=== PATIENT | female | born 1940 | race Caucasian/White ===

== ENCOUNTER 2018-07-25 19:54 | Observation (INO) ==
[2018-07-25 20:35] LABS: Hematocrit 35.3 % (37.0-47.0); Hemoglobin 10.5 gm/dL (12.5-16.0); Mean Cell Volume 95.4 fl (78-100); Mean Corpuscular Hemoglobin 28.4 pg (27-31); Mean Corpuscular Hgb Conc 29.7 g/dl (32-36); Neutrophil # 6.3 K/mm3 (1.3-6.0); Platelet Count 254 K/mm3 (150-450); Red Cell Distribution Width 13.2 % (11.5-14.0); White Blood Count 9.8 K/mm3 (4.0-10.5)
--- NOTE | 2018-07-25 20:52 | ERNOTE ---
Integumentary HPI - Narrative Date of Service: 07/25/18 - General Presenting Symptoms: other - cellulitis Time Seen by Provider: 07/25/18 20:08 Source: patient, EMS notes reviewed Exam Limitations: no limitations - Immun/Allergies/Home Medications Immunizations: IMMUNIZATION HX Immunizations Up to Date Yes Allergies/Adverse Reactions: Allergies Allergy/AdvReac Type Severity Reaction Status Date / Time cephalexin Allergy Severe RASH Verified 07/23/18 18:26 albuterol Allergy Verified 07/23/18 18:26 cefdinir Allergy Verified 07/23/18 18:26 Sulfa (Sulfonamide Allergy Verified 07/23/18 18:26 Antibiotics) Home Medications: HOME MEDICATIONS acetaminophen 325 mg tablet 650 mg PO Q4H PRN tab 03/05/18 [Last Taken Unknown] ascorbic acid (vitamin C) 500 mg tablet 500 mg PO DAILY 03/05/18 [Last Taken 05/10/18] aspirin 81 mg tablet,delayed release 81 mg PO DAILY 03/05/18 [Last Taken 05/10/18] bisacodyl 10 mg rectal suppository 10 mg [place] DAILY PRN 03/05/18 [Last Taken Unknown] calcium carbonate 200 mg calcium (500 mg) chewable tablet 200 mg PO QID PRN tab 03/05/18 [Last Taken Unknown] cholecalciferol (vitamin D3) 2,000 unit tablet 4,000 unit PO DAILY 03/05/18 [Last Taken 05/10/18] cyanocobalamin (vit B-12) 500 mcg tablet 500 mcg PO DAILY 03/05/18 [Last Taken 05/10/18] fluticasone 220 mcg/actuation HFA aerosol inhaler 2 puff IH BID 30 Days #12 g 03/05/18 [Last Taken 05/10/18] furosemide 40 mg tablet 40 mg PO DAILY 28 Days #28 tab 03/05/18 [Last Taken 05/10/18] gabapentin 300 mg capsule 300 mg PO TID 28 Days #84 cap 03/05/18 [Last Taken 05/10/18] magnesium hydroxide 400 mg/5 mL oral suspension 30 ml PO DAILY PRN ml 03/05/18 [Last Taken Unknown] metoprolol tartrate 25 mg tablet 25 mg PO BID 28 Days #56 tab 03/05/18 [Last Taken 05/10/18] omeprazole 40 mg capsule,delayed release 40 mg PO DAILY 28 Days #28 cap 03/05/18 [Last Taken 05/10/18] polysaccharide iron complex 150 mg iron capsule 150 mg PO DAILY cap 03/05/18 [Last Taken Unknown] psyllium oral powder 2 tsp PO DAILY PRN 03/05/18 [Last Taken Unknown] tolterodine 1 mg tablet 1 mg PO BID 14 Days #28 tab 03/05/18 [Last Taken Unknown] tramadol 50 mg tablet 50 mg PO Q6H PRN 4 Days #16 tab 03/05/18 [Last Taken Unknown] Levalbuterol Tartrate [Levalbuterol Tartrate Hfa] 2 puff INHALATION Q4H PRN 05/10/18 [Last Taken Unknown] Loratadine 10 mg PO DAILY 05/10/18 [Last Taken 05/10/18] Menthol/Zinc Oxide [Calmoseptine Ointment] 1 appl TOPICAL BID PRN 05/10/18 [Last Taken Unknown] Mometasone Furoate [Elocon] 1 appl TOPICAL BID 05/10/18 [Last Taken Unknown] Mupirocin [Bactroban] 1 appl TOPICAL BID 05/10/18 [Last Taken Unknown] diphenhydramine-zinc acetate 1 %-0.1 % topical cream 1 applic TP Q12H 05/27/18 [Last Taken Unknown] nystatin 100,000 unit/gram topical powder 1 applic TP BID PRN 05/27/18 [Last Taken Unknown] pramoxine 1 %-zinc oxide 12.5 % topical ointment 1 applic TP BID PRN g 05/27/18 [Last Taken Unknown] triamcinolone acetonide 0.1 % topical cream 1 applic TP BID PRN 05/27/18 [Last Taken Unknown] amitriptyline 10 mg tablet 10 mg PO HS #13 tab 06/25/18 [Last Taken Unknown] guaifenesin 100 mg/5 mL oral liquid 200 mg PO Q4H PRN 06/25/18 [Last Taken Unknown] oxycodone-acetaminophen 2.5 mg-325 mg tablet 1 tab PO HS #30 tab 07/15/18 [Last Taken Unknown] - History of Present Illness Narrative: patient presents to ed with c/o cellulitis, was seen on thursday, started on keflx, cellulitis has worsened in lower extremities Location: Reports: lower extremity Quality: Reports: painful, burning Severity: moderate Modifying Factors - (Improves): Reports: nothing Modifying Factors - (Worsens): Reports: nothing Associated Symptoms: Reports: blisters, rash Prior Treatment: Reports: recently seen, treated by physician Review of Systems - Review of Systems Constitutional: Present: See HPI, fatigue, malaise EYE: Present: no symptoms reported ENT: Present: no symptoms reported Respiratory: Present: no symptoms reported Cardiology: Present: no symptoms reported Gastrointestinal/Abdominal: Present: no symptoms reported Genitourinary: Present: no symptoms reported Musculoskeletal: Present: no symptoms reported Skin: Present: See HPI, other - worsening celulitis of lower extremities Neurological: Present: See HPI Endocrine: Present: See HPI Hematologic/Lymphatic: Present: See HPI Psych: Present: See HPI All Other Systems: All systems neg except as marked Medical History (Last Reviewed 07/25/18 @ 20:07 by Kami Alonso RN) Bilateral bunions Bilateral lower extremity edema COPD (chronic obstructive pulmonary disease) Chronic respiratory failure, unspecified whether with hypoxia or hypercapnia Dependence on supplemental oxygen Essential (primary) hypertension Flat feet, bilateral Gastro-esophageal reflux disease without esophagitis Hx of breast lump Hx of hysterectomy Hypothyroidism, unspecified Iron deficiency anemia, unspecified Major depressive disorder with single episode Morbid (severe) obesity due to excess calories Morbid (severe) obesity with alveolar hypoventilation Muscle weakness (generalized) Onychomycosis Other abnormalities of gait and mobility Other forms of dyspnea Other sleep apnea Pain in unspecified knee Peripheral vascular disease, unspecified Polyp of colon Toe pain, bilateral Unspecified cataract Vitamin B12 deficiency anemia due to intrinsic factor deficiency Vitamin D deficiency, unspecified Surgical History: Surgical History (Last Reviewed 07/25/18 @ 20:07 by Kami Alonso RN) Hx laparoscopic cholecystectomy Hx of breast lump removal Hx of hernia repair Hx of total knee replacement Family History: Family History (Last Reviewed 07/25/18 @ 20:07 by Kami Alonso RN) Other No pertinent family history Social History: Preferred Language Austrian Do you have any pentecostal or No cultural preference? Smoking Status Never smoker (Last Updated 07/09/18 @ 16:21 by Ayla Cifuentes DPM) No Social History Section defined Physical Exam - Physical Exam General Appearance: Present: alert, anxious Head Exam: Present: normal inspection, no evidence of injury Eye Exam: Normal inspection: bilateral, PERRL: bilateral, EOMI: bilateral Ears, Nose, Throat: Present: normal ENT inspection, normal pharynx Neck: Present: normal inspection, nontender Respiratory: Present: no respiratory distress, normal breath sounds, no accessory muscle use, chest nontender, lungs clear Cardiovascular/Chest: Present: regular rate, rhythm, no murmur, normal peripheral pulses Gastrointestinal/Abdominal: Present: normal bowel sounds, nontender, nond istended, soft, no organomegaly Back Exam: Present: normal inspection, normal range of motion, no CVA tenderness, no vertebral tenderness Extremity Exam: Present: normal except - - erythema and pain to lower extremities, blisters present Neurological Exam: Present: alert, oriented, normal mood/affect, no motor/sensory deficits Skin Exam: Present: normal color, warm/dry, other - cellulitis noted above Lymphatic Exam: Present: no adenopathy Progress - Date and Time Seen: Date and Time: 07/25/18 21:[address] pereyra accepted to observation forfailed outpatient treatment of cellulitis - Results and Orders Patient's Lab Results:: I have reviewed the patient's lab results. - Vital Signs Patient's Vital Signs:: I have reviewed the patient's vital signs. Vital Signs: Vital Signs 07/25/18 20:00 Temperature 37.5 C Pulse Rate 90 Respiratory Rate 15 Blood Pressure 140/64 O2 Sat by Pulse Oximetry 99 - Progress/Reassessment Chief Complaint: Cellulitis Progress:: Unchanged - Transfer of Care Expected Disposition: Admit Plan - Plan Plan: to admit to observation Departure Clinical Impression: Cellulitis - Departure Disposition: Still a patient Condition: Stable
[2018-07-25 20:58] LABS: Albumin * 2.9 gm/dl (3.4-5.0); Anion Gap 8.7 mmol/L (6.8-13.8); BUN/Creatinine Ratio 17.6 (9.0-21.6); Bilirubin, Total 0.5 mg/dL (0.0-1.1); Ca. Corrected For Albumin 9.9 mg/dL (8.4-10.2); Calcium * 9.3 mg/dL (7.9-10.9); Potassium 3.7 mmol/L (3.4-4.6); Total Protein 6.7 gm/dL (6.2-8.2)
[2018-07-25 21:15] LABS: Urine Bilirubin Negative (NEGATIVE); Urine Blood Negative /ul (NEGATIVE); Urine Ketone Negative (NEGATIVE); Urine Nitrite Negative (NEGATIVE); Urine Protein Negative (NEGATIVE); Urine Specific Gravity <=1.005 SP.GR. (1.005-1.010); Urine Urobilinogen Normal (NORMAL)
[2018-07-25 21:21] LABS: CRP 23.7 mg/dL (0.0-0.9)
[2018-07-25] MEDS ORDERED: MORPHINE SULFATE 4 MG/ML SYRG IV ONE (21:25)
[2018-07-25 21:30] LABS: Urine Appearance Clear (CLEAR); Urine Bacteria TRACE; Urine Color Yellow; Urine RBC None Seen /hpf (0-5); Urine WBC None Seen /hpf (0-5)
[2018-07-25] MEDS ORDERED: CLINDAMYCIN PHOSPHATE 600 MG in DEXTROSE 5 % IN WATER 100 ML IV ONE ×2 (21:39)
[2018-07-25] MEDS: CLINDAMYCIN PHOSPHATE 600 MG in DEXTROSE 5 % IN WATER 100 ML IV SCH ×2 (23:49)
[2018-07-26] MEDS: CLINDAMYCIN PHOSPHATE 600 MG in DEXTROSE 5 % IN WATER 100 ML IV SCH ×2 (05:20)
[2018-07-26] MEDS ORDERED: LEVALBUTEROL HCL 1.25 MG/3 ML AMPUL IH PRN (08:39)
[2018-07-26] MEDS ORDERED: BISACODYL 10 MG SUPP.RECT RC PRN (08:39)
[2018-07-26] MEDS ORDERED: ACETAMINOPHEN 325 MG TABLET PO PRN (08:39)
--- NOTE | 2018-07-26 08:46 | HP ---
Chief Complaint - Chief Complaint Date of Service: 07/26/18 Time of Service: 08:35 Chief Complaint: cellulitis History of Present Illness: Patient seen and examined, but is uncooperative during history and physical, stating she is in a bad mood today. She is a resident of the [facility], and was treated for cellulitis with keflex. She presented to the ED when it wasn't improving. She expressed concern that her swelling will never resolve, and she will have to keep her feet up for the rest of her life, and she doesn't feel like she can do that. She is worried about having a crack in her right knee after her fall 2 days prior. Medical History (Last Reviewed 07/25/18 @ 23:31 by Shirley Singh RN) Bilateral bunions Bilateral lower extremity edema COPD (chronic obstructive pulmonary disease) Chronic respiratory failure, unspecified whether with hypoxia or hypercapnia Dependence on supplemental oxygen Essential (primary) hypertension Flat feet, bilateral Gastro-esophageal reflux disease without esophagitis Hx of breast lump Hx of hysterectomy Hypothyroidism, unspecified Iron deficiency anemia, unspecified Major depressive disorder with single episode Morbid (severe) obesity due to excess calories Morbid (severe) obesity with alveolar hypoventilation Muscle weakness (generalized) Onychomycosis Other abnormalities of gait and mobility Other forms of dyspnea Other sleep apnea Pain in unspecified knee Peripheral vascular disease, unspecified Polyp of colon Toe pain, bilateral Unspecified cataract Vitamin B12 deficiency anemia due to intrinsic factor deficiency Vitamin D deficiency, unspecified Surgical History: Surgical History (Last Reviewed 07/25/18 @ 23:31 by Shirley Singh RN) Hx laparoscopic cholecystectomy Hx of breast lump removal Hx of hernia repair Hx of total knee replacement Family History: Family History (Last Reviewed 07/25/18 @ 23:31 by Shirley Singh RN) Other No pertinent family history Social History: Patient Lives/Resources [employer] Utilized Occupation Dietary Preferred Language Estonian Do you have any yazidism or No cultural preference? Smoking Status Former smoker Have you smoked in the past 12 No months Do you dip or chew tobacco No (Last Updated 07/09/18 @ 16:21 by Ayla Cifuentes DPM) No Social History Section defined Review Of Systems (GEN) - Review of Systems Musculoskeletal: Present: Joint Pain - right knee Additional Comments: Patient declined answering ROS questions Immunizations: IMMUNIZATION HX Immunizations Up to Date Yes Allergies/Adverse Reactions: Allergies Allergy/AdvReac Type Severity Reaction Status Date / Time cephalexin Allergy Severe RASH Verified 07/23/18 18:26 albuterol Allergy Verified 07/23/18 18:26 cefdinir Allergy Verified 07/23/18 18:26 Sulfa (Sulfonamide Allergy Verified 07/23/18 18:26 Antibiotics) Home Medications: HOME MEDICATIONS acetaminophen 325 mg tablet 650 mg PO Q4H PRN tab 03/05/18 [Last Taken Unknown] ascorbic acid (vitamin C) 500 mg tablet 500 mg PO DAILY 03/05/18 [Last Taken 05/10/18] aspirin 81 mg tablet,delayed release 81 mg PO DAILY 03/05/18 [Last Taken 05/10/18] bisacodyl 10 mg rectal suppository 10 mg [place] DAILY PRN 03/05/18 [Last Taken Unknown] calcium carbonate 200 mg calcium (500 mg) chewable tablet 200 mg PO QID PRN tab 03/05/18 [Last Taken Unknown] cholecalciferol (vitamin D3) 2,000 unit tablet 4,000 unit PO DAILY 03/05/18 [Last Taken 05/10/18] cyanocobalamin (vit B-12) 500 mcg tablet 500 mcg PO DAILY 03/05/18 [Last Taken 05/10/18] fluticasone 220 mcg/actuation HFA aerosol inhaler 2 puff IH BID 30 Days #12 g 03/05/18 [Last Taken 05/10/18] furosemide 40 mg tablet 40 mg PO DAILY 28 Days #28 tab 03/05/18 [Last Taken 05/10/18] gabapentin 300 mg capsule 300 mg PO TID 28 Days #84 cap 03/05/18 [Last Taken 05/10/18] magnesium hydroxide 400 mg/5 mL oral suspension 30 ml PO DAILY PRN ml 03/05/18 [Last Taken Unknown] metoprolol tartrate 25 mg tablet 25 mg PO BID 28 Days #56 tab 03/05/18 [Last Taken 05/10/18] omeprazole 40 mg capsule,delayed release 40 mg PO DAILY 28 Days #28 cap 03/05/18 [Last Taken 05/10/18] polysaccharide iron complex 150 mg iron capsule 150 mg PO DAILY cap 03/05/18 [Last Taken Unknown] psyllium oral powder 2 tsp PO DAILY PRN 03/05/18 [Last Taken Unknown] tolterodine 1 mg tablet 1 mg PO BID 14 Days #28 tab 03/05/18 [Last Taken Unknow n] tramadol 50 mg tablet 50 mg PO Q6H PRN 4 Days #16 tab 03/05/18 [Last Taken Unknown] Levalbuterol Tartrate [Levalbuterol Tartrate Hfa] 2 puff INHALATION Q4H PRN 05/10/18 [Last Taken Unknown] Loratadine 10 mg PO DAILY 05/10/18 [Last Taken 05/10/18] Menthol/Zinc Oxide [Calmoseptine Ointment] 1 appl TOPICAL BID PRN 05/10/18 [Last Taken Unknown] Mometasone Furoate [Elocon] 1 appl TOPICAL BID 05/10/18 [Last Taken Unknown] Mupirocin [Bactroban] 1 appl TOPICAL BID 05/10/18 [Last Taken Unknown] nystatin 100,000 unit/gram topical powder 1 applic TP BID PRN 05/27/18 [Last Taken Unknown] triamcinolone acetonide 0.1 % topical cream 1 applic TP BID PRN 05/27/18 [Last Taken Unknown] amitriptyline 10 mg tablet 10 mg PO HS #13 tab 06/25/18 [Last Taken Unknown] oxycodone-acetaminophen 2.5 mg-325 mg tablet 1 tab PO HS #30 tab 07/15/18 [Last Taken Unknown] Calcium Carbonate [Tums] 500 mg PO QID PRN 07/26/18 [Last Taken Unknown] Clindamycin HCl [Cleocin HCl] 300 mg PO Q8H 07/26/18 [Last Taken Unknown] Diphenhydramine HCl [Benadryl Itch Stopping] 1 appl TOPICAL PRN PRN 07/26/18 [Last Taken Unknown] Phenylephrine/Shk Lv/Mo/Pet,Wh [Hemorrhoidal Ointment] 1 appl RC BID PRN 07/26/18 [Last Taken Unknown] Exam - Exam Vital Signs: Vital Signs - Last Taken Temp 36.6 C 07/26/18 06:00 Pulse 85 07/26/18 06:00 Resp 18 07/26/18 06:00 BP 130/65 07/26/18 06:00 Pulse Ox 93 07/26/18 06:00 Comprehensive Narrative: 07/26/18 11:30 Patient declined full physical exam, stating "Can't you see I'm eating?" Constitutional: Present: Alert, Morbidly obese Respiratory: Present: no respiratory distress Skin Exam: Present: other - erythema of bilateral anterior lower legs with chronic venous stasis changes Eye contact: Present: uncooperative Diagnostic Studies: Abnormal Lab Results 07/25/18 07/25/18 Range/Units 20:13 20:15 RBC 3.70 L (4.2-5.4) M/mm3 Hgb 10.5 L (12.5-16.0) gm/dL Hct 35.3 L (37.0-47.0) % MCHC 29.7 L (32-36) g/dl Immature Gran % (Auto) 0.50 H (0.001-0.429) % Immature Gran # (Auto) 0.05 H (0.000-0.0310) K/mm3 Lymphocytes % 19.3 L (20-51) % Monocytes % 14.0 H (0.0-9) % Neutrophils # 6.3 H (1.3-6.0) K/mm3 Monocytes # 1.4 H (0.0-1.0) k/mm3 Chloride 95 L (97-106) mmol/L Carbon Dioxide 37.0 H (24-32.6) mmol/L ALT 13 L (19-67) U/L C-Reactive Prot, Quant 23.7 H (0.0-0.9) mg/dL Albumin 2.9 L (3.4-5.0) gm/dl Microbiology 07/25/18 21:00 Urine Culture - Preliminary Urine,Catheterized No Growth Laboratory Results WBC 9.8 K/mm3 (4.0-10.5) D 07/25/18 20:13 RBC 3.70 M/mm3 (4.2-5.4) L 07/25/18 20:13 Hgb 10.5 gm/dL (12.5-16.0) L 07/25/18 20:13 Hct 35.3 % (37.0-47.0) L 07/25/18 20:13 MCV 95.4 fl (78-100) 07/25/18 20:13 MCH 28.4 pg (27-31) 07/25/18 20:13 MCHC 29.7 g/dl (32-36) L 07/25/18 20:13 RDW 13.2 % (11.5-14.0) 07/25/18 20:13 Plt Count 254 K/mm3 (150-450) 07/25/18 20:13 MPV 10.0 fl (8-12.5) 07/25/18 20:13 Immature Gran % (Auto) 0.50 % (0.001-0.429) H 07/25/18 20:13 Immature Gran # (Auto) 0.05 K/mm3 (0.000-0.0310) H 07/25/18 20:13 Neutrophils % 64.0 % (42-75.0) 07/25/18 20:13 Lymphocytes % 19.3 % (20-51) L 07/25/18 20:13 Monocytes % 14.0 % (0.0-9) H 07/25/18 20:13 Eosinophils % 1.9 % (0.0-3.0) 07/25/18 20:13 Basophils % 0.3 % (0.0-1.0) 07/25/18 20:13 Nucleated RBC % 0.0 k/mm3 (0-1) 07/25/18 20:13 Neutrophils # 6.3 K/mm3 (1.3-6.0) H 07/25/18 20:13 Lymphocytes # 1.90 k/mm3 (1.5-3.5) 07/25/18 20:13 Monocytes # 1.4 k/mm3 (0.0-1.0) H 07/25/18 20:13 Eosinophils # 0.2 k/mm3 (0.0-0.7) 07/25/18 20:13 Absolute Basophils 0.0 k/mm3 (0.0-0.1) 07/25/18 20:13 Sodium 137 mmol/L (132-142) 07/25/18 20:15 Plasma Sodium 137 mmol/L (130-142) 07/25/18 20:15 Potassium 3.7 mmol/L (3.4-4.6) 07/25/18 20:15 Chloride 95 mmol/L (97-106) L 07/25/18 20:15 Carbon Dioxide 37.0 mmol/L (24-32.6) H 07/25/18 20:15 Anion Gap 8.7 mmol/L (6.8-13.8) 07/25/18 20:15 BUN 12 mg/dL (3-23) 07/25/18 20:15 Creatinine 0.68 mg/dL (0.4-1.4) 07/25/18 20:15 Est GFR (Non-Af Amer) 89 mL/min (60-130) 07/25/18 20:15 BUN/Creatinine Ratio 17.6 (9.0-21.6) 07/25/18 20:15 Random Glucose 107 mg/dL (70-110) 07/25/18 20:15 Lactic Acid, Venous 0.6 mmol/L (0.4-2.0) 07/25/18 20:15 Calcium 9.3 mg/dL (7.9-10.9) 07/25/18 20:15 Calcium Adj for Albumin 9.9 mg/dL (8.4-10.2) 07/25/18 20:15 Total Bilirubin 0.5 mg/dL (0.0-1.1) 07/25/18 20:15 AST 15 U/L (0-48) 07/25/18 20:15 ALT 13 U/L (19-67) L 07/25/18 20:15 Alkaline Phosphatase 79 U/L (50-170) 07/25/18 20:15 C-Reactive Prot, Quant 23.7 mg/dL (0.0-0.9) H 07/25/18 20:15 Total Protein 6.7 gm/dL (6.2-8.2) 07/25/18 20:15 Albumin 2.9 gm/dl (3.4-5.0) L 07/25/18 20:15 Procalcitonin 0.10 ng/mL (0.05-0.50) 07/25/18 20:15 Urine Color Yellow 07/25/18 20:52 Urine Appearance Clear (CLEAR) 07/25/18 20:52 Urine pH 6.0 pH (5.0-7.0) 07/25/18 20:52 Ur Specific [place] <=1.005 SP.GR. (1.005-1.010) 07/25/18 20:52 Urine Protein Negative mg/dL (NEGATIVE) 07/25/18 20:52 Urine Glucose (UA) Negative mg/dL (NEGATIVE) 07/25/18 20:52 Urine Ketones Negative mg/dL (NEGATIVE) 07/25/18 20:52 Urine Blood Negative /ul (NEGATIVE) 07/25/18 20:52 Urine Nitrate Negative (NEGATIVE) 07/25/18 20:52 Urine Bilirubin Negative mg/dl (NEGATIVE) 07/25/18 20:52 Urine Urobilinogen Normal EU/dl (NORMAL) 07/25/18 20:52 Ur Leukocyte Esterase Negative /ul (NEGATIVE) 07/25/18 20:52 Urine RBC None seen /hpf (0-5) 07/25/18 20:52 Urine WBC None seen /hpf (0-5) 07/25/18 20:52 Ur Epithelial Cells 0-5 /hpf (0-5) 07/25/18 20:52 Urine Bacteria Trace (NONE) 07/25/18 20:52 Urine Culture Comments No culture indicated 07/25/18 20:52 Assessment/Plan - Assessment/Plan (1) Cellulitis Assessment: Ddx includes cellulitis, acute edema. Will treat for cellulitis with doxycycline, as she failed to improve with clindamycin and is allergic to sulfa and keflex. Will treat her swelling with 40 mg IV lasix bid, as decreasing her edema will greatly help healing. She is not febrile, and WBC not elevated. Of note, it was reported that her previous antibiotic was keflex, but it was actually clindamycin, so she was actually continued on the same medication she was previously prescribed. Antibiotic choice changed this morning. If she improved, possible DC back to the [facility] tomorrow. Problem: Acute Qualifiers: (2) Right knee pain Assessment: She was ambulating with a walker, but fell over the weekend, and is now transferred via a [facility]. Xrays obtained, which showed no fracture, but tricompartmental arthritis. It will be difficult to resolve her knee pain with her degree of obesity. PT eval pending. Continue home tramadol and oxycodone-acetaminophen. Problem: Acute (3) Venous stasis dermatitis of both lower extremities Assessment: Contributing to her presentation. Problem: Chronic (4) COPD (chronic obstructive pulmonary disease) Problem: Chronic Qualifiers: COPD type: unspecified COPD Qualified Code(s): J44.9 - Chronic obstructive pulmonary disease, unspecified (5) Dependence on continuous supplemental oxygen Problem: Chronic (6) Peripheral vascular disease Problem: Chronic (7) Hypertension Assessment: Currently well controlled. Problem: Chronic Qualifiers: Hypertension type: essential hypertension Qualified Code(s): I10 - Essential (primary) hypertension (8) Morbid obesity with BMI of 50.0-59.9, adult Problem: Chronic
[2018-07-26] MEDS ORDERED: FUROSEMIDE 10 MG/ML VIAL IV SCH ×2 (09:00→15:00)
[2018-07-26] MEDS: DOXYCYCLINE HYCLATE 100 MG TABLET PO SCH ×2 (09:44→20:38)
[2018-07-26] MEDS: TOLTERODINE TARTRATE 2 MG CAPSULE PO SCH (09:44)
[2018-07-26] MEDS: METOPROLOL TARTRATE 25 MG TABLET PO SCH ×2 (09:44→17:30)
[2018-07-26] MEDS: PANTOPRAZOLE SODIUM 40 MG TABLET.EC PO SCH (09:45)
[2018-07-26] MEDS: GABAPENTIN 300 MG CAPSULE PO SCH ×3 (09:45→17:30)
[2018-07-26] MEDS: traMADol HCL 50 MG TABLET PO PRN (10:03)
[2018-07-26] MEDS: FUROSEMIDE 10 MG/ML VIAL IV SCH (16:02)
[2018-07-26] MEDS ORDERED: oxyCODONE HCL/ACETAMINOPHEN 1 TAB TABLET PO SCH (21:00)
[2018-07-26] MEDS ORDERED: AMITRIPTYLINE HCL 10 MG TABLET PO SCH (21:00)
[2018-07-27] MEDS: FUROSEMIDE 10 MG/ML VIAL IV SCH (07:10)
[2018-07-27] MEDS: traMADol HCL 50 MG TABLET PO PRN (07:21)
[2018-07-27] MEDS ORDERED: IBUPROFEN 600 MG TABLET PO PRN (10:31)
[2018-07-27] MEDS: DOXYCYCLINE HYCLATE 100 MG TABLET PO SCH (10:34)
[2018-07-27] MEDS: TOLTERODINE TARTRATE 2 MG CAPSULE PO SCH (10:34)
[2018-07-27] MEDS: PANTOPRAZOLE SODIUM 40 MG TABLET.EC PO SCH (10:34)
[2018-07-27] MEDS: GABAPENTIN 300 MG CAPSULE PO SCH (10:34)
[2018-07-27] MEDS: METOPROLOL TARTRATE 25 MG TABLET PO SCH (10:35)
--- NOTE | 2018-07-27 11:22 | DS ---
(1) Venous stasis dermatitis of both lower extremities Problem: Acute Description of Stay: Sandra is a 78 yo female admitted for presumed failed outpatient treatment of cellulitis. On exam erythema and significant lower extremity edema was bilateral. This was more consistent with venous stasis dermatitis. She was treated with IV lasix. I do not feel she needs antibiotics and just needs to work on decreasing lower extremity edema. She will be discharged back to [facility] and will take lasix twice a day for a week then return to once daily. She does not need additional antibiotics. Procedures Performed: none Results and Findings: Pending Mircobiology Results 07/25/18 21:15 Blood Blood Culture - Preliminary NO GROWTH 24 HOURS 07/25/18 20:15 Blood Blood Culture - Preliminary NO GROWTH 24 HOURS Lab Pending Results 07/25/18 20:13: WBC 9.8 D, RBC 3.70 L, Hgb 10.5 L, Hct 35.3 L, MCV 95.4, MCH 28.4, MCHC 29.7 L, RDW 13.2, Plt Count 254, MPV 10.0, Immature Gran % (Auto) 0.50 H, Immature Gran # (Auto) 0.05 H, Neutrophils % 64.0, Lymphocytes % 19.3 L, Monocytes % 14.0 H, Eosinophils % 1.9, Basophils % 0.3, Nucleated RBC % 0.0, N eutrophils # 6.3 H, Lymphocytes # 1.90, Monocytes # 1.4 H, Eosinophils # 0.2, Absolute Basophils 0.0 07/25/18 20:15: Sodium 137, Plasma Sodium 137, Potassium 3.7, Chloride 95 L, Carbon Dioxide 37.0 H, Anion Gap 8.7, BUN 12, Creatinine 0.68, Est GFR (Non-Af Amer) 89, BUN/Creatinine Ratio 17.6, Random Glucose 107, Calcium 9.3, Calcium Adj for Albumin 9.9, Total Bilirubin 0.5, AST 15, ALT 13 L, Alkaline Phosphatase 79, C-Reactive Prot, Quant 23.7 H, Total Protein 6.7, Albumin 2.9 L 07/25/18 20:15: Lactic Acid, Venous 0.6 07/25/18 20:15: Procalcitonin 0.10 07/25/18 20:52: Urine Color Yellow, Urine Appearance Clear, Urine pH 6.0, Ur Specific [place] <=1.005, Urine Protein Negative, Urine Glucose (UA) Negative, Urine Ketones Negative, Urine Blood Negative, Urine Nitrate Negative, Urine Bilirubin Negative, Urine Urobilinogen Normal, Ur Leukocyte Esterase Negative, Urine RBC None seen, Urine WBC None seen, Ur Epithelial Cells 0-5, Urine Bacteria Trace, Urine Culture Comments No culture indicated Discharge Location: [facility] Disposition: Intermediate Care Facility ICF Condition: Stable Level of Care: ICF Discharge Activity: Activity as tolerated Discharge Diet: Low salt Referrals: Heather Martinez ARNP [[facility]] - Problem Oriented Discharge Instructions to Patient/Family: Venous Stasis or Chronic Venous Insufficiency Complete Home Medications List: Complete Home Medication List: acetaminophen 325 mg tablet 650 mg PO Q4H PRN tab 03/05/18 ascorbic acid (vitamin C) 500 mg tablet 500 mg PO DAILY 03/05/18 aspirin 81 mg tablet,delayed release 81 mg PO DAILY 03/05/18 bisacodyl 10 mg rectal suppository 10 mg [place] DAILY PRN 03/05/18 calcium carbonate 200 mg calcium (500 mg) chewable tablet 200 mg PO QID PRN tab 03/05/18 cholecalciferol (vitamin D3) 2,000 unit tablet 4,000 unit PO DAILY 03/05/18 cyanocobalamin (vit B-12) 500 mcg tablet 500 mcg PO DAILY 03/05/18 fluticasone 220 mcg/actuation HFA aerosol inhaler 2 puff IH BID 30 Days #12 g 03/05/18 furosemide 40 mg tablet 40 mg PO DAILY 28 Days #28 tab 03/05/18 gabapentin 300 mg capsule 300 mg PO TID 28 Days #84 cap 03/05/18 magnesium hydroxide 400 mg/5 mL oral suspension 30 ml PO DAILY PRN ml 03/05/18 metoprolol tartrate 25 mg tablet 25 mg PO BID 28 Days #56 tab 03/05/18 omeprazole 40 mg capsule,delayed release 40 mg PO DAILY 28 Days #28 cap 03/05/18 polysaccharide iron complex 150 mg iron capsule 150 mg PO DAILY cap 03/05/18 psyllium oral powder 2 tsp PO DAILY PRN 03/05/18 tolterodine 1 mg tablet 1 mg PO BID 14 Days #28 tab 03/05/18 tramadol 50 mg tablet 50 mg PO Q6H PRN 4 Days #16 tab 03/05/18 Levalbuterol Tartrate [Levalbuterol Tartrate Hfa] 2 puff INHALATION Q4H PRN 05/10/18 Loratadine 10 mg PO DAILY 05/10/18 Menthol/Zinc Oxide [Calmoseptine Ointment] 1 appl TOPICAL BID PRN 05/10/18 Mometasone Furoate [Elocon] 1 appl TOPICAL BID 05/10/18 Mupirocin [Bactroban] 1 appl TOPICAL BID 05/10/18 nystatin 100,000 unit/gram topical powder 1 applic TP BID PRN 05/27/18 triamcinolone acetonide 0.1 % topical cream 1 applic TP BID PRN 05/27/18 amitriptyline 10 mg tablet 10 mg PO HS #13 tab 06/25/18 oxycodone-acetaminophen 2.5 mg-325 mg tablet 1 tab PO HS #30 tab 07/15/18 Calcium Carbonate [Tums] 500 mg PO QID PRN 07/26/18 Clindamycin HCl [Cleocin HCl] 300 mg PO Q8H 07/26/18 Diphenhydramine HCl [Benadryl Itch Stopping] 1 appl TOPICAL PRN PRN 07/26/18 Phenylephrine/Shk Lv/Mo/Pet,Wh [Hemorrhoidal Ointment] 1 appl RC BID PRN 07/26/18
[2018-07-27 12:22] VITALS: BP 147/80
== END 2018-07-27 12:50 ==
LOC: ER 19:54 → MS 19:54
PROVIDERS: ADMIT Family Medicine; ATTEND Family Medicine
DX: I10 Essential (primary) hypertension; M25.569 Pain in unspecified knee; E66.01 Morbid (severe) obesity due to excess calories; L03.90 Cellulitis, unspecified; I87.8 Other specified disorders of veins; J44.9 Chronic obstructive pulmonary disease, unspecified
CPT/HCPCS: 36415; 73562; 80053; 81001; 83605; 84145; 85025; 86140; 87040; 87081; 87086; 94640; 94660; 94664; 96365; 96375; 99285; G0378

== ENCOUNTER 2018-09-11 22:01 | Inpatient (IN) ==
[2018-09-11 22:22] LABS: Hematocrit 37.9 % (37.0-47.0); Hemoglobin 11.4 gm/dL (12.5-16.0); Mean Cell Volume 94.3 fl (78-100); Mean Corpuscular Hemoglobin 28.4 pg (27-31); Mean Corpuscular Hgb Conc 30.1 g/dl (32-36); Mean Platelet Volume 9.6 fl (8-12.5); Platelet Count 253 K/mm3 (150-450); Red Blood Count 4.02 M/mm3 (4.2-5.4); Red Cell Distribution Width 13.1 % (11.5-14.0); White Blood Count 13.6 K/mm3 (4.0-10.5)
[2018-09-11 22:25] LABS: Total Cells Counted 100
[2018-09-11] MEDS ORDERED: PIPERACILLIN SODIUM/TAZOBACTAM 3.375 GM in DEXTROSE 5 % IN WATER 100 ML IV ONE ×2 (22:25)
[2018-09-11] MEDS ORDERED: LEVOFLOXACIN 500 MG TABLET PO ONE (22:25)
[2018-09-11] MEDS ORDERED: ALBUTEROL SULFATE/IPRATROPIUM 3 ML NEBU IH SCH (22:30)
--- NOTE | 2018-09-11 22:31 | ERNOTE ---
Date of Service: 09/11/18 Time Seen by Provider: 09/11/18 22:21 Stated Complaint: pneumonia Presenting Symptoms:: cough, fever Source: patient, family Immunizations: IMMUNIZATION HX Immunizations Up to Date Yes Allergies/Adverse Reactions: Allergies cephalexin Allergy (Severe, Verified 09/11/18 22:16) RASH albuterol Allergy (Verified 09/11/18 22:16) cefdinir Allergy (Verified 09/11/18 22:16) Sulfa (Sulfonamide Antibiotics) Allergy (Verified 09/11/18 22:16) Home Medications: HOME MEDICATIONS acetaminophen 325 mg tablet 650 mg PO Q4H PRN tab 03/05/18 [Last Taken Unknown] ascorbic acid (vitamin C) 500 mg tablet 500 mg PO DAILY 03/05/18 [Last Taken 05/10/18] aspirin 81 mg tablet,delayed release 81 mg PO DAILY 03/05/18 [Last Taken 05/10/18] bisacodyl 10 mg rectal suppository 10 mg [place] DAILY PRN 03/05/18 [Last Taken Unknown] calcium carbonate 200 mg calcium (500 mg) chewable tablet 200 mg PO QID PRN tab 03/05/18 [Last Taken Unknown] cholecalciferol (vitamin D3) 2,000 unit tablet 4,000 unit PO DAILY 03/05/18 [Last Taken 05/10/18] cyanocobalamin (vit B-12) 500 mcg tablet 500 mcg PO DAILY 03/05/18 [Last Taken 05/10/18] fluticasone 220 mcg/actuation HFA aerosol inhaler 2 puff IH BID 30 Days #12 g 03/05/18 [Last Taken 05/10/18] gabapentin 300 mg capsule 300 mg PO TID 28 Days #84 cap 03/05/18 [Last Taken 0 05/10/18] magnesium hydroxide 400 mg/5 mL oral suspension 30 ml PO DAILY PRN ml 03/05/18 [Last Taken Unknown] metoprolol tartrate 25 mg tablet 25 mg PO BID 28 Days #56 tab 03/05/18 [Last Taken 05/10/18] omeprazole 40 mg capsule,delayed release 40 mg PO DAILY 28 Days #28 cap 03/05/18 [Last Taken 05/10/18] polysaccharide iron complex 150 mg iron capsule 150 mg PO DAILY cap 03/05/18 [Last Taken Unknown] psyllium oral powder 2 tsp PO DAILY PRN 03/05/18 [Last Taken Unknown] tolterodine 1 mg tablet 1 mg PO BID 14 Days #28 tab 03/05/18 [Last Taken Unknown] tramadol 50 mg tablet 50 mg PO Q6H PRN 4 Days #16 tab 03/05/18 [Last Taken Unknown] Levalbuterol Tartrate [Levalbuterol Tartrate Hfa] 2 puff INHALATION Q4H PRN 05/10/18 [Last Taken Unknown] Loratadine 10 mg PO DAILY 05/10/18 [Last Taken 05/10/18] nystatin 100,000 unit/gram topical powder 1 applic TP BID PRN 05/27/18 [Last Taken Unknown] amitriptyline 10 mg tablet 10 mg PO HS #13 tab 06/25/18 [Last Taken Unknown] Diphenhydramine HCl [Benadryl Itch Stopping] 1 appl TOPICAL PRN PRN 07/26/18 [Last Taken Unknown] Phenylephrine/Shk Lv/Mo/Pet,Wh [Hemorrhoidal Ointment] 1 appl RC BID PRN 07/26/18 [Last Taken Unknown] Furosemide [Lasix] 40 mg PO DAILY 28 Days #28 tab 07/27/18 [Last Taken Unknown] fluticasone 50 mcg/actuation nasal spray,suspension 2 spray NATE DAILY #15.8 g 07/30/18 [Last Taken Unknown] escitalopram 5 mg tablet 5 mg PO DAILY #30 tab 08/12/18 [Last Taken Unknown] tramadol 50 mg tablet 50 mg PO DAILY #30 tab 09/06/18 [Last Taken Unknown] dextromethorphan-guaifenesin 5 mg-100 mg/5 mL oral liquid 10 ml PO Q8H PRN #180 ml 09/09/18 [Last Taken Unknown] oxyCODONE HCL/ACETAMINOPHEN [Percocet 2.5-325 mg Tablet] 1 tab PO HS 09/11/18 [Last Taken Unknown] - History of Present Ilness Narrative: This is a 78-year-old female with a history of CHF and recent pneumonia who was diagnosed with pneumonia after having some coughing and shortness of breath a few weeks ago. She was on antibiotics and seemed to do a bit better. After the course of antibiotics the repeat x-ray showed continuation of the infiltrates however the decision was made to not give further antibiotics. Since then the patient has had increasing shortness of breath and increasing oxygen requirements. She is usually on no oxygen supplementation but she is now requiring 3 L/min nasal cannula to keep her saturation of 95%. The patient is coughing up a green thick mucus. She has had a fever intermittently. Should be noted that the patient really is unable to answer most questions however family member accompanying the patient is able to give answers. The patient says she has been complaining of a little bit of chest pain, primarily when she coughs. No abdominal pain, nausea, vomiting, diarrhea, urinary symptoms. No other complaints Review of Systems - Review of Systems Constitutional: Present: See HPI, recent illness, fever, malaise EYE: Present: no symptoms reported ENT: Present: no symptoms reported Respiratory: Present: See HPI, shortness of breath, cough, wheezing Cardiology: Present: chest pain Gastrointestinal/Abdominal: Present: no symptoms reported Genitourinary: Present: no symptoms reported Musculoskeletal: Present: no symptoms reported Skin: Present: no symptoms reported, other - Patient does have a rash to her le gs but she says she is not worried about it because she always has this due to her heart failure Neurological: Present: no symptoms reported Endocrine: Present: no symptoms reported Hematologic/Lymphatic: Present: no symptoms reported Psych: Present: no symptoms reported All Other Systems: All systems neg except as marked Medical History (Updated 07/27/18 @ 11:24 by Gasper Bledsoe DO) Bilateral bunions Bilateral lower extremity edema COPD (chronic obstructive pulmonary disease) Chronic respiratory failure, unspecified whether with hypoxia or hypercapnia Dependence on supplemental oxygen Essential (primary) hypertension Flat feet, bilateral Gastro-esophageal reflux disease without esophagitis Hx of breast lump Hx of hysterectomy Hypothyroidism, unspecified Iron deficiency anemia, unspecified Major depressive disorder with single episode Morbid (severe) obesity due to excess calories Morbid (severe) obesity with alveolar hypoventilation Muscle weakness (generalized) Onychomycosis Other abnormalities of gait and mobility Other forms of dyspnea Other sleep apnea Pain in unspecified knee Peripheral vascular disease, unspecified Polyp of colon Toe pain, bilateral Unspecified cataract Vitamin B12 deficiency anemia due to intrinsic factor deficiency Vitamin D deficiency, unspecified Surgical History: Surgical History (Updated 07/27/18 @ 11:24 by Gasper Bledsoe DO) Hx laparoscopic cholecystectomy Hx of breast lump removal Hx of hernia repair Hx of total knee replacement Family History: Family History (Updated 07/23/18 @ 18:27 by Kami Alonso RN) Other No pertinent family history Social History: Preferred Language Albanian Smoking Status Former smoker Alcohol Use none Drug Use none (Last Updated 07/09/18 @ 16:21 by Ayla Cifuentes DPM) No Social History Section defined Physical Exam - Physical Exam General Appearance: Present: wd/wn, alert, no apparent distress Head Exam: Present: normal inspection, no evidence of injury Eye Exam: Normal inspection: bilateral, PERRL: bilateral, EOMI: bilateral Ears, Nose, Throat: Present: normal ENT inspection, normal pharynx, other - Membranes are moist Neck: Present: normal inspection, nontender, other - Significant redundant skin folds and fat in the neck. Trachea in the midline. No significant adenopathy Respiratory: Present: no respiratory distress, other - Patient has diffuse wheezes throughout. Primarily end expiratory. Reasonable air entry. Cardiovascular/Chest: Present: regular rate, rhythm, no murmur Gastrointestinal/Abdominal: Present: normal bowel sounds, nontender, soft, other - Obese soft Back Exam: Present: no vertebral tenderness Extremity Exam: Present: other - Patient has 3+ edema to bilateral legs to the knees. Chronic stasis changes with tiny vesicles on the shins anteriorly bilaterally. Patient and family member say this are completely normal for the patient and that she looks no different than she does usually for the last year Neurological Exam: Present: alert, oriented, normal mood/affect, no motor/sensory deficits, other - Patient has some trouble with recent memory. Seems to have a little bit of trouble focusing on questions being asked. Does know where she is and who is with her Skin Exam: Present: other - Erythema to the lower shins bilaterally from the venous stasis changes. Patient says these are normal Lymphatic Exam: Present: no adenopathy Progress - Results and Orders Patient's Lab Results:: I have reviewed the patient's lab results. - Vital Signs Patient's Vital Signs:: I have reviewed the patient's vital signs. Vital Signs: Vital Signs 09/11/18 22:02 Temperature 37.1 C Pulse Rate 82 Respiratory Rate 16 Blood Pressure 148/71 O2 Sat by Pulse Oximetry 95 - EKG EKG #1 EKG read: Interp. by me EKG Comments: Sinus rhythm first-degree AV block NJ interval is 231. Normal axis. No other abnormalities of the intervals. No ST elevation. T waves are inverted in lead III which is a normal variant. Inverted in V1 which is a normal variant. No other abnormalities - X-Ray X-Ray #1 X-Ray: chest Interpretation: Interp. by me X-ray Comments: Chest x-ray shows persistence of right lower lung/lobe consolidation. There may be a small left lingular infiltrate. Previously noted cardiomegaly seems to be a bit better. No vascular congestion - Progress/Reassessment Chief Complaint: Cough Progress:: Unchanged Plan - Plan Plan: 78-year-old female from a alf with fever, white count, coughing up green sputum. No fever here. Does not meet criteria for sepsis. Started on Levaquin and Zosyn. Has been having increased oxygen requirements but doing fine here. Did have some wheezing so received a breathing treatment. I have spoken to the hospital doctor application security consultant and will admit the patient overnight. Suspect this will need to be several days so will make patient a full admission. Diagnosis is pneumonia with hypoxia Departure Clinical Impression: Pneumonia - Departure Disposition: Still a patient Condition: Fair
[2018-09-11 22:36] LABS: Eosinophil 2 % (0-3); Lymphocyte 14 % (20-51); Monocyte 16 % (0-9); Neutrophil 68 % (42-75); Neutrophil # 9.2 K/mm3 (1.3-6.0); Platelet Estimate Normal (NORMAL)
[2018-09-11 22:37] LABS: Hypochromia 1+
[2018-09-11 22:47] LABS: ALT 20 U/L (19-67); AST 17 U/L (0-48); Albumin * 3.2 gm/dl (3.4-5.0); Alkaline Phosphatase * 93 U/L (50-170); BNP * 290 pg/mL (5-550); BUN/Creatinine Ratio 16.4 (9.0-21.6); Bilirubin, Total 0.8 mg/dL (0.0-1.1); Blood Urea Nitrogen 11 mg/dL (3-23); Ca. Corrected For Albumin 10.6 mg/dL (8.4-10.2); Calcium * 10.3 mg/dL (7.9-10.9); Carbon Dioxide 36.4 mmol/L (24-32.6); Chloride 93 mmol/L (97-106); Glucose * 114 mg/dL (70-110); Potassium 4.4 mmol/L (3.4-4.6); Sodium 134 mmol/L (132-142); Troponin I Less than 0.017 ng/mL (0.00-0.10)
[2018-09-11 23:26] LABS: Urine Bilirubin Negative (NEGATIVE); Urine Blood 25 /ul (NEGATIVE); Urine Ketone Negative (NEGATIVE); Urine Nitrite Negative (NEGATIVE); Urine Protein Negative (NEGATIVE); Urine Specific Gravity 1.025 SP.GR. (1.005-1.010); Urine Urobilinogen Normal (NORMAL)
[2018-09-11 23:33] LABS: Urine Appearance Slightly Cloudy (CLEAR); Urine Bacteria None Seen; Urine Color Yellow; Urine RBC None Seen /hpf (0-5)
[2018-09-12] MEDS ORDERED: ALBUTEROL SULFATE/IPRATROPIUM 3 ML NEBU IH SCH (01:00)
[2018-09-12] MEDS: ACETAMINOPHEN 325 MG TABLET PO PRN ×3 (02:15→18:59)
[2018-09-12] MEDS: ONDANSETRON HCL/PF 2 MG/ML VIAL IV PRN ×2 (02:17→08:44)
--- NOTE | 2018-09-12 13:12 | HP ---
Chief Complaint - Chief Complaint Date of Service: 09/12/18 Time of Service: 10:12 Chief Complaint: Cough, does not feel well History of Present Illness: 78-year-old female with history of lung disease, on chronic O2 therapy brought into the ER for productive cough and fevers. Per ER physician this is been ongoing for a couple of days, patient was given Zosyn and Levaquin and placed under observation on the floor. When patient was visited, patient is confused and unable to answer questions, continually stating I do not know to every question asked. All she is continues to say is I do not feel well. I do not know what her baseline mentation is. All her vital signs have been stable and she is afebrile (temp of 38.6 on admission). Normally she requires 2 L of oxygen to maintain sats, since she has been sick she has been required 3 L. She uses CPAP machine for sleep apnea at night. Medical History (Updated 09/12/18 @ 13:12 by Alex Paniagua DO) Bilateral bunions Bilateral lower extremity edema COPD (chronic obstructive pulmonary disease) Chronic respiratory failure, unspecified whether with hypoxia or hypercapnia Dependence on supplemental oxygen Essential (primary) hypertension Flat feet, bilateral Gastro-esophageal reflux disease without esophagitis Hx of breast lump Hx of hysterectomy Hypothyroidism, unspecified Iron deficiency anemia, unspecified Major depressive disorder with single episode Morbid (severe) obesity due to excess calories Morbid (severe) obesity with alveolar hypoventilation Muscle weakness (generalized) Onychomycosis Other abnormalities of gait and mobility Other forms of dyspnea Other sleep apnea Pain in unspecified knee Peripheral vascular disease, unspecified Polyp of colon Toe pain, bilateral Unspecified cataract Vitamin B12 deficiency anemia due to intrinsic factor deficiency Vitamin D deficiency, unspecified Surgical History: Surgical History (Updated 07/27/18 @ 11:24 by Gasper Bledsoe DO) Hx laparoscopic cholecystectomy Hx of breast lump removal Hx of hernia repair Hx of total knee replacement Family History: Family History (Updated 07/23/18 @ 18:27 by Kami Alonso RN) Other No pertinent family history Social History: Patient Lives/Resources [facility] Utilized Occupation retired Preferred Language Ukrainian Do you have any amish or No cultural preference? Smoking Status Former smoker Have you smoked in the past 12 No months Alcohol Use none Drug Use none (Last Updated 07/09/18 @ 16:21 by Ayla Cifuentes DPM) No Social History Section defined Review Of Systems (GEN) - Review of Systems Generalized/Overall Review: Present: No Symptoms Reported - Patient refusing to answer, states I do not know to every question Immunizations: IMMUNIZATION HX Immunizations Up to Date Yes Allergies/Adverse Reactions: Allergies Allergy/AdvReac Type Severity Reaction Status Date / Time cephalexin Allergy Severe RASH Verified 09/12/18 01:20 albuterol Allergy Verified 09/12/18 01:20 cefdinir Allergy Verified 09/12/18 01:20 Sulfa (Sulfonamide Allergy Verified 09/12/18 01:20 Antibiotics) Home Medications: HOME MEDICATIONS acetaminophen 325 mg tablet 650 mg PO Q4H PRN tab 03/05/18 [Last Taken 09/03/18] ascorbic acid (vitamin C) 500 mg tablet 500 mg PO DAILY 03/05/18 [Last Taken 09/11/18] aspirin 81 mg tablet,delayed release 81 mg PO DAILY 03/05/18 [Last Taken 09/11/18] bisacodyl 10 mg rectal suppository 10 mg AR DAILY PRN 03/05/18 [Last Taken Unknown] calcium carbonate 200 mg calcium (500 mg) chewable tablet 500 mg PO QID PRN tab 03/05/18 [Last Taken Unknown] cholecalciferol (vitamin D3) 2,000 unit tablet 4,000 unit PO DAILY 03/05/18 [Last Taken 09/11/18] cyanocobalamin (vit B-12) 500 mcg tablet 500 mcg PO DAILY 03/05/18 [Last Taken 09/11/18] fluticasone 220 mcg/actuation HFA aerosol inhaler 2 puff IH BID 30 Days #12 g 03/05/18 [Last Taken 09/11/18] gabapentin 300 mg capsule 300 mg PO TID 28 Days #84 cap 03/05/18 [Last Taken 09/11/18] magnesium hydroxide 400 mg/5 mL oral suspension 30 ml PO DAILY PRN ml 03/05/18 [Last Taken 09/11/18] metoprolol tartrate 25 mg tablet 25 mg PO BID 28 Days #56 tab 03/05/18 [Last Taken 09/11/18] omeprazole 40 mg capsule,delayed release 40 mg PO DAILY 28 Days #28 cap 03/05/18 [Last Taken 09/11/18] psyllium oral powder 2 tsp PO DAILY PRN 03/05/18 [Last Taken Unknown] tolterodine 1 mg tablet 1 mg PO BID 14 Days #28 tab 03/05/18 [Last Taken 09/11/18] tramadol 50 mg tablet 50 mg PO Q6H PRN 4 Days #16 tab 03/05/18 [Last Taken 09/11/18] Loratadine 10 mg PO DAILY 05/10/18 [Last Taken 09/11/18] amitriptyline 10 mg tablet 10 mg PO HS #13 tab 06/25/18 [Last Taken 09/10/18] Furosemide [Lasix] 40 mg PO DAILY 28 Days #28 tab 07/27/18 [Last Taken 09/11/18] fluticasone 50 mcg/actuation nasal spray,suspension 2 spray NATE DAILY #15.8 g 07/30/18 [Last Taken 09/10/18] escitalopram 5 mg tablet 5 mg PO DAILY #30 tab 08/12/18 [Last Taken 09/11/18] tramadol 50 mg tablet 50 mg PO DAILY #30 tab 09/06/18 [Last Taken 09/11/18] dextromethorphan-guaifenesin 5 mg-100 mg/5 mL oral liquid 10 ml PO Q8H PRN #180 ml 09/09/18 [Last Taken 09/11/18] oxyCODONE HCL/ACETAMINOPHEN [Percocet 2.5-325 mg Tablet] 1 tab PO HS PRN 09/11/18 [Last Taken 09/10/18] Iron Aspgly,Ps/C/Succinic Acid [Ferrex 150 Plus Capsule] 1 ea PO DAILY 09/12/18 [Last Taken 09/11/18] Levalbuterol Tartrate [Xopenex Hfa] 90 mcg INHALATION Q4H PRN 09/12/18 [Last Taken Unknown] Exam - Exam Vital Signs: Vital Signs - Last Taken Temp 36.8 C 09/12/18 12:51 Pulse 82 09/12/18 12:51 Resp 18 09/12/18 12:51 BP 141/71 09/12/18 12:51 Pulse Ox 95 09/12/18 12:51 Constitutional: Present: Alert, Oriented x3, Elderly, Morbidly obese ENT Exam: Present: hearing grossly normal. Absent: nasal drainage Eye Exam: bilateral eye: normal inspection Neck: Present: non-tender, supple. Absent: lymphadenopathy (R), lymphadenopathy (L) Respiratory: Present: crackles - Right middle and lower lobe. Absent: stridor, wheezing Cardiovascular/Chest: Present: normal peripheral pulses, regular rate, rhythm Abdomen: Present: Normal bowel sounds, soft, nontender Skin Exam: Present: warm/dry, other - Venous stasis changes bilateral lower extremities midshin Appearance: Present: disheveled, impaired insight Eye contact: Present: good eye contact, refused to answer - Again unsure of baseline mentation Thoughts: Present: no apparent hallucination, normal mood /affect Diagnostic Studies: Abnormal Lab Results 09/11/18 09/11/18 09/11/18 Range/Units 22:17 22:20 23:21 WBC 13.6 H (4.0-10.5) K/mm3 RBC 4.02 L (4.2-5.4) M/mm3 Hgb 11.4 L (12.5-16.0) gm/dL MCHC 30.1 L (32-36) g/dl Lymphocytes % (Manual) 14 L (20-51) % Monocytes % (Manual) 16 H (0-9) % Neutrophils # (Manual) 9.2 H (1.3-6.0) K/mm3 Monocytes # (Manual) 2.2 H (0.0-1.0) k/mm3 Chloride 93 L (97-106) mmol/L Carbon Dioxide 36.4 H (24-32.6) mmol/L Random Glucose 114 H (70-110) mg/dL Calcium Adj for Albumin 10.6 H (8.4-10.2) mg/dL Albumin 3.2 L (3.4-5.0) gm/dl Urine Blood 25 H (NEGATIVE) /ul Urine WBC 5-10 H (0-5) /hpf Microbiology 09/11/18 23:22 Sputum Culture - Preliminary Sputum Laboratory Results WBC 13.6 K/mm3 (4.0-10.5) H 09/11/18 22:17 RBC 4.02 M/mm3 (4.2-5.4) L 09/11/18 22:17 Hgb 11.4 gm/dL (12.5-16.0) L 09/11/18 22:17 Hct 37.9 % (37.0-47.0) 09/11/18 22:17 MCV 94.3 fl (78-100) 09/11/18 22:17 MCH 28.4 pg (27-31) 09/11/18 22:17 MCHC 30.1 g/dl (32-36) L 09/11/18 22:17 RDW 13.1 % (11.5-14.0) 09/11/18 22:17 Plt Count 253 K/mm3 (150-450) 09/11/18 22:17 MPV 9.6 fl (8-12.5) 09/11/18 22:17 68 % (42-75) 09/11/18 22:17 14 % (20-51) L 09/11/18 22:17 16 % (0-9) H 09/11/18 22:17 2 % (0-3) 09/11/18 22:17 9.2 K/mm3 (1.3-6.0) H 09/11/18 22:17 1.9 k/mm3 (1.5-3.5) 09/11/18 22:17 2.2 k/mm3 (0.0-1.0) H 09/11/18 22:17 0.3 k/mm3 (0.0-0.7) 09/11/18 22:17 Normal (NORMAL) 09/11/18 22:17 1+ 09/11/18 22:17 1+ 09/11/18 22:17 Sodium 134 mmol/L (132-142) 09/11/18 22:20 134 mmol/L (130-142) 09/11/18 22:20 Potassium 4.4 mmol/L (3.4-4.6) 09/11/18 22:20 Chloride 93 mmol/L (97-106) L 09/11/18 22:20 Carbon Dioxide 36.4 mmol/L (24-32.6) H 09/11/18 22:20 9.0 mmol/L (6.8-13.8) 09/11/18 22:20 BUN 11 mg/dL (3-23) D 09/11/18 22:20 0.67 mg/dL (0.4-1.4) 09/11/18 22:20 Est GFR (Non-Af Amer) 91 mL/min (60-130) 05/25/19 22:20 16.4 (9.0-21.6) 09/11/18 22:20 114 mg/dL (70-110) H 09/11/18 22:20 0.4 mmol/L (0.4-2.0) 09/11/18 22:40 Calcium 10.3 mg/dL (7.9-10.9) 09/11/18 22:20 Calcium Adj for Albumin 10.6 mg/dL (8.4-10.2) H 09/11/18 22:20 0.8 mg/dL (0.0-1.1) 09/11/18 22:20 AST 17 U/L (0-48) 09/11/18 22:20 ALT 20 U/L (19-67) 09/11/18 22:20 93 U/L (50-170) 09/11/18 22:20 Less than 0.017 ng/mL (0.00-0.10) 09/11/18 22:20 B-Natriuretic Peptide 290 pg/mL (5-550) 09/11/18 22:20 7.0 gm/dL (6.2-8.2) 09/11/18 22:20 3.2 gm/dl (3.4-5.0) L 09/11/18 22:20 Yellow 09/11/18 23:21 Slightly cloudy (CLEAR) 09/11/18 23:21 6.0 pH (5.0-7.0) 09/11/18 23:21 Ur Specific [place] 1.025 SP.GR. (1.005-1.010) 09/11/18 23:21 Negative mg/dL (NEGATIVE) 09/11/18 23:21 Negative mg/dL (NEGATIVE) 09/11/18 23:21 Negative mg/dL (NEGATIVE) 09/11/18 23:21 25 /ul (NEGATIVE) H 09/11/18 23:21 Negative (NEGATIVE) 09/11/18 23:21 Negative mg/dl (NEGATIVE) 09/11/18 23:21 Normal EU/dl (NORMAL) 09/11/18 23:21 Ur Leukocyte Esterase Negative /ul (NEGATIVE) 09/11/18 23:21 None seen /hpf (0-5) 09/11/18 23:21 5-10 /hpf (0-5) H 09/11/18 23:21 Ur Epithelial Cells Trace /hpf (0-5) 09/11/18 23:21 None seen (NONE) 09/11/18 23:21 Culture to follow 09/11/18 23:21 Influenza Type A Ag Negative (NEGATIVE) 09/11/18 22:45 Influenza Type B Ag Negative (NEGATIVE) 09/11/18 22:45 Assessment/Plan - Narrative Narrative: Patient currently not in any distress. Her vital signs are stable. Maintaining good saturation on 3 L. Patient started on Levaquin in the ER, will continue. We will stop the Zosyn. Will order PT and OT as she needs to be evaluated for mobility/weakness. We will have nurse notify me if family shows so I can discuss her current medical condition as well as her chronic medical conditions. We will restart her home medications. SCDs to be used while in bed. Will start patient on a consistent carb diet as that is what she was placed on by the ER though I do not see any diabetic medications in her chart. Unsure as to why she is on Percocet and tramadol, hold these medications as they may be affecting her mentation. We will again discuss them with her and family when they are available. Tylenol as needed for aches and pains. Nurses will call with any questions or concerns. - Assessment/Plan (1) Right knee pain Problem: Acute (2) COPD (chronic obstructive pulmonary disease) Problem: Chronic Qualifiers: COPD type: unspecified COPD Qualified Code(s): J44.9 - Chronic obstructive pulmonary disease, unspecified (3) Dependence on continuous supplemental oxygen Problem: Chronic (4) Morbid obesity with BMI of 50.0-59.9, adult Problem: Chronic (5) Venous stasis dermatitis of both lower extremities Problem: Chronic (6) Hypertension Problem: Chronic Qualifiers: Hypertension type: essential hypertension Qualified Code(s): I10 - Essential (primary) hypertension (7) Pneumonia Problem: Acute Qualifiers:
[2018-09-12] MEDS ORDERED: ACETAMINOPHEN 325 MG TABLET PO PRN (14:19)
[2018-09-12] MEDS ORDERED: LEVALBUTEROL HCL 0.63 MG/3 ML AMPUL IH PRN (15:00)
[2018-09-12] MEDS: IBUPROFEN 600 MG TABLET PO PRN ×2 (15:28→23:34)
[2018-09-12] MEDS: GABAPENTIN 300 MG CAPSULE PO SCH (16:55)
[2018-09-12] MEDS: BUDESONIDE 0.5 MG/2 ML VIAL.NEB IH SCH (18:13)
[2018-09-12] MEDS: METOPROLOL TARTRATE 25 MG TABLET PO SCH (21:35)
[2018-09-12] MEDS: AMITRIPTYLINE HCL 10 MG TABLET PO SCH (21:35)
[2018-09-12] MEDS: LEVOFLOXACIN IN DEXTROSE 5 % 500 MG/100 ML BAG IV SCH (22:17)
[2018-09-13] MEDS: ACETAMINOPHEN 325 MG TABLET PO PRN ×4 (02:48→20:44)
[2018-09-13] MEDS: IBUPROFEN 600 MG TABLET PO PRN ×2 (08:23→17:38)
[2018-09-13] MEDS: TOLTERODINE TARTRATE 2 MG CAPSULE PO SCH (08:24)
[2018-09-13] MEDS: LORATADINE 10 MG TABLET PO SCH (08:24)
[2018-09-13] MEDS: PANTOPRAZOLE SODIUM 40 MG TABLET.EC PO SCH (08:24)
[2018-09-13] MEDS: METOPROLOL TARTRATE 25 MG TABLET PO SCH ×2 (08:24→20:10)
[2018-09-13] MEDS: ESCITALOPRAM OXALATE 10 MG TAB PO SCH (08:24)
[2018-09-13] MEDS: ASPIRIN 81 MG TABLET.DR PO SCH (08:24)
[2018-09-13] MEDS: FUROSEMIDE 40 MG TABLET PO SCH (08:24)
[2018-09-13] MEDS: GABAPENTIN 300 MG CAPSULE PO SCH ×3 (08:24→17:38)
[2018-09-13] MEDS: FLUTICASONE PROPIONATE 120 SPRAY INHALER NS SCH (08:28)
[2018-09-13] MEDS: BUDESONIDE 0.5 MG/2 ML VIAL.NEB IH SCH ×2 (08:55→19:16)
--- NOTE | 2018-09-13 11:01 | PN ---
Subjective - Date and Time Seen Date: 09/13/18 Time: 09:50 Subjective Narrative: Patient much more comfortable today than she was previously. Cough unchanged but she feels like she is not coughing up as much and she has been afebrile with vital signs stable. No acute events overnight. Objective - Review of Systems Generalized/Overall Review: Denies: Weakness, Chills, Fever EENTM: Denies: Nose Congestion, Throat Pain Respiratory: Reports: Cough. Denies: Shortness of Breath Cardiac: Denies: Chest Pain, Palpitations Abdominal: Denies: Nausea, Vomiting, Abdominal Pain Genitourinary Symptoms: Reports: No Symptoms Reported Musculoskeletal Complaints: Reports: Joint Pain - Right knee pain Neurological: Reports: No Symptoms Reported Skin: Reports: No Symptoms Reported Endocrine: Reports: No Symptoms Reported - Vitals Vitals: Last Vital Signs Temp 36.5 C 09/13/18 06:37 Pulse 83 09/13/18 09:05 Resp 18 09/13/18 09:05 BP 156/88 H 09/13/18 08:24 Pulse Ox 97 09/13/18 09:06 - Exam Constitutional: Present: Alert, Oriented x3, Cooperative, No distress ENT Exam: Present: hearing grossly normal. Absent: nasal drainage, pharyngeal erythema Neck: Present: non-tender, supple Respiratory: Present: no respiratory distress, no accessory muscle use, rhonchi - Bilateral lower bases Cardiovascular/Chest: Present: normal peripheral pulses, regular rate, rhythm, no murmur Abdomen: Present: Normal bowel sounds, soft, nontender /Rectal: Present: Exam deferred Extremity: Present: other - Venous stasis changes bilateral lower extremities up to mid min. Skin Exam: Present: normal color, warm/dry Appearance: Present: disheveled, impaired insight Eye contact: Present: cooperative, good eye contact Thoughts: Present: normal mood /affect Assessment/Plan Plan Narrative: Patient currently not in any distress. Her vital signs are stable. Maintaining good saturation on 3 L. Continue Levaquin. PT ordered. Will order incentive spirometry. Home medications restarted. SCDs to be used while in bed. patient on a consistent carb diet as that is what she was placed on by the ER though I do not see any diabetic medications in her chart. Mentation much more clear today, patient much more compliant with answering questions though there is a lot she does not know. Again unsure as to why she is on Percocet and tramadol, will continue to hold these medications for the time being. will discuss them with her and family when they are available. Tylenol as needed for aches and pains. Nurses will call with any questions or concerns. Likely back to the [facility] tomorrow morning. - Problems/Diagnosis (1) Pneumonia Problem: Acute Qualifiers: (2) COPD (chronic obstructive pulmonary disease) Problem: Chronic Qualifiers: COPD type: unspecified COPD Qualified Code(s): J44.9 - Chronic obstructive pulmonary disease, unspecified (3) Dependence on continuous supplemental oxygen Problem: Chronic (4) Morbid obesity with BMI of 50.0-59.9, adult Problem: Chronic (5) Hypertension Problem: Chronic Qualifiers: Hypertension type: essential hypertension Qualified Code(s): I10 - Essential (primary) hypertension (6) Right knee pain Problem: Acute (7) Venous stasis dermatitis of both lower extremities Problem: Chronic
[2018-09-13 11:52] LABS: Hematocrit 37.1 % (37.0-47.0); Hemoglobin 11.2 gm/dL (12.5-16.0); Mean Cell Volume 93.7 fl (78-100); Mean Corpuscular Hemoglobin 28.3 pg (27-31); Mean Corpuscular Hgb Conc 30.2 g/dl (32-36); Mean Platelet Volume 9.5 fl (8-12.5); Neutrophil # 7.4 K/mm3 (1.3-6.0); Neutrophil % 74.2 % (42-75.0); Platelet Count 278 K/mm3 (150-450); Red Blood Count 3.96 M/mm3 (4.2-5.4); Red Cell Distribution Width 12.5 % (11.5-14.0)
[2018-09-13 11:57] LABS: Anion Gap 5.5 mmol/L (6.8-13.8); BUN/Creatinine Ratio 13.8 (9.0-21.6); Calcium * 10.4 mg/dL (7.9-10.9); Estimated Creat Clear 73.1; Potassium 4.5 mmol/L (3.4-4.6)
[2018-09-13] MEDS: guaiFENesin/DEXTROMETHORPHAN 118 ML BTL PO PRN (12:05)
[2018-09-13] MEDS: AMITRIPTYLINE HCL 10 MG TABLET PO SCH (20:10)
[2018-09-13] MEDS: LEVOFLOXACIN IN DEXTROSE 5 % 500 MG/100 ML BAG IV SCH (20:10)
[2018-09-14] MEDS: guaiFENesin/DEXTROMETHORPHAN 118 ML BTL PO PRN (01:32)
[2018-09-14] MEDS: IBUPROFEN 600 MG TABLET PO PRN (01:46)
[2018-09-14] MEDS: ACETAMINOPHEN 325 MG TABLET PO PRN ×2 (02:23→06:42)
[2018-09-14] MEDS: BUDESONIDE 0.5 MG/2 ML VIAL.NEB IH SCH (07:19)
[2018-09-14] MEDS: PANTOPRAZOLE SODIUM 40 MG TABLET.EC PO SCH (08:14)
[2018-09-14] MEDS: ESCITALOPRAM OXALATE 10 MG TAB PO SCH (08:14)
[2018-09-14] MEDS: LORATADINE 10 MG TABLET PO SCH (08:14)
[2018-09-14] MEDS: METOPROLOL TARTRATE 25 MG TABLET PO SCH (08:14)
[2018-09-14] MEDS: GABAPENTIN 300 MG CAPSULE PO SCH (08:14)
[2018-09-14] MEDS: TOLTERODINE TARTRATE 2 MG CAPSULE PO SCH (08:14)
[2018-09-14] MEDS: FUROSEMIDE 40 MG TABLET PO SCH (08:14)
[2018-09-14] MEDS: FLUTICASONE PROPIONATE 120 SPRAY INHALER NS SCH (08:14)
[2018-09-14] MEDS: ASPIRIN 81 MG TABLET.DR PO SCH (08:14)
--- NOTE | 2018-09-14 11:11 | DS ---
(1) Pneumonia Problem: Acute Qualifiers: (2) UTI (urinary tract infection) Problem: Acute Description of Stay: Sandra Montgomery is a 78 yo female that was admitted due to altered mental status, leukocytosis, and pneumonia on chest xray. She was initially started on zosyn and levaquin and then switched to just Levaquin. She improved and is back at her baseline. Urine culture today is growing >100k proteus and this may have contributed to her altered mental status as well as the pneumonia. Based on sensitivity levaquin will not work for UTI but will cover pneumonia. She needs 5 more days of oral levaquin. Based on sensitivity and allergies I will treat her UTI with 3 days of Invanz. Procedures Performed: none Results and Findings: Pending Mircobiology Results 09/11/18 22:40 Blood Blood Culture - Preliminary NO GROWTH AFTER 48 HOURS 09/11/18 22:20 Blood Blood Culture - Preliminary NO GROWTH AFTER 48 HOURS Lab Pending Results 09/11/18 22:17: WBC 13.6 H, RBC 4.02 L, Hgb 11.4 L, Hct 37.9, MCV 94.3, MCH 28.4, MCHC 30.1 L, RDW 13.1, Plt Count 253, MPV 9.6, Neutrophils % (Manual) 68, Lymphocytes % (Manual) 14 L, Monocytes % (Manual) 16 H, Eosinophils % (Manual) 2, Neutrophils # (Manual) 9.2 H, Lymphocytes # (Manual) 1.9, Monocytes # (Manual) 2.2 H, Eosinophils # (Manual) 0.3, Platelet Estimate Normal, Hypochromasia 1+, Stomatocytes 1+ 09/11/18 22:20: Sodium 134, Plasma Sodium 134, Potassium 4.4, Chloride 93 L, Carbon Dioxide 36.4 H, Anion Gap 9.0, BUN 11 D, Creatinine 0.67, Est GFR (Non- Af Amer) 91, BUN/Creatinine Ratio 16.4, Random Glucose 114 H, Calcium 10.3, Calcium Adj for Albumin 10.6 H, Total Bilirubin 0.8, AST 17, ALT 20, Alkaline Phosphatase 93, Troponin I Less than 0.017, B-Natriuretic Peptide 290, Total Protein 7.0, Albumin 3.2 L 09/11/18 22:40: Lactic Acid, Venous 0.4 09/11/18 22:45: Influenza Type A Ag Negative, Influenza Type B Ag Negative 09/11/18 23:21: Urine Color Yellow, Urine Appearance Slightly cloudy, Urine pH 6.0, Ur Specific [place] 1.025, Urine Protein Negative, Urine Glucose (UA) Negative, Urine Ketones Negative, Urine Blood 25 H, Urine Nitrate Negative, Urine Bilirubin Negative, Urine Urobilinogen Normal, Ur Leukocyte Esterase Negative, Urine RBC None seen, Urine WBC 5-10 H, Ur Epithelial Cells Trace, Urine Bacteria None seen, Urine Culture Comments Culture to follow 09/13/18 11:46: WBC 10.0 D, RBC 3.96 L, Hgb 11.2 L, Hct 37.1, MCV 93.7, MCH 28.3, MCHC 30.2 L, RDW 12.5, Plt Count 278, MPV 9.5, Immature Gran % (Auto) 0.90 H, Immature Gran # (Auto) 0.09 H, Neutrophils % 74.2, Lymphocytes % 12.3 L, Monocytes % 11.4 H, Eosinophils % 0.8, Basophils % 0.4, Nucleated RBC % 0.0, Neutrophils # 7.4 H, Lymphocytes # 1.23 L, Monocytes # 1.1 H, Eosinophils # 0.1, Absolute Basophils 0.0 09/13/18 11:46: Sodium 130 L, Plasma Sodium 130, Potassium 4.5, Chloride 90 L, Carbon Dioxide 39.0 H, Anion Gap 5.5 L, BUN 8, Creatinine 0.58, Est GFR (Non-Af Amer) 107, BUN/Creatinine Ratio 13.8, Random Glucose 102, Calcium 10.4 Discharge Location: [facility] Disposition: SNF Condition: Fair Level of Care: SNF Discharge Activity: Activity as tolerated Discharge Diet: Low salt Correction Therapy: Physicial Therapy, Occupation Therapy Referrals: Heather Martinez ARNP [D[employer]ender] - Problem Oriented Discharge Instructions to Patient/Family: Community-Acquired Pneumonia, Adult, [id number], Urinary Tract Infection, Adult, [id number] Prescriptions (Any new or edited meds): Ertapenem Sodium [Invanz (Ertapenem)] 1,000 mg IM DAILY #3 vial Levofloxacin [Levaquin] 500 mg PO DAILY #5 tab Complete Home Medications List: Complete Home Medication List: acetaminophen 325 mg tablet 650 mg PO Q4H PRN tab 03/05/18 ascorbic acid (vitamin C) 500 mg tablet 500 mg PO DAILY 03/05/18 aspirin 81 mg tablet,delayed release 81 mg PO DAILY 03/05/18 bisacodyl 10 mg rectal suppository [address] DAILY PRN 03/05/18 calcium carbonate 200 mg calcium (500 mg) chewable tablet 500 mg PO QID PRN tab 03/05/18 cholecalciferol (vitamin D3) 2,000 unit tablet 4,000 unit PO DAILY 03/05/18 cyanocobalamin (vit B-12) 500 mcg tablet 500 mcg PO DAILY 03/05/18 fluticasone 220 mcg/actuation HFA aerosol inhaler 2 puff IH BID 30 Days #12 g 03/05/18 gabapentin 300 mg capsule 300 mg PO TID 28 Days #84 cap 03/05/18 magnesium hydroxide 400 mg/5 mL oral suspension 30 ml PO DAILY PRN ml 03/05/18 metoprolol tartrate 25 mg tablet 25 mg PO BID 28 Days #56 tab 03/05/18 omeprazole 40 mg capsule,delayed release 40 mg PO DAILY 28 Days #28 cap 03/05/18 psyllium oral powder 2 tsp PO DAILY PRN 03/05/18 tolterodine 1 mg tablet 1 mg PO BID 14 Days #28 tab 03/05/18 tramadol 50 mg tablet 50 mg PO Q6H PRN 4 Days #16 tab 03/05/18 Loratadine 10 mg PO DAILY 05/10/18 amitriptyline 10 mg tablet 10 mg PO HS #13 tab 06/25/18 Furosemide [Lasix] 40 mg PO DAILY 28 Days #28 tab 07/27/18 fluticasone 50 mcg/actuation nasal spray,suspension 2 spray NATE DAILY #15.8 g 07/30/18 escitalopram 5 mg tablet 5 mg PO DAILY #30 tab 08/12/18 tramadol 50 mg tablet 50 mg PO DAILY #30 tab 09/06/18 dextromethorphan-guaifenesin 5 mg-100 mg/5 mL oral liquid 10 ml PO Q8H PRN #180 ml 09/09/18 oxyCODONE HCL/ACETAMINOPHEN [Percocet 2.5-325 mg Tablet] 1 tab PO HS PRN 09/11/18 Iron Aspgly,Ps/C/Succinic Acid [Ferrex 150 Plus Capsule] 1 ea PO DAILY 09/12/18 Levalbuterol Tartrate [Xopenex Hfa] 90 mcg INHALATION Q4H PRN 09/12/18 Ertapenem Sodium [Invanz (Ertapenem)] 1,000 mg IM DAILY #3 vial 09/14/18 Levofloxacin [Levaquin] 500 mg PO DAILY #5 tab 09/14/18
[2018-09-14 14:53] VITALS: BP 165/97
== END 2018-09-14 13:30 | DRG 194 ==
LOC: ER 22:01 → MS 23:43
PROVIDERS: ADMIT Family Medicine; ATTEND Family Medicine
CPT/HCPCS: 36415; 71010; 71045; 80048; 80053; 81001; 83519; 83605; 83880; 84484; 85025; 87040; 87070; 87077; 87081; 87086; 87186; 87205; 87400; 87449; 93005; 94640; 94660; 94664; 99285; J2405

== ENCOUNTER 2019-07-26 17:29 | Inpatient (IN) ==
[2019-07-26] MEDS ORDERED: ONDANSETRON HCL/PF 2 MG/ML VIAL ONE (17:37)
[2019-07-26] MEDS ORDERED: ACETAMINOPHEN 1,000 MG/100 ML BTL IV ONE (17:45)
[2019-07-26] MEDS ORDERED: ONDANSETRON HCL/PF 2 MG/ML VIAL IV ONE (17:45)
[2019-07-26] MEDS ORDERED: FUROSEMIDE 10 MG/ML VIAL IV ONE (17:48)
[2019-07-26 18:25] LABS: Hematocrit 39.1 % (37.0-47.0); Hemoglobin 11.9 gm/dL (12.5-16.0); Mean Cell Volume 92.4 fl (78-100); Mean Corpuscular Hemoglobin 28.1 pg (27-31); Mean Corpuscular Hgb Conc 30.4 g/dl (32-36); Mean Platelet Volume 9.6 fl (8-12.5); Platelet Count 309 K/mm3 (150-450); Red Blood Count 4.23 M/mm3 (4.2-5.4); Red Cell Distribution Width 12.9 % (11.5-14.0); White Blood Count 23.2 K/mm3 (4.0-10.5)
[2019-07-26 18:26] LABS: Total Cells Counted 100
[2019-07-26 18:39] LABS: ALT 11 U/L (19-67); AST 12 U/L (0-48); Albumin * 3.4 gm/dl (3.4-5.0); Alkaline Phosphatase * 68 U/L (50-170); Anion Gap 8.4 mmol/L (6.8-13.8); BNP * 236 pg/mL (5-550); BUN/Creatinine Ratio 18.3 (9.0-21.6); Bilirubin, Total 0.8 mg/dL (0.0-1.1); Blood Urea Nitrogen 11 mg/dL (3-23); CRP 2.7 mg/dL (0.0-0.9); Ca. Corrected For Albumin 10.4 mg/dL (8.4-10.2); Calcium * 10.2 mg/dL (7.9-10.9); Carbon Dioxide 35.1 mmol/L (24-32.6); Chloride 98 mmol/L (97-106); Glucose * 120 mg/dL (70-110); Potassium 3.5 mmol/L (3.4-4.6); Sodium 138 mmol/L (132-142); Total Protein 7.1 gm/dL (6.2-8.2); Troponin I Less than 0.017 ng/mL (0.00-0.10)
[2019-07-26 18:44] LABS: Band 2 % (0-2.0); Lymphocyte 4 % (20-51); Monocyte 10 % (0-9); Neutrophil 84 % (42-75); Neutrophil # 19.5 K/mm3 (1.3-6.0); Platelet Estimate Normal (NORMAL); RBC Morphology Normal (NORMAL)
--- NOTE | 2019-07-26 19:02 | ERNOTE ---
Dyspnea - Date Date of Service: 07/26/19 - General Presenting Symptoms: shortness of breath, difficulty of breathing, wheezing Time Seen by Provider: 07/26/19 17:30 Source: patient, EMS Exam Limitations: clinical condition - Immun/Allergies/Home Medications Immunizations: IMMUNIZATION HX Immunizations Up to Date Yes History of Influenza Vaccine Yes Hx Pneumococcal Vaccination Yes Allergies/Adverse Reactions: Allergies cephalexin Allergy (Severe, Verified 07/26/19 17:41) RASH albuterol Allergy (Verified 07/26/19 17:41) unknown cefdinir Allergy (Verified 07/26/19 17:41) unknown Sulfa (Sulfonamide Antibiotics) Allergy (Verified 07/26/19 17:41) unknown Home Medications: HOME MEDICATIONS acetaminophen 325 mg tablet 650 mg PO Q4H PRN tab 03/05/18 [Last Taken 04/30/19] aspirin 81 mg tablet,delayed release 81 mg PO DAILY 03/05/18 [Last Taken 05/02/19] gabapentin 300 mg capsule 300 mg PO TID 28 Days #84 cap 03/05/18 [Last Taken 05/02/19] magnesium hydroxide 400 mg/5 mL oral suspension 30 ml PO DAILY PRN ml 03/05/18 [Last Taken 09/11/18] metoprolol tartrate 25 mg tablet 25 mg PO BID 28 Days #56 tab 03/05/18 [Last Taken 05/02/19] tolterodine 1 mg tablet 1 mg PO BID 14 Days #28 tab 03/05/18 [Last Taken 05/02/19] tramadol 50 mg tablet 50 mg PO Q6H PRN 4 Days #16 tab 03/05/18 [Last Taken 04/30/19] Loratadine 10 mg PO DAILY 05/10/18 [Last Taken 05/02/19] Furosemide [Lasix] 40 mg PO DAILY 28 Days #28 tab 07/27/18 [Last Taken 05/02/19] fluticasone propionate 50 mcg/actuation nasal spray,suspension 2 spray NATE DAILY #15.8 g 07/30/18 [Last Taken 05/02/19] tramadol 50 mg tablet 50 mg PO DAILY #30 tab 09/06/18 [Last Taken 05/02/19] Levalbuterol Tartrate [Xopenex Hfa] 45 mcg INHALATION Q4H PRN 09/12/18 [Last Taken Unknown] polysaccharide iron complex 150 mg iron capsule 150 mg PO DAILY 09/22/18 [Last Taken 05/02/19] escitalopram oxalate 10 mg tablet 10 mg PO DAILY #30 tab 02/03/19 [Last Taken 05/02/19] Cholecalciferol (Vitamin D3) [Vitamin D] 4,000 unit PO DAILY 04/09/19 [Last Taken 05/02/19] Cyanocobalamin (Vitamin B-12) [Vitamin B-12] 500 mcg SUBLINGUAL DAILY 04/09/19 [Last Taken 05/02/19] Dextromethorphan Polistirex [Delsym] 30 mg PO Q12H PRN 04/09/19 [Last Taken Unknown] Eucalyptus/Menthol [Sm Cough Drops] 1 ea MM PRN PRN 04/09/19 [Last Taken Unknown] Ipratropium/Albuterol Sulfate [Iprat-Albut 0.5-3(2.5) mg/3 ml] 3 ml INHALATION Q4H PRN 04/09/19 [Last Taken Unknown] Psyllium Husk/Aspartame [Metamucil Sugar-Free Powder] 2 tbs PO DAILY PRN 04/09/19 [Last Taken Unknown] Sucralfate [Carafate Suspension] 1 g PO ACHS #120 udc 04/09/19 [Last Taken 05/02/19] Omeprazole 40 mg PO DAILY 05/02/19 [Last Taken 05/02/19] Vitamin C 500 mg PO DAILY 05/02/19 [Last Taken 05/02/19] oxycodone-acetaminophen 2.5 mg-325 mg tablet 1 tab PO HS #30 tab 06/07/19 [Last Taken Unknown] Glycopyrrolate/Formoterol Fum [Bevespi Aerosphere Inhaler] 2 puff INHALATION BID 06/29/19 [Last Taken Unknown] - History of Present Illness Narrative: patient at skilled nursing noted to have dyspnea and fever, known hx of chf and copd Severity: moderate Treatment OFFICE MACHINE SERVICER: paramedics Initiating event: Reports: upper resp illness Frequency of episodes: Reports: frequent episodes Modifying Factors - (Improves): Reports: oxygen Modifying Factors (Worsens): Reports: activity Associated Symptoms-Dyspnea: Reports: fever/chills, sweating, cough, wheezing, leg/calf pain, ankle/leg swelling, lightheadedness Review of Systems - Review of Systems Constitutional: Present: See HPI, weakness, fatigue, malaise EYE: Present: no symptoms reported ENT: Present: no symptoms reported Respiratory: Present: See HPI, shortness of breath, cough, wheezing Cardiology: Present: no symptoms reported Gastrointestinal/Abdominal: Present: no symptoms reported Genitourinary: Present: no symptoms reported Musculoskeletal: Present: no symptoms reported Skin: Present: no symptoms reported Neurological: Present: no symptoms reported, weakness Endocrine: Present: no symptoms reported Hematologic/Lymphatic: Present: no symptoms reported Psych: Present: no symptoms reported All Other Systems: All systems neg except as marked Medical History (Last Reviewed 07/26/19 @ 18:57 by Johnna Galvez RN) Osteoarthritis (arthritis due to wear and tear of joints) (Chronic) Depression (Acute) Bilateral bunions Bilateral knee pain Onset Date: Unknown Bilateral lower extremity edema COPD (chronic obstructive pulmonary disease) Chronic respiratory failure, unspecified whether with hypoxia or hypercapnia Dependence on supplemental oxygen Essential (primary) hypertension Flat feet, bilateral Gastro-esophageal reflux disease without esophagitis Hx of breast lump Hypothyroidism, unspecified Iron deficiency anemia, unspecified Major depressive disorder with single episode Morbid (severe) obesity due to excess calories Morbid (severe) obesity with alveolar hypoventilation Muscle weakness (generalized) Onychomycosis Other abnormalities of gait and mobility Other forms of dyspnea Other sleep apnea Pain in unspecified knee Peripheral vascular disease, unspecified Polyp of colon Toe pain, bilateral Unspecified cataract Vitamin B12 deficiency anemia due to intrinsic factor deficiency Vitamin D deficiency, unspecified Surgical History: Surgical History (Last Reviewed 07/26/19 @ 18:57 by Johnna Galvez RN) Hx laparoscopic cholecystectomy Hx of breast lump removal Hx of hernia repair Hx of hysterectomy Hx of total knee replacement Family History: Family History (Last Reviewed 07/26/19 @ 18:57 by Johnna Galvez RN) Mother Cancer Father Hypertension Other No pertinent family history Social History: (Last Reviewed 07/26/19 @ 18:57 by Johnna Galvez RN) Social History: skilled nursing: Yes Marital status: / current occupational status: retired Highest education level completed: high school graduate Tobacco: Smoking Status: Former smoker Alcohol: alcohol intake: never Substance Use: substance use type: does not use Dietary Habits: caffeine: Yes Type: coffee Physical Exam - Physical Exam General Appearance: Present: moderate distress, anxious Head Exam: Present: normal inspection, no evidence of injury Eye Exam: Normal inspection: bilateral, PERRL: bilateral, EOMI: bilateral Ears, Nose, Throat: Present: normal ENT inspection, normal pharynx Neck: Present: normal inspection, nontender Respiratory: Present: crackles, rales, rhonchi Cardiovascular/Chest: Present: tachycardia Gastrointestinal/Abdominal: Present: normal bowel sounds, nontender, nondistended, soft, no organomegaly Back Exam: Present: normal inspection, normal range of motion, no CVA tenderness, no vertebral tenderness Extremity Exam: Present: decreased range of motion, pedal edema, calf tenderness Neurological Exam: Present: disoriented to person, disoriented to time, disoriented to place Skin Exam: Present: normal color, warm/dry Lymphatic Exam: Present: no adenopathy Progress - Date and Time Seen: Date and Time: 07/26/19 20:17 patient unchanged case discussed with dr banegas, amado for admission, - Results and Orders Patient's Lab Results:: I have reviewed the patient's lab results. - Vital Signs Patient's Vital Signs:: I have reviewed the patient's vital signs. Vital Signs: Vital Signs 07/26/19 17:29 07/26/19 17:50 07/26/19 17:59 Temperature 39.3 C H Pulse Rate 115 H 113 H 113 H Respiratory Rate 29 H Blood Pressure 139/70 130/62 O2 Sat by Pulse Oximetry 94 07/26/19 18:15 Temperature Pulse Rate 113 H Respiratory Rate 25 H Blood Pressure 115/60 O2 Sat by Pulse Oximetry 96 - EKG EKG #1 EKG: NSR - X-Ray X-Ray #1 X-Ray: chest Interpretation: Interp. by me - pneumonia - Progress/Reassessment Chief Complaint: Dyspnea Progress:: Unchanged - Transfer of Care Expected Disposition: Admit Plan - Plan Plan: to admit to hospital loida britton dnr Departure Clinical Impression: COPD (chronic obstructive pulmonary disease), Pneumonia - Departure Disposition: Short Term Hospital Inpatient Condition: Serious
[2019-07-26 19:04] LABS: Urine Bilirubin Negative (NEGATIVE); Urine Ketone Negative (NEGATIVE); Urine Nitrite Negative (NEGATIVE); Urine Protein 30 mg/dL (NEGATIVE); Urine Specific Gravity 1.015 SP.GR. (1.005-1.010); Urine Urobilinogen Normal (NORMAL)
[2019-07-26 19:05] LABS: Urine Appearance Clear (CLEAR); Urine Bacteria None Seen; Urine Blood 5 /ul (NEGATIVE); Urine Color Pale Yellow; Urine RBC 0-5 /hpf (0-5); Urine WBC 0-5 /hpf (0-5)
[2019-07-26] MEDS ORDERED: PIPERACILLIN SODIUM/TAZOBACTAM 3.375 GM in DEXTROSE 5 % IN WATER 100 ML IV ONE ×2 (19:23)
[2019-07-26] MEDS ORDERED: LEVOFLOXACIN IN DEXTROSE 5 % 750 MG/150 ML BAG IV ONE ×2 (19:24→20:24)
[2019-07-26] MEDS ORDERED: LEVOFLOXACIN 500 MG TABLET PO ONE (20:24)
[2019-07-26] MEDS ORDERED: PIPERACILLIN SODIUM/TAZOBACTAM 3.375 GM in DEXTROSE 5 % IN WATER 100 ML IV SCH ×2 (20:30)
--- NOTE | 2019-07-26 20:41 | HP ---
Chief Complaint - Chief Complaint Date of Service: 07/26/19 Time of Service: 20:40 Chief Complaint: Dyspnea History of Present Illness: 79-year-old female a resident of [facility] presents to [facility] with concerns of dyspnea progressively getting worse for 1 day. Associated with a productive cough and one episode of nonbloody nonbilious emesis prior to arrival to the emergency department. Patient denies any chest pain. Patient denies any exposure to known present corvette 19. Patient denies any recent travel. Patient's past medical history is significant for oxygen dependent COPD, hype rtension, GERD, GERD, peripheral vascular disease, venous stasis of both lower extremities and morbid obesity. On arrival to the ER patient is febrile, tachycardic and tachypneic. Received Tylenol 1 g and fever resolved. BP Pressure stable and mean arterial pressure is greater than 65. Currently on 3 L of oxygen and saturating at 96% on room air. Met criteria for both covid-19 screening and and sepsis criteria. Sepsis protocol initiated accordingly. Patient not fluid resuscitated due to lactic being less than 2 and patient being fluid overloaded. Complete viral panel completed and unremarkable. Covid-19 testing completed, results pending. Labs are significant for leukocytosis of 23,000 with a left shift, normocytic anemia, hyperglycemia, low serum levels of amylase and lipase. Latic less than 2. Cardiac panel is unremarkable. EKG consistent with sinus tachycardia extreme left axis deviation possible and anterior SD however due to tachycardia hard to appreciate changes, Q waves present most likely could be an old SD. however in comparison to EKG completed in March 2019 there are changes of possible anterior SD. ABG consistent with respiratory acidosis with appropr iate metabolic compensation. Blood and urine cultures pending. Chest X-ray completed significant for bibasilar heterogeneous opacities may represent subsegmental atelectasis due to low lung volumes. Superimposed infection not excluded. Due to leukocytosis and superimposed infection that cannot be excluded, patient started on IV vancomycin and Zosyn. Patient also received a dose of Lasix IV. On physical examination patient appears fluid overloaded however BNP is 236. On physical examination patient is drowsy, however arousable with minimal sternal rub. Patient is patient is tachypneic with shallow labored breathing with use of accessory muscles with visible retraction of abdominal muscles. Currently is oxygen. Auscultation of the lungs is consistent with diffuse crackles, distant wheezing, and rhonchi more prominent in left lower lobe. Patient is alert and oriented x3. Advised patient we will be admitting her to [facility], should be on airborne precautions and in isolation till Covid-199 results are available. We will keep her updated. Medical History (Last Reviewed 07/26/19 @ 18:57 by Johnna Galvez RN) Osteoarthritis (arthritis due to wear and tear of joints) (Chronic) Depression (Acute) Bilateral bunions Bilateral knee pain Onset Date: Unknown Bilateral lower extremity edema COPD (chronic obstructive pulmonary disease) Chronic respiratory failure, unspecified whether with hypoxia or hypercapnia Dependence on supplemental oxygen Essential (primary) hypertension Flat feet, bilateral Gastro-esophageal reflux disease without esophagitis Hx of breast lump Hypothyroidism, unspecified Iron deficiency anemia, unspecified Major depressive disorder with single episode Morbid (severe) obesity due to excess calories Morbid (severe) obesity with alveolar hypoventilation Muscle weakness (generalized) Onychomycosis Other abnormalities of gait and mobility Other forms of dyspnea Other sleep apnea Pain in unspecified knee Peripheral vascular disease, unspecified Polyp of colon Toe pain, bilateral Unspecified cataract Vitamin B12 deficiency anemia due to intrinsic factor deficiency Vitamin D deficiency, unspecified Surgical History: Surgical History (Last Reviewed 07/26/19 @ 18:57 by Johnna Galvez RN) Hx laparoscopic cholecystectomy Hx of breast lump removal Hx of hernia repair Hx of hysterectomy Hx of total knee replacement Family History: Family History (Last Reviewed 07/26/19 @ 18:57 by Johnna Galvez RN) Mother Cancer Father Hypertension Other No pertinent family history Social History: (Last Reviewed 07/26/19 @ 18:57 by Johnna Galvez RN) Social History: [place] [facility] Yes Marital status: / current occupational status: retired Highest education level completed: high school graduate Tobacco: Smoking Status: Former smoker Alcohol: alcohol intake: never Substance Use: substance use type: does not use Dietary Habits: caffeine: Yes Type: coffee Review Of Systems (GEN) - Review of Systems Generalized/Overall Review: Present: Weakness, Chills, Fever, Malaise, Diaphoresis, Fatigue EENTM: Present: No Symptoms Reported Respiratory: Present: Cough, Shortness of Breath, Orthopnea. Absent: Stridor, Wheezing Cardiac: Present: Edema. Absent: Chest Pain, Palpitations, Syncope Abdominal: Present: Nausea, Vomiting. Absent: Abdominal Pain, Constipation Genitourinary: Present: No Symptoms Reported Musculoskeletal: Present: Joint Swelling - Both bilateral knees and ankles. Absent: Joint Pain, Back Pain Neurological: Present: Other - Drowsy Skin: Present: No Symptoms Reported Endocrine: Present: No Symptoms Reported Immunizations: IMMUNIZATION HX Immunizations Up to Date Yes History of Influenza Vaccine Yes Hx Pneumococcal Vaccination Yes Allergies/Adverse Reactions: Allergies Allergy/AdvReac Type Severity Reaction Status Date / Time cephalexin Allergy Severe RASH Verified 07/26/19 17:41 albuterol Allergy unknown Verified 07/26/19 17:41 cefdinir Allergy unknown Verified 07/26/19 17:41 Sulfa (Sulfonamide Allergy unknown Verified 07/26/19 17:41 Antibiotics) Home Medications: HOME MEDICATIONS acetaminophen 325 mg tablet 650 mg PO Q4H PRN tab 03/05/18 [Last Taken 04/30/19] aspirin 81 mg tablet,delayed release 81 mg PO DAILY 03/05/18 [Last Taken 05/02/19] gabapentin 300 mg capsule 300 mg PO TID 28 Days #84 cap 03/05/18 [Last Taken 05/02/19] magnesium hydroxide 400 mg/5 mL oral suspension 30 ml PO DAILY PRN ml 03/05/18 [Last Taken 09/11/18] metoprolol tartrate 25 mg tablet 25 mg PO BID 28 Days #56 tab 03/05/18 [Last Taken 05/02/19] tolterodine 1 mg tablet 1 mg PO BID 14 Days #28 tab 03/05/18 [Last Taken 05/02/19] tramadol 50 mg tablet 50 mg PO Q6H PRN 4 Days #16 tab 03/05/18 [Last Taken 04/30/19] Loratadine 10 mg PO DAILY 05/10/18 [Last Taken 05/02/19] Furosemide [Lasix] 40 mg PO DAILY 28 Days #28 tab 07/27/18 [Last Taken 05/02/19] fluticasone propionate 50 mcg/actuation nasal spray,suspension 2 spray NATE DAILY #15.8 g 07/30/18 [Last Taken 05/02/19] tramadol 50 mg tablet 50 mg PO DAILY #30 tab 09/06/18 [Last Taken 05/02/19] Levalbuterol Tartrate [Xopenex Hfa] 45 mcg INHALATION Q4H PRN 09/12/18 [Last Taken Unknown] polysaccharide iron complex 150 mg iron capsule 150 mg PO DAILY 09/22/18 [Last Taken 05/02/19] escitalopram oxalate 10 mg tablet 10 mg PO DAILY #30 tab 02/03/19 [Last Taken 05/02/19] Cholecalciferol (Vitamin D3) [Vitamin D] 4,000 unit PO DAILY 04/09/19 [Last Taken 05/02/19] Cyanocobalamin (Vitamin B-12) [Vitamin B-12] 500 mcg SUBLINGUAL DAILY 04/09/19 [Last Taken 05/02/19] Dextromethorphan Polistirex [Delsym] 30 mg PO Q12H PRN 04/09/19 [Last Taken Unknown] Eucalyptus/Menthol [Sm Cough Drops] 1 ea MM PRN PRN 04/09/19 [Last Taken Unknown] Ipratropium/Albuterol Sulfate [Iprat-Albut 0.5-3(2.5) mg/3 ml] 3 ml INHALATION Q4H PRN 04/09/19 [Last Taken Unknown] Psyllium Husk/Aspartame [Metamucil Sugar-Free Powder] 2 tbs PO DAILY PRN 04/09/19 [Last Taken Unknown] Sucralfate [Carafate Suspension] 1 g PO ACHS #120 udc 04/09/19 [Last Taken 05/02/19] Omeprazole 40 mg PO DAILY 05/02/19 [Last Taken 05/02/19] Vitamin C 500 mg PO DAILY 05/02/19 [Last Taken 05/02/19] oxycodone-acetaminophen 2.5 mg-325 mg tablet 1 tab PO HS #30 tab 06/07/19 [Last Taken Unknown] Glycopyrrolate/Formoterol Fum [Bevespi Aerosphere Inhaler] 2 puff INHALATION BID 06/29/19 [Last Taken Unknown] Exam - Exam Vital Signs: Vital Signs - Last Taken Temp 38.2 C H 07/26/19 19:44 Pulse 99 07/26/19 19:44 Resp 19 07/26/19 19:44 BP 96/53 07/26/19 19:44 Pulse Ox 97 07/26/19 19:44 Constitutional: Present: Alert, Oriented x3, Cooperative, Mild distress, Le thargic ENT Exam: Present: hearing grossly normal Eye Exam: bilateral eye: normal inspection, PERRL, EOMI Neck: Present: non-tender, full range of motion, supple, normal inspection Back Exam: Present: normal inspection, no CVA tenderness Respiratory: Present: chest non-tender, respiratory distress, accessory muscle use - Abdominal wall muscle retraction, crackles - Diffuse crackles, rhonchi - More prominent in the left lower lobe, wheezing - Diffuse and distant, hard to appreciate due to habitus, expiration (prolonged). Absent: No wheezing Cardiovascular/Chest: Present: normal peripheral pulses, JVD, tachycardia, diastolic murmur, other - Anasarca, edema Peripheral Pulses: dorsalis-pedis (R): 1+, dorsalis-pedis (L): 1+, radial (R): 1+, radial (L): 1+ Abdomen: Present: Normal bowel sounds, soft, nontender, nondistended, no rebound tenderness, obese, other - Hard to appreciate bowel sounds due to habitus, however distant bowel sounds appreciated in all 4 quadrants /Rectal: Present: Exam deferred, Other - Patient in an adult type Extremity: Present: lower extremity edema, slow capillary refill, swelling, other - Purple discoloration of bilateral upper thighs Skin Exam: Present: warm/dry Neurologic: Present: alert, oriented x 3, motor weakness, depressed affect, other - Unable to assess gait Appearance: Present: disheveled, other - Lethargic Eye contact: Present: decreased rate of speech - Due to lethargy Thoughts: Present: other - Unable to evaluate Diagnostic Studies: Abnormal Lab Results 07/26/19 07/26/19 07/26/19 Range/Units 18:15 18:15 18:20 WBC 23.2 H (4.0-10.5) K/mm3 Hgb 11.9 L (12.5-16.0) gm/dL MCHC 30.4 L (32-36) g/dl Neutrophils % (Manual) 84 H (42-75) % Lymphocytes % (Manual) 4 L (20-51) % Monocytes % (Manual) 10 H (0-9) % Neutrophils # (Manual) 19.5 H (1.3-6.0) K/mm3 Lymphocytes # (Manual) 0.9 L (1.5-3.5) k/mm3 Monocytes # (Manual) 2.3 H (0.0-1.0) k/mm3 pCO2 54.8 H (32.0-45.0) mmHg pO2 72.3 L (83.0-108.0) mmHg HCO3 31.3 H (21.0-28.0) mmol/L Total CO2 32.9 H (19.0-24.0) mmol/L Base Excess 4.8 H (-2.0-3.0) mmol/L ABG O2 Sat (Measured) 93.9 L (94.0-98.0) % Carbon Dioxide 35.1 H (24-32.6) mmol/L Random Glucose 120 H (70-110) mg/dL Calcium Adj for Albumin 10.4 H (8.4-10.2) mg/dL ALT 11 L (19-67) U/L C-Reactive Prot, Quant 2.7 H (0.0-0.9) mg/dL Urine pH (5.0-7.0) pH Urine Protein (NEGATIVE) mg/dL Urine Blood (NEGATIVE) /ul Ur Epithelial Cells (0-5) /hpf 07/26/19 Range/Units 18:59 WBC (4.0-10.5) K/mm3 Hgb (12.5-16.0) gm/dL MCHC (32-36) g/dl Neutrophils % (Manual) (42-75) % Lymphocytes % (Manual) (20-51) % Monocytes % (Manual) (0-9) % Neutrophils # (Manual) (1.3-6.0) K/mm3 Lymphocytes # (Manual) (1.5-3.5) k/mm3 Monocytes # (Manual) (0.0-1.0) k/mm3 pCO2 (32.0-45.0) mmHg pO2 (83.0-108.0) mmHg HCO3 (21.0-28.0) mmol/L Total CO2 (19.0-24.0) mmol/L Base Excess (-2.0-3.0) mmol/L ABG O2 Sat (Measured) (94.0-98.0) % Carbon Dioxide (24-32.6) mmol/L Random Glucose (70-110) mg/dL Calcium Adj for Albumin (8.4-10.2) mg/dL ALT (19-67) U/L C-Reactive Prot, Quant (0.0-0.9) mg/dL Urine pH 8.0 H (5.0-7.0) pH Urine Protein 30 H (NEGATIVE) mg/dL Urine Blood 5 H (NEGATIVE) /ul Ur Epithelial Cells 5-10 H (0-5) /hpf Laboratory Results WBC 23.2 K/mm3 (4.0-10.5) H 07/26/19 18:15 RBC 4.23 M/mm3 (4.2-5.4) 07/26/19 18:15 Hgb 11.9 gm/dL (12.5-16.0) L 07/26/19 18:15 Hct 39.1 % (37.0-47.0) 07/26/19 18:15 MCV 92.4 fl (78-100) 07/26/19 18:15 MCH 28.1 pg (27-31) 07/26/19 18:15 MCHC 30.4 g/dl (32-36) L 07/26/19 18:15 RDW 12.9 % (11.5-14.0) 07/26/19 18:15 Plt Count 309 K/mm3 (150-450) 07/26/19 18:15 MPV 9.6 fl (8-12.5) 07/26/19 18:15 Neutrophils % (Manual) 84 % (42-75) H 07/26/19 18:15 Band Neuts % (Manual) 2 % (0-2.0) 07/26/19 18:15 Lymphocytes % (Manual) 4 % (20-51) L 07/26/19 18:15 Monocytes % (Manual) 10 % (0-9) H 07/26/19 18:15 Neutrophils # (Manual) 19.5 K/mm3 (1.3-6.0) H 07/26/19 18:15 Lymphocytes # (Manual) 0.9 k/mm3 (1.5-3.5) L 07/26/19 18:15 Monocytes # (Manual) 2.3 k/mm3 (0.0-1.0) H 07/26/19 18:15 Platelet Estimate Normal (NORMAL) 07/26/19 18:15 RBC Morphology Normal (NORMAL) 07/26/19 18:15 pCO2 54.8 mmHg (32.0-45.0) H 07/26/19 18:20 pO2 72.3 mmHg (83.0-108.0) L 07/26/19 18:20 HCO3 31.3 mmol/L (21.0-28.0) H 07/26/19 18:20 Total CO2 32.9 mmol/L (19.0-24.0) H 07/26/19 18:20 Base Excess 4.8 mmol/L (-2.0-3.0) H 07/26/19 18:20 ABG pH 7.37 (7.35-7.45) 07/26/19 18:20 ABG O2 Sat (Measured) 93.9 % (94.0-98.0) L 07/26/19 18:20 Sodium 138 mmol/L (132-142) 07/26/19 18:15 Plasma Sodium 138 mmol/L (130-142) 07/26/19 18:15 Potassium 3.5 mmol/L (3.4-4.6) 07/26/19 18:15 Chloride 98 mmol/L (97-106) 07/26/19 18:15 Carbon Dioxide 35.1 mmol/L (24-32.6) H 07/26/19 18:15 Anion Gap 8.4 mmol/L (6.8-13.8) 07/26/19 18:15 BUN 11 mg/dL (3-23) 07/26/19 18:15 Creatinine 0.60 mg/dL (0.4-1.4) 07/26/19 18:15 Est GFR (Non-Af Amer) 103 mL/min (60-130) 07/26/19 18:15 BUN/Creatinine Ratio 18.3 (9.0-21.6) 07/26/19 18:15 Random Glucose 120 mg/dL (70-110) H 07/26/19 18:15 Lactic Acid, Venous 1.7 mmol/L (0.4-2.0) 07/26/19 18:15 Calcium 10.2 mg/dL (7.9-10.9) 07/26/19 18:15 Calcium Adj for Albumin 10.4 mg/dL (8.4-10.2) H 07/26/19 18:15 Total Bilirubin 0.8 mg/dL (0.0-1.1) 07/26/19 18:15 AST 12 U/L (0-48) 07/26/19 18:15 ALT 11 U/L (19-67) L 07/26/19 18:15 Alkaline Phosphatase 68 U/L (50-170) 07/26/19 18:15 Troponin I Less than 0.017 ng/mL (0.00-0.10) 07/26/19 18:15 C-Reactive Prot, Quant 2.7 mg/dL (0.0-0.9) H 07/26/19 18:15 B-Natriuretic Peptide 236 pg/mL (5-550) 07/26/19 18:15 Total Protein 7.1 gm/dL (6.2-8.2) 07/26/19 18:15 Albumin 3.4 gm/dl (3.4-5.0) 07/26/19 18:15 Urine Color Pale yellow 07/26/19 18:59 Urine Appearance Clear (CLEAR) 07/26/19 18:59 Urine pH 8.0 pH (5.0-7.0) H 07/26/19 18:59 Ur Specific [place] 1.015 SP.GR. (1.005-1.010) 07/26/19 18:59 Urine Protein 30 mg/dL (NEGATIVE) H 07/26/19 18:59 Urine Glucose (UA) Negative mg/dL (NEGATIVE) 07/26/19 18:59 Urine Ketones Negative mg/dL (NEGATIVE) 07/26/19 18:59 Urine Blood 5 /ul (NEGATIVE) H 07/26/19 18:59 Urine Nitrate Negative (NEGATIVE) 07/26/19 18:59 Urine Bilirubin Negative mg/dl (NEGATIVE) 07/26/19 18:59 Prot Sulfosalicylic Acd 1+ mg/dL (0) 07/26/19 18:59 Urine Urobilinogen Normal EU/dl (NORMAL) 07/26/19 18:59 Ur Leukocyte Esterase Negative /ul (NEGATIVE) 07/26/19 18:59 Urine RBC 0-5 /hpf (0-5) 07/26/19 18:59 Urine WBC 0-5 /hpf (0-5) 07/26/19 18:59 Ur Epithelial Cells 5-10 /hpf (0-5) H 07/26/19 18:59 Urine Bacteria None seen (NONE) 07/26/19 18:59 Urine Culture Comments Culture to follow 07/26/19 18:59 Chlamy pneumoniae PCR Not detected (NotDetected) 07/26/19 18:15 Adenovirus (PCR) Not detected (NotDetected) 07/26/19 18:15 B. pertussis DNA (PCR) Not detected (NotDetected) 07/26/19 18:15 Coronavirus OC43 (PCR) Not detected (NotDetected) 07/26/19 18:15 Coronavirus HKU1 (PCR) Not detected (NotDetected) 07/26/19 18:15 Coronavirus 229E (PCR) Not detected (NotDetected) 07/26/19 18:15 Coronavirus NL63 (PCR) Not detected (NotDetected) 07/26/19 18:15 Human Metapneumovir PCR Not detected (NotDetected) 07/26/19 18:15 Influenza A (H1) PCR Not detected (NotDetected) 07/26/19 18:15 Influenza A (H1N1) PCR Not detected (NotDetected) 07/26/19 18:15 Influenza A (H3) PCR Not detected (NotDetected) 07/26/19 18:15 Influenza B (RT-PCR) Not detected (NotDetected) 07/26/19 18:15 M. pneumoniae (PCR) Not detected (NotDetected) 07/26/19 18:15 Parainfluenza 1 (PCR) Not detected (NotDetected) 07/26/19 18:15 Parainfluenza 2 (PCR) Not detected (NotDetected) 07/26/19 18:15 Parainfluenza 3 (PCR) Not detected (NotDetected) 07/26/19 18:15 Parainfluenza 4 (PCR) Not detected (NotDetected) 07/26/19 18:15 RSV (PCR) Not detected (NotDetected) 07/26/19 18:15 Rhinovirus (PCR) Not detected (NotDetected) 07/26/19 18:15 Group A Strep Rapid Negative (NEGATIVE) 07/26/19 18:24 Assessment/Plan - Narrative Narrative: Assessment/Plan 71-year-old female resident of [facility] admitted for sepsis with acute organ dysfunction of acute on chronic hypercapnic respite respiratory failure Sepsis acute organ dysfunction of hypercapnic acute respiratory failure -Initial lactic less than 2. -Not fluid resuscitated -Repeating lactic and will fluid resuscitate accordingly. -According to ideal body weight at 30 ml/kg adequate fluid resuscitation will be 2850 mL -Repeat CBC, CMP, CRP, LDH -Blood cultures and urine cultures pending Acute on chronic hypercapnic respiratory failure in the setting of oxygen dependent COPD-3 L via nasal cannula - Initial ABG consistent with acute respiratory acidosis with appropriate metabolic compensation -Due to due to acute distress, lethargy and use of accessory muscles whilst on oxygen upon first examination repeat ABG and consider BiPAP -Complete viral panel completed and unremarkable -COVID-19 nasopharyngeal swab completed, results pending -Airborne precautions, isolation till results are available -RT ordered for management of oxygen. -Solu-Medrol 125 mg IV x1 -Prednisone 40 mg 1 tablet in the morning for 5 days, Start Thursday07/27/19 -Breathing treatments be done aside and Perforomist twice daily -Specifically allergic to albuterol so no rescue inhaler but can tolerate performance -Spiriva daily -Guaifenesin as needed -Pulmonary rehab consulted appreciate recommendation Hospital acquired PNA -Due to meeting sepsis criteria patient on broad-spectrum antibiotics. -Patient on IV Levaquin 750 milligrams 24-hour and vancomycin 1.5 mg every 12 hours -Unable to administer cefepime due to allergy to cephalosporin -Sputum cultures not obtained prior to antibiotics being initiated, will go ahead and obtain sputum cultures. -Due to atelectasis will order incentive spirometry, to complete every hour while she is awake Anasarca- suspected -Physical examination concerning for anasarca, however BNP not consistent with history of CHF. Most likely anasarca is being misinterpreted for severe morbid obesity. -Received Lasix 60 mg IV x1 -No history of congestive heart failure on past medical history or prior echo -We will fluid resuscitate accordingly once we have repeat labs available. Fluid, electrolytes, nutrition: 2 L of normal saline bolus, maintenance IV fluid of normal saline at 125ml/hr to a total of 2850 mL. Heart healthy diet DVT prophylaxis: Lovenox 40 mg subcutaneous every 24 hours CODE STATUS: DNR/DNI Disposition - Will continue to monitor respiratory status, will consider BiPAP pending ABGs - Pending labs will fluid resuscitate appropriately - Place in airborne precaution and isolation till covert 19 results available - Once culture results are available we will narrow spectrum of antibiotics -Anticipate discharge to [facility] within 48 to 72 hours - Assessment/Plan (1) Sepsis Problem: Acute Qualifiers: Sepsis type: sepsis due to unspecified organism Sepsis acute organ dysfunction status: with acute organ dysfunction Acute respiratory failure type: with hypercapnia Severe sepsis shock status: without septic shock (2) Hypercapnic respiratory failure Problem: Acute Qualifiers: Chronicity: acute on chronic Qualified Code(s): J96.22 - Acute and chronic respiratory failure with hypercapnia (3) Hospital acquired PNA Problem: Acute (4) Anasarca Problem: Suspected
[2019-07-26] MEDS ORDERED: NORMAL SALINE 1,000 ML IV ONE (21:54)
[2019-07-26] MEDS ORDERED: NORMAL SALINE IV ONE (21:56)
[2019-07-26] MEDS ORDERED: ACETAMINOPHEN 325 MG TABLET PO PRN (21:56)
[2019-07-26] MEDS ORDERED: guaiFENesin 100 MG/5 ML SYRUP PO PRN (22:33)
[2019-07-26] MEDS ORDERED: METHYLPREDNISOLONE SOD SUCC/PF 125 MG/2 ML VIAL IV ONE (22:45)
[2019-07-26] MEDS ORDERED: MAGNESIUM HYDROXIDE 30 ML UDC PO PRN (22:46)
[2019-07-26] MEDS ORDERED: ALBUTEROL SULFATE/IPRATROPIUM 3 ML NEBU IH SCH (23:00)
[2019-07-26] MEDS ORDERED: PSYLLIUM SEED 1 PACKET PACKET PO PRN (23:58)
[2019-07-27 00:13] LABS: Hematocrit 38.3 % (37.0-47.0); Hemoglobin 11.5 gm/dL (12.5-16.0); Mean Cell Volume 93.4 fl (78-100); Mean Platelet Volume 9.8 fl (8-12.5); Platelet Count 292 K/mm3 (150-450); Red Cell Distribution Width 13.1 % (11.5-14.0)
[2019-07-27 00:20] LABS: Total Cells Counted 100
[2019-07-27 00:26] LABS: Prothrombin Time (Patient) 10.8 Seconds (9.1-10.7)
[2019-07-27 00:27] LABS: INR 1.09 INR (0.92-1.08)
[2019-07-27 00:35] LABS: Troponin I 0.021 ng/mL (0.00-0.10)
[2019-07-27 00:40] LABS: ALT 9 U/L (19-67); AST 12 U/L (0-48); Alkaline Phosphatase * 60 U/L (50-170); Anion Gap 5.9 mmol/L (6.8-13.8); BUN/Creatinine Ratio 19.4 (9.0-21.6); Bilirubin, Total 1.4 mg/dL (0.0-1.1); Blood Urea Nitrogen 14 mg/dL (3-23); CK Total * 35 U/L (0-259); CRP 8.4 mg/dL (0.0-0.9); Ca. Corrected For Albumin 10.8 mg/dL (8.4-10.2); Calcium * 10.3 mg/dL (7.9-10.9); Carbon Dioxide 37.9 mmol/L (24-32.6); Chloride 98 mmol/L (97-106); Glucose * 116 mg/dL (70-110); LD 118 U/L (81-234); Potassium 3.8 mmol/L (3.4-4.6); Sodium 138 mmol/L (132-142); Total Protein 6.5 gm/dL (6.2-8.2)
[2019-07-27 00:41] LABS: Band 20 % (0-2.0); Basophil 1 % (0-1); Immature Granulocyte 4 (0-1); Lymphocyte 1 % (20-51); Monocyte 7 % (0-9); Neutrophil 67 % (42-75); Neutrophil # 18.8 K/mm3 (1.3-6.0)
[2019-07-27 00:42] LABS: Hypochromia 1+; Toxic Granulation 2+
[2019-07-27] MEDS: VANCOMYCIN/WATER FOR INJ (PEG) 1.5 GM/300 ML BAG IV SCH ×3 (00:56→23:34)
[2019-07-27] MEDS: ASCORBIC ACID 500 MG TABLET PO SCH ×2 (01:03→10:11)
[2019-07-27] MEDS: ACETAMINOPHEN 325 MG TABLET PO SCH ×2 (01:04→20:34)
[2019-07-27] MEDS: oxyCODONE HCL 5 MG TABLET PO SCH ×2 (01:04→20:39)
[2019-07-27] MEDS: NORMAL SALINE 1,000 ML IV SCH ×2 (01:28→01:29)
[2019-07-27] MEDS ORDERED: METHYLPREDNISOLONE SOD SUCC/PF 125 MG/2 ML VIAL ONE (02:34)
[2019-07-27] MEDS: ENOXAPARIN SODIUM 40 MG/0.4 ML SYRG SC SCH ×2 (02:39→21:02)
[2019-07-27 06:32] LABS: Hematocrit 39.4 % (37.0-47.0); Hemoglobin 11.9 gm/dL (12.5-16.0); Mean Cell Volume 93.6 fl (78-100); Mean Corpuscular Hemoglobin 28.3 pg (27-31); Mean Corpuscular Hgb Conc 30.2 g/dl (32-36); Mean Platelet Volume 10.1 fl (8-12.5); Platelet Count 274 K/mm3 (150-450); Red Blood Count 4.21 M/mm3 (4.2-5.4); Red Cell Distribution Width 13.1 % (11.5-14.0); White Blood Count 26.1 K/mm3 (4.0-10.5)
[2019-07-27 06:47] LABS: Albumin * 3.1 gm/dl (3.4-5.0); Anion Gap 8.6 mmol/L (6.8-13.8); Bilirubin, Total 1.1 mg/dL (0.0-1.1); Ca. Corrected For Albumin 10.8 mg/dL (8.4-10.2); Calcium * 10.4 mg/dL (7.9-10.9); Carbon Dioxide 35.1 mmol/L (24-32.6); Potassium 3.7 mmol/L (3.4-4.6)
[2019-07-27] MEDS ORDERED: INSULIN LISPRO 100 UNITS/ML VIAL SC SCH (07:00)
[2019-07-27 07:06] LABS: Total Cells Counted 100
[2019-07-27 08:06] LABS: Band 11 % (0-2.0); Immature Granulocyte 2 (0-1); Lymphocyte 3 % (20-51); Monocyte 2 % (0-9); Neutrophil 82 % (42-75); Neutrophil # 21.4 K/mm3 (1.3-6.0); Platelet Estimate Normal (NORMAL)
[2019-07-27 08:26] LABS: Toxic Granulation Trace
[2019-07-27] MEDS ORDERED: FORMOTEROL FUMARATE 20 MCG/2 ML VIAL IH SCH (09:00)
[2019-07-27] MEDS ORDERED: BUDESONIDE 0.5 MG/2 ML VIAL.NEB IH SCH (09:00)
[2019-07-27] MEDS: LEVALBUTEROL HCL 1.25 MG/3 ML AMPUL IH SCH (09:09)
[2019-07-27] MEDS: SUCRALFATE 1 G/10 ML UDC PO SCH ×4 (10:04→20:30)
[2019-07-27] MEDS: PANTOPRAZOLE SODIUM 40 MG TABLET.EC PO SCH (10:05)
[2019-07-27] MEDS: GABAPENTIN 300 MG CAPSULE PO SCH ×3 (10:05→17:44)
[2019-07-27] MEDS: METOPROLOL TARTRATE 25 MG TABLET PO SCH ×2 (10:05→20:31)
[2019-07-27] MEDS: ASPIRIN 81 MG TABLET.DR PO SCH (10:05)
[2019-07-27] MEDS: FUROSEMIDE 40 MG TABLET PO SCH (10:06)
[2019-07-27] MEDS: ESCITALOPRAM OXALATE 10 MG TAB PO SCH (10:06)
[2019-07-27] MEDS: LORATADINE 10 MG TABLET PO SCH (10:06)
[2019-07-27] MEDS: predniSONE 20 MG TABLET PO SCH (10:08)
[2019-07-27] MEDS: TIOTROPIUM BROMIDE 5 CAP INHALER IH SCH (10:09)
[2019-07-27] MEDS: CHOLECALCIFEROL 1,000 UNIT CAPSULE PO SCH (10:11)
[2019-07-27] MEDS: CYANOCOBALAMIN 1,000 MCG TABLET PO SCH (10:11)
[2019-07-27] MEDS: TOLTERODINE TARTRATE 1 MG PO SCH ×2 (10:12→20:31)
[2019-07-27] MEDS: traMADol HCL 50 MG TABLET PO SCH (10:23)
[2019-07-27] MEDS: FLUTICASONE PROPION/SALMETEROL 14 PUFF DISK.W.DEV IH SCH ×2 (10:24→20:30)
[2019-07-27] MEDS: INSULIN LISPRO 100 UNITS/ML VIAL SC SCH ×3 (12:20→20:36)
[2019-07-27 13:33] LABS: Troponin I Less than 0.017 ng/mL (0.00-0.10)
[2019-07-27 13:39] LABS: CK Total * 36 U/L (0-259); CKMB 0.9 ng/mL (0.0-9.0)
--- NOTE | 2019-07-27 13:39 | PN ---
Subjective - Date and Time Seen Date: 07/27/19 Time: 08:20 Subjective Narrative: Patient is AOX3 in comparison to admission. Able to have a conversation and laugh. Able to speak full sentences with less distress. Patient reports respiratory symptoms have improved, however she is still using accessory muscles with minimal visible retractions. Cough has improved, but present. No Fever. No Chills. No CP. Objective - Review of Systems Generalized/Overall Review: Reports: Weakness, Fatigue. Denies: Fever EENTM: Reports: No Symptoms Reported Respiratory: Reports: Cough, Shortness of Breath, Orthopnea. Denies: Wheezing Cardiac: Reports: Edema. Denies: Chest Pain Abdominal: Denies: Nausea, Vomiting, Abdominal Pain Genitourinary Symptoms: Reports: Incontinent, Other - able to use bedside commode if she has assistance in adequate time, otherwise wears adult diapers. Denies: Urgency, Frequency, Dysuria Neurological: Reports: Weakness - generalized Endocrine: Reports: No Symptoms Reported - Vitals Vitals: Last Vital Signs Temp 37.1 C 07/27/19 09:56 Pulse 90 07/27/19 10:06 Resp 20 07/27/19 09:56 BP 167/77 H 07/27/19 10:06 Pulse Ox 95 07/27/19 11:55 - Abnormal Lab Findings Abnormal Lab Findings: Abnormal Lab Results 07/26/19 07/26/19 07/26/19 Range/Units 18:15 18:15 18:20 WBC 23.2 H (4.0-10.5) K/mm3 RBC (4.2-5.4) M/mm3 Hgb 11.9 L (12.5-16.0) gm/dL MCHC 30.4 L (32-36) g/dl Neutrophils % (Manual) 84 H (42-75) % Band Neuts % (Manual) (0-2.0) % Lymphocytes % (Manual) 4 L (20-51) % Monocytes % (Manual) 10 H (0-9) % Immature Granulocytes (0-1) Neutrophils # (Manual) 19.5 H (1.3-6.0) K/mm3 Lymphocytes # (Manual) 0.9 L (1.5-3.5) k/mm3 Monocytes # (Manual) 2.3 H (0.0-1.0) k/mm3 Basophils # (Manual) (0.0-0.1) k/mm3 PT (9.1-10.7) Seconds INR (Anticoag Therapy) (0.92-1.08) INR D-Dimer (0.19-0.49) ug/mL pCO2 54.8 H (32.0-45.0) mmHg pO2 72.3 L (83.0-108.0) mmHg HCO3 31.3 H (21.0-28.0) mmol/L Total CO2 32.9 H (19.0-24.0) mmol/L Base Excess 4.8 H (-2.0-3.0) mmol/L ABG O2 Sat (Measured) 93.9 L (94.0-98.0) % Chloride (97-106) mmol/L Carbon Dioxide 35.1 H (24-32.6) mmol/L Anion Gap (6.8-13.8) mmol/L Random Glucose 120 H (70-110) mg/dL Calcium Adj for Albumin 10.4 H (8.4-10.2) mg/dL Total Bilirubin (0.0-1.1) mg/dL ALT 11 L (19-67) U/L C-Reactive Prot, Quant 2.7 H (0.0-0.9) mg/dL Albumin (3.4-5.0) gm/dl Procalcitonin (0.05-0.50) ng/mL Urine pH (5.0-7.0) pH Urine Protein (NEGATIVE) mg/dL Urine Blood (NEGATIVE) /ul Ur Epithelial Cells (0-5) /hpf 07/26/19 07/27/19 07/27/19 Range/Units 18:59 00:00 00:00 WBC 28.0 H D (4.0-10.5) K/mm3 RBC 4.10 L (4.2-5.4) M/mm3 Hgb 11.5 L (12.5-16.0) gm/dL MCHC 30.0 L (32-36) g/dl Neutrophils % (Manual) (42-75) % Band Neuts % (Manual) 20 H (0-2.0) % Lymphocytes % (Manual) 1 L (20-51) % Monocytes % (Manual) (0-9) % Immature Granulocytes 4 H (0-1) Neutrophils # (Manual) 18.8 H (1.3-6.0) K/mm3 Lymphocytes # (Manual) 0.3 L (1.5-3.5) k/mm3 Monocytes # (Manual) 2.0 H (0.0-1.0) k/mm3 Basophils # (Manual) 0.3 H (0.0-0.1) k/mm3 PT (9.1-10.7) Seconds INR (Anticoag Therapy) (0.92-1.08) INR D-Dimer (0.19-0.49) ug/mL pCO2 (32.0-45.0) mmHg pO2 (83.0-108.0) mmHg HCO3 (21.0-28.0) mmol/L Total CO2 (19.0-24.0) mmol/L Base Excess (-2.0-3.0) mmol/L ABG O2 Sat (Measured) (94.0-98.0) % Chloride (97-106) mmol/L Carbon Dioxide 37.9 H (24-32.6) mmol/L Anion Gap 5.9 L (6.8-13.8) mmol/L Random Glucose 116 H (70-110) mg/dL Calcium Adj for Albumin 10.8 H (8.4-10.2) mg/dL Total Bilirubin 1.4 H (0.0-1.1) mg/dL ALT 9 L (19-67) U/L C-Reactive Prot, Quant 8.4 H (0.0-0.9) mg/dL Albumin 3.0 L (3.4-5.0) gm/dl Procalcitonin (0.05-0.50) ng/mL Urine pH 8.0 H (5.0-7.0) pH Urine Protein 30 H (NEGATIVE) mg/dL Urine Blood 5 H (NEGATIVE) /ul Ur Epithelial Cells 5-10 H (0-5) /hpf 07/27/19 07/27/19 07/27/19 Range/Units 00:00 00:00 00:00 WBC (4.0-10.5) K/mm3 RBC (4.2-5.4) M/mm3 Hgb (12.5-16.0) gm/dL MCHC (32-36) g/dl Neutrophils % (Manual) (42-75) % Band Neuts % (Manual) (0-2.0) % Lymphocytes % (Manual) (20-51) % Monocytes % (Manual) (0-9) % Immature Granulocytes (0-1) Neutrophils # (Manual) (1.3-6.0) K/mm3 Lymphocytes # (Manual) (1.5-3.5) k/mm3 Monocytes # (Manual) (0.0-1.0) k/mm3 Basophils # (Manual) (0.0-0.1) k/mm3 PT 10.8 H (9.1-10.7) Seconds INR (Anticoag Therapy) 1.09 H (0.92-1.08) INR D-Dimer 0.59 H (0.19-0.49) ug/mL pCO2 (32.0-45.0) mmHg pO2 (83.0-108.0) mmHg HCO3 (21.0-28.0) mmol/L Total CO2 (19.0-24.0) mmol/L Base Excess (-2.0-3.0) mmol/L ABG O2 Sat (Measured) (94.0-98.0) % Chloride (97-106) mmol/L Carbon Dioxide (24-32.6) mmol/L Anion Gap (6.8-13.8) mmol/L Random Glucose (70-110) mg/dL Calcium Adj for Albumin (8.4-10.2) mg/dL Total Bilirubin (0.0-1.1) mg/dL ALT (19-67) U/L C-Reactive Prot, Quant (0.0-0.9) mg/dL Albumin (3.4-5.0) gm/dl Procalcitonin 0.94 H (0.05-0.50) ng/mL Urine pH (5.0-7.0) pH Urine Protein (NEGATIVE) mg/dL Urine Blood (NEGATIVE) /ul Ur Epithelial Cells (0-5) /hpf 07/27/19 07/27/19 Range/Units 05:50 05:50 WBC 26.1 H (4.0-10.5) K/mm3 RBC (4.2-5.4) M/mm3 Hgb 11.9 L (12.5-16.0) gm/dL MCHC 30.2 L (32-36) g/dl Neutrophils % (Manual) 82 H (42-75) % Band Neuts % (Manual) 11 H (0-2.0) % Lymphocytes % (Manual) 3 L (20-51) % Monocytes % (Manual) (0-9) % Immature Granulocytes 2 H (0-1) Neutrophils # (Manual) 21.4 H (1.3-6.0) K/mm3 Lymphocytes # (Manual) 0.8 L (1.5-3.5) k/mm3 Monocytes # (Manual) (0.0-1.0) k/mm3 Basophils # (Manual) (0.0-0.1) k/mm3 PT (9.1-10.7) Seconds INR (Anticoag Therapy) (0.92-1.08) INR D-Dimer (0.19-0.49) ug/mL pCO2 (32.0-45.0) mmHg pO2 (83.0-108.0) mmHg HCO3 (21.0-28.0) mmol/L Total CO2 (19.0-24.0) mmol/L Base Excess (-2.0-3.0) mmol/L ABG O2 Sat (Measured) (94.0-98.0) % Chloride 95 L (97-106) mmol/L Carbon Dioxide 35.1 H (24-32.6) mmol/L Anion Gap (6.8-13.8) mmol/L Random Glucose 134 H (70-110) mg/dL Calcium Adj for Albumin 10.8 H (8.4-10.2) mg/dL Total Bilirubin (0.0-1.1) mg/dL ALT 13 L (19-67) U/L C-Reactive Prot, Quant (0.0-0.9) mg/dL Albumin 3.1 L (3.4-5.0) gm/dl Procalcitonin (0.05-0.50) ng/mL Urine pH (5.0-7.0) pH Urine Protein (NEGATIVE) mg/dL Urine Blood (NEGATIVE) /ul Ur Epithelial Cells (0-5) /hpf - EKG/Xray Findings EKG: NSR, ST depression - moderate ST segment depression and pathlogic q waves in V2-V4 concerning for possible anterior infarction with poor R wave progression with first degree AV block Change from previous tracing obtained on 07/26/19 which was concerning for most sinus tachycardia with probably old anterior myocardial infarction age indeterminate, prolonged LA interval - 232, abnormal Q waves - Lead v1-4 Lead II, III, aVF, changed from - 07/26/19 @17:39, other - MODERATE ST DEPRESSION IN LEADS V2-V4 EKG read: Interp. by me - moderate ST segment depression and pathlogic q waves in V2-V4 concerning for possible anterior infarction with poor R wave progression with first degree AV block Change from previous tracing obtained on 07/26/19 which was concerning for most sinus tachycardia with probably old anterior myocardial infarction age indeterminate XRAY: chest Interpretation: Reviewed by me - Exam Constitutional: Present: Alert, Oriented x3, Cooperative, Mild distress, Morbidly obese ENT Exam: Present: hearing grossly normal Neck: Present: non-tender, full range of motion, supple Respiratory: Present: lungs clear, decreased breath sounds - DIFFUSE, accessory muscle use, No rales, No wheezing Cardiovascular/Chest: Present: normal peripheral pulses, regular rate, rhythm, no JVD, no murmur, edema Abdomen: Present: soft, nontender, nondistended, other - HARD TO APPRECIATE BS DISTANT DUE TO HABITUS /Rectal: Present: Exam deferred Extremity: Present: lower extremity edema, swelling, other - STASIS DERMATITIS Skin Exam: Present: skin rash - STASIS DERMATITIS Neurologic: Present: alert, oriented x 3, motor weakness Appearance: Present: appropriate appearance, no memory impairment Eye contact: Present: cooperative, good eye contact, normal speech Thoughts: Present: normal thought pattern Assessment/Plan Plan Narrative: Assessment/Plan 71-year-old female resident of [facility] admitted for acute on chronic hypercapnic respiratory failure secondary to Hospital Acquired Pneumonia and to Rule out COVID-19. Patient does not meet Inpatient Criteria, however the risks of discharging the patient to a Assisted Care Facility with residents whom are mostly likely at high risk of infection if exposed to Coronavirus, may result in adverse consequences, if patient tests positive. Therefore, patient cannot be discharged without COVID-19 being ruled out. Till results are available, I recommend isolation in a negative pressure room with airborne precautions, which would not be possible at a [facility] ([facility]). Expected length of stay should not be greater than 72 hours. 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 Day#1/5 - Follow up on Pulmonary rehab consult - Continue use of CPAP overnight Hospital acquired PNA -Met sepsis criteria, will continue borad spectrum antibiotics of IV Levaquin 750 milligrams 24-hour and vancomycin 1.5 mg every 12 hours -Sputum cultures pending -CXR shows improvement of atelectasis, no changein infiltrate. Cont. Incentive spirometry Q2H whilst awake - Narrow spectrum of abx once cultures are available Fluid, electrolytes, nutrition: Heart health Diet DVT prophylaxis: Lovenox 40 mg subcutaneous every 24 hours CODE STATUS: DNR/DNI Disposition - Critical D-dimer reported, with, awaiting ABG and Cardiac workup and will consider CTA is probability of PE is high. - Changes on EKG concerning for acute ischemic cardiomyopathy, awaiting cardiac workup before further intervention. Patient denies CP/ - Continue to monitor respiratory status, will consider BiPAP pending ABGs - Continue airborne precaution and isolation till covert 19 results available - Once culture results are available we will narrow spectrum of antibiotics - Anticipate discharge to [facility] within 48 to 72 hours - Problems/Diagnosis (1) Sepsis Problem: Acute Qualifiers: Sepsis type: sepsis due to unspecified organism Sepsis acute organ dysfunction status: with acute organ dysfunction Acute respiratory failure type: with hypercapnia Severe sepsis shock status: without septic shock (2) Hypercapnic respiratory failure Problem: Acute Qualifiers: Chronicity: acute on chronic Qualified Code(s): J96.22 - Acute and chronic respiratory failure with hypercapnia (3) Hospital acquired PNA Problem: Acute (4) Anasarca Problem: Suspected
[2019-07-27 14:30] LABS: CRP 22.4 mg/dL (0.0-0.9)
[2019-07-27] MEDS: LEVOFLOXACIN IN DEXTROSE 5 % 750 MG/150 ML BAG IV SCH (20:30)
[2019-07-28] MEDS: LEVALBUTEROL HCL 1.25 MG/3 ML AMPUL IH SCH ×4 (06:10→19:08)
[2019-07-28 06:35] LABS: Hematocrit 35.8 % (37.0-47.0); Hemoglobin 10.7 gm/dL (12.5-16.0); Mean Corpuscular Hemoglobin 28.1 pg (27-31); Mean Corpuscular Hgb Conc 29.9 g/dl (32-36); Mean Platelet Volume 10.3 fl (8-12.5); Neutrophil # 16.2 K/mm3 (1.3-6.0); Neutrophil % 84.6 % (42-75.0); Platelet Count 283 K/mm3 (150-450); Red Blood Count 3.81 M/mm3 (4.2-5.4); White Blood Count 19.1 K/mm3 (4.0-10.5)
[2019-07-28 06:51] LABS: Albumin * 2.7 gm/dl (3.4-5.0); Anion Gap 6.1 mmol/L (6.8-13.8); BUN/Creatinine Ratio 19.7 (9.0-21.6); Bilirubin, Total 0.4 mg/dL (0.0-1.1); Ca. Corrected For Albumin 11.3 mg/dL (8.4-10.2); Calcium * 10.6 mg/dL (7.9-10.9); Carbon Dioxide 38.3 mmol/L (24-32.6); Potassium 3.4 mmol/L (3.4-4.6); Total Protein 6.5 gm/dL (6.2-8.2)
[2019-07-28] MEDS: INSULIN LISPRO 100 UNITS/ML VIAL SC SCH ×4 (07:04→20:10)
[2019-07-28] MEDS: SUCRALFATE 1 G/10 ML UDC PO SCH ×4 (07:20→20:10)
[2019-07-28] MEDS: PANTOPRAZOLE SODIUM 40 MG TABLET.EC PO SCH (07:20)
[2019-07-28] MEDS: FLUTICASONE PROPION/SALMETEROL 14 PUFF DISK.W.DEV IH SCH ×2 (09:53→20:09)
[2019-07-28] MEDS: ASPIRIN 81 MG TABLET.DR PO SCH (09:54)
[2019-07-28] MEDS: LORATADINE 10 MG TABLET PO SCH (09:55)
[2019-07-28] MEDS: predniSONE 20 MG TABLET PO SCH (09:55)
[2019-07-28] MEDS: ESCITALOPRAM OXALATE 10 MG TAB PO SCH (09:56)
[2019-07-28] MEDS: GABAPENTIN 300 MG CAPSULE PO SCH ×3 (09:56→17:21)
[2019-07-28] MEDS: FUROSEMIDE 40 MG TABLET PO SCH (09:56)
[2019-07-28] MEDS: TIOTROPIUM BROMIDE 5 CAP INHALER IH SCH (09:56)
[2019-07-28] MEDS: METOPROLOL TARTRATE 25 MG TABLET PO SCH ×2 (09:56→20:11)
[2019-07-28] MEDS: TOLTERODINE TARTRATE 1 MG PO SCH ×2 (09:58→20:11)
[2019-07-28] MEDS: traMADol HCL 50 MG TABLET PO SCH (09:58)
[2019-07-28] MEDS: CYANOCOBALAMIN 1,000 MCG TABLET PO SCH (09:59)
[2019-07-28] MEDS: ASCORBIC ACID 500 MG TABLET PO SCH (09:59)
[2019-07-28] MEDS: CHOLECALCIFEROL 1,000 UNIT CAPSULE PO SCH (09:59)
[2019-07-28] MEDS ORDERED: VANCOMYCIN HCL LEVEL XX ONE (12:00)
--- NOTE | 2019-07-28 12:42 | PN ---
Subjective - Date and Time Seen Date: 07/28/19 Time: 12:42 Subjective Narrative: Patient doing a lot better. No complaints. Advised COVID-19 has been ruled out. Discussed management and most likely d/c to shelter in AM Objective - Review of Systems Generalized/Overall Review: Denies: Weakness, Chills, Fever, Fatigue EENTM: Reports: No Symptoms Reported Respiratory: Reports: Cough, Shortness of Breath Cardiac: Reports: Edema. Denies: Chest Pain Abdominal: Reports: No Symptoms Reported Genitourinary Symptoms: Reports: No Symptoms Reported Musculoskeletal Complaints: Reports: No Symptoms Reported Neurological: Reports: Weakness Skin: Reports: No Symptoms Reported Endocrine: Reports: No Symptoms Reported - Vitals Vitals: Last Vital Signs Temp 36.5 C 07/28/19 10:00 Pulse 80 07/28/19 10:20 Resp 17 07/28/19 10:20 BP 144/73 07/28/19 10:00 Pulse Ox 100 07/28/19 10:11 - Abnormal Lab Findings Abnormal Lab Findings: Abnormal Lab Results 07/27/19 07/27/19 07/27/19 Range/Units 13:10 13:10 13:30 WBC (4.0-10.5) K/mm3 RBC (4.2-5.4) M/mm3 Hgb (12.5-16.0) gm/dL Hct (37.0-47.0) % MCHC (32-36) g/dl Immature Gran % (Auto) (0.001-0.429) % Immature Gran # (Auto) (0.000-0.0310) K/mm3 Neutrophils % (42-75.0) % Lymphocytes % (20-51) % Neutrophils # (1.3-6.0) K/mm3 Lymphocytes # (1.5-3.5) k/mm3 Monocytes # (0.0-1.0) k/mm3 pCO2 51.9 H (32.0-45.0) mmHg Total CO2 29.5 H (19.0-24.0) mmol/L Carbon Dioxide (24-32.6) mmol/L Anion Gap (6.8-13.8) mmol/L Random Glucose (70-110) mg/dL Calcium Adj for Albumin (8.4-10.2) mg/dL ALT (19-67) U/L C-Reactive Prot, Quant 22.4 H (0.0-0.9) mg/dL Albumin (3.4-5.0) gm/dl Procalcitonin 0.93 H (0.05-0.50) ng/mL 07/28/19 07/28/19 Range/Units 05:45 05:45 WBC 19.1 H D (4.0-10.5) K/mm3 RBC 3.81 L (4.2-5.4) M/mm3 Hgb 10.7 L (12.5-16.0) gm/dL Hct 35.8 L (37.0-47.0) % MCHC 29.9 L (32-36) g/dl Immature Gran % (Auto) 0.70 H (0.001-0.429) % Immature Gran # (Auto) 0.13 H (0.000-0.0310) K/mm3 Neutrophils % 84.6 H (42-75.0) % Lymphocytes % 7.1 L (20-51) % Neutrophils # 16.2 H (1.3-6.0) K/mm3 Lymphocytes # 1.36 L (1.5-3.5) k/mm3 Monocytes # 1.4 H (0.0-1.0) k/mm3 pCO2 (32.0-45.0) mmHg Total CO2 (19.0-24.0) mmol/L Carbon Dioxide 38.3 H (24-32.6) mmol/L Anion Gap 6.1 L (6.8-13.8) mmol/L Random Glucose 112 H (70-110) mg/dL Calcium Adj for Albumin 11.3 H (8.4-10.2) mg/dL ALT 15 L (19-67) U/L C-Reactive Prot, Quant (0.0-0.9) mg/dL Albumin 2.7 L (3.4-5.0) gm/dl Procalcitonin (0.05-0.50) ng/mL - Exam Constitutional: Present: Alert, Oriented x3, Cooperative, No distress ENT Exam: Present: hearing grossly normal Respiratory: Present: lungs clear, normal breath sounds, no respiratory distress, no accessory muscle use, No wheezing Cardiovascular/Chest: Present: normal peripheral pulses, regular rate, rhythm, no chest tenderness, no JVD, no murmur, edema Abdomen: Present: Normal bowel sounds, soft, nontender, nondistended Extremity: Present: normal range of motion, non-tender, lower extremity edema, pedal edema Skin Exam: Present: skin rash - STASIS DERMATITIS Neurologic: Present: alert, oriented x 3 Appearance: Present: appropriate appearance, appropriate insight Eye contact: Present: cooperative, good eye contact Thoughts: Present: normal thought pattern Assessment/Plan Plan Narrative: Assessment/Plan 71-year-old female resident of [facility] admitted for acute on chronic hypercapnic respiratory failure secondary to Hospital Acquired Pneumonia. COVID-19 Ruled out Hospital acquired PNA - IV Levaquin 750 milligrams 24-hour Day #3/ and vancomycin 1.5 mg every 12 hours Day #3. Vanc Trough reviewed. Transition to PO in AM. D/C Vanc in AM. -Sputum cultures negative - Cont. Incentive spirometry Q2H whilst awake - Elevated WBC, will narrow spectrum of abx tomorrow AM. - Blood cx negative. 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 Day#2/5 - Pulmonary rehab consulted. Appreciate recommendations - Continue use of CPAP overnight Fluid, electrolytes, nutrition: Heart health Diet DVT prophylaxis: Lovenox 40 mg subcutaneous every 24 hours CODE STATUS: DNR/DNI Disposition - Transition to PO abx in AM - Anticipate discharge to [facility] in AM. - Problems/Diagnosis (1) Sepsis Problem: Acute Qualifiers: Sepsis type: sepsis due to unspecified organism Sepsis acute organ dysfunction status: with acute organ dysfunction Acute respiratory failure type: with hypercapnia Severe sepsis shock status: without septic shock (2) Hypercapnic respiratory failure Problem: Acute Qualifiers: Chronicity: acute on chronic Qualified Code(s): J96.22 - Acute and chronic respiratory failure with hypercapnia (3) Hospital acquired PNA Problem: Acute (4) Anasarca Problem: Suspected
[2019-07-28] MEDS: VANCOMYCIN/WATER FOR INJ (PEG) 1.5 GM/300 ML BAG IV SCH (13:57)
[2019-07-28] MEDS: LEVOFLOXACIN IN DEXTROSE 5 % 750 MG/150 ML BAG IV SCH (20:09)
[2019-07-28] MEDS: oxyCODONE HCL 5 MG TABLET PO SCH (20:11)
[2019-07-28] MEDS: ACETAMINOPHEN 325 MG TABLET PO SCH (20:12)
[2019-07-28] MEDS: ENOXAPARIN SODIUM 40 MG/0.4 ML SYRG SC SCH (21:49)
[2019-07-29] MEDS: VANCOMYCIN/WATER FOR INJ (PEG) 1.5 GM/300 ML BAG IV SCH ×2 (00:12→11:34)
[2019-07-29 05:32] LABS: Hemoglobin 10.9 gm/dL (12.5-16.0); Mean Cell Volume 93.9 fl (78-100); Mean Corpuscular Hemoglobin 27.7 pg (27-31); Mean Corpuscular Hgb Conc 29.5 g/dl (32-36); Mean Platelet Volume 9.9 fl (8-12.5); Neutrophil # 10.4 K/mm3 (1.3-6.0); Neutrophil % 80.8 % (42-75.0); Platelet Count 283 K/mm3 (150-450); Red Blood Count 3.94 M/mm3 (4.2-5.4); Red Cell Distribution Width 12.6 % (11.5-14.0); White Blood Count 12.9 K/mm3 (4.0-10.5)
[2019-07-29 06:07] LABS: Albumin * 2.7 gm/dl (3.4-5.0); Anion Gap 4.9 mmol/L (6.8-13.8); BUN/Creatinine Ratio 17.7 (9.0-21.6); Bilirubin, Total 0.4 mg/dL (0.0-1.1); Ca. Corrected For Albumin 11.6 mg/dL (8.4-10.2); Calcium * 10.9 mg/dL (7.9-10.9); Carbon Dioxide 38.6 mmol/L (24-32.6); Potassium 3.5 mmol/L (3.4-4.6); Total Protein 6.5 gm/dL (6.2-8.2)
[2019-07-29] MEDS: LEVALBUTEROL HCL 1.25 MG/3 ML AMPUL IH SCH ×2 (06:09→10:07)
[2019-07-29] MEDS: SUCRALFATE 1 G/10 ML UDC PO SCH ×2 (07:05→11:33)
[2019-07-29] MEDS: PANTOPRAZOLE SODIUM 40 MG TABLET.EC PO SCH (07:06)
[2019-07-29] MEDS: INSULIN LISPRO 100 UNITS/ML VIAL SC SCH ×2 (07:09→11:33)
[2019-07-29] MEDS: CYANOCOBALAMIN 1,000 MCG TABLET PO SCH (08:14)
[2019-07-29] MEDS: FLUTICASONE PROPION/SALMETEROL 14 PUFF DISK.W.DEV IH SCH (08:14)
[2019-07-29] MEDS: ASPIRIN 81 MG TABLET.DR PO SCH (08:15)
[2019-07-29] MEDS: ASCORBIC ACID 500 MG TABLET PO SCH (08:15)
[2019-07-29] MEDS: CHOLECALCIFEROL 1,000 UNIT CAPSULE PO SCH (08:15)
[2019-07-29] MEDS: predniSONE 20 MG TABLET PO SCH (08:15)
[2019-07-29] MEDS: FUROSEMIDE 40 MG TABLET PO SCH (08:15)
[2019-07-29] MEDS: ESCITALOPRAM OXALATE 10 MG TAB PO SCH (08:15)
[2019-07-29] MEDS: LORATADINE 10 MG TABLET PO SCH (08:16)
[2019-07-29] MEDS: TOLTERODINE TARTRATE 1 MG PO SCH (08:16)
[2019-07-29] MEDS: METOPROLOL TARTRATE 25 MG TABLET PO SCH (08:16)
[2019-07-29] MEDS: GABAPENTIN 300 MG CAPSULE PO SCH ×2 (08:16→14:50)
[2019-07-29] MEDS: TIOTROPIUM BROMIDE 5 CAP INHALER IH SCH (08:16)
[2019-07-29] MEDS: traMADol HCL 50 MG TABLET PO SCH (08:19)
--- NOTE | 2019-07-29 11:59 | DS ---
(1) Sepsis Problem: Resolved Qualifiers: Sepsis type: sepsis due to unspecified organism Sepsis acute organ dysfunction status: with acute organ dysfunction Acute respiratory failure type: with hypercapnia Severe sepsis shock status: without septic shock (2) Hypercapnic respiratory failure Problem: Resolved Qualifiers: Chronicity: acute on chronic Qualified Code(s): J96.22 - Acute and chronic respiratory failure with hypercapnia (3) Hospital acquired PNA Problem: Acute (4) Anasarca Problem: Suspected (5) COVID-19 virus not detected Problem: Acute Date of Discharge:: 07/29/19 Hospital Course: 79-year-old female a resident of [facility] presents to [facility] with concerns of dyspnea progressively getting worse for 1 day. Associated with a productive cough and one episode of nonbloody nonbilious emesis prior to arrival to the emergency department. Patient denies any chest pain. Patient denies any exposure to known present corvette 19. Patient denies any recent travel. Patient's past medical history is significant for oxygen dependent COPD, hypertension, GERD, peripheral vascular disease, venous stasis of both lower extremities and morbid obesity. Admitted for Sepsis secondary to HAP and Acute on Chronic respiratory failure in the setting of oxygen dependent COPD and COVID-19 rule out. Started on Levaquin 750 mg IV and IV Vanc 1.5 g, Solu-Medrol 125 MG IV x 1, and started on PO Prednisone 40 mg PO QAM X 5 days. patient improved during hospitalization. COVID-19 ruled out on 07/27/19 and patient transferred to [facility]- Surg. Blood, Sputum and Urine Cultures showed no growth. PT/OT ordered prior to discharge to SNF. Transitioned to PO Levaquin 750 mg Q24H X 2 more days. D/C vanc prior to discharge. Prednisone 40 mg PO QAM X 2 more days. Continue Breathing treatments as scheduled at [facility] Patient will be discharged to [facility]. Procedures Performed: none Care Plan Goals: Complete Antibioitc and Prednisone treatment Continue with breathing treatments Discharge to SNF Plan of Treatment: Levaquin 750 mg PO QD X 3 DAYS Prednisone 40 mg PO QAM X 2 DAYS Health Concerns: Morbid Obesity Assessment: Acute on Chronic Respiratory Failure in the setting of COPD and HAP Results and Findings: Pending Mircobiology Results 07/26/19 18:44 Blood Blood Culture - Preliminary NO GROWTH AFTER 48 HOURS 07/26/19 18:15 Blood Blood Culture - Preliminary NO GROWTH AFTER 48 HOURS Lab Pending Results 07/26/19 18:15: WBC 23.2 H, RBC 4.23, Hgb 11.9 L, Hct 39.1, MCV 92.4, MCH 28.1, MCHC 30.4 L, RDW 12.9, Plt Count 309, MPV 9.6, Neutrophils % (Manual) 84 H, Band Neuts % (Manual) 2, Lymphocytes % (Manual) 4 L, Monocytes % (Manual) 10 H, Neutrophils # (Manual) 19.5 H, Lymphocytes # (Manual) 0.9 L, Monocytes # (Manual) 2.3 H, Platelet Estimate Normal, RBC Morphology Normal 07/26/19 18:15: Sodium 138, Plasma Sodium 138, Potassium 3.5, Chloride 98, Carbon Dioxide 35.1 H, Anion Gap 8.4, BUN 11, Creatinine 0.60, Est GFR (Non-Af Amer) 103, BUN/Creatinine Ratio 18.3, Random Glucose 120 H, Calcium 10.2, Calcium Adj for Albumin 10.4 H, Total Bilirubin 0.8, AST 12, ALT 11 L, Alkaline Phosphatase 68, Troponin I Less than 0.017, C-Reactive Prot, Quant 2.7 H, B- Natriuretic Peptide 236, Total Protein 7.1, Albumin 3.4 07/26/19 18:15: Lactic Acid, Venous 1.7 07/26/19 18:15: SARS-CoV-2 (PCR) Not detected 07/26/19 18:15: Procalcitonin 0.12 07/26/19 18:15: Chlamy pneumoniae PCR Not detected, Adenovirus (PCR) Not detected, B. pertussis DNA (PCR) Not detected, Coronavirus OC43 (PCR) Not detected, Coronavirus HKU1 (PCR) Not detected, Coronavirus 229E (PCR) Not detected, Coronavirus NL63 (PCR) Not detected, Human Metapneumovir PCR Not detected, Influenza A (H1) PCR Not detected, Influenza A (H1N1) PCR Not detected, Influenza A (H3) PCR Not detected, Influenza B (RT-PCR) Not detected, M. pneumoniae (PCR) Not detected, Parainfluenza 1 (PCR) Not detected, Parainfluenza 2 (PCR) Not detected, Parainfluenza 3 (PCR) Not detected, Parainfluenza 4 (PCR) Not detected, RSV (PCR) Not detected, Rhinovirus (PCR) Not detected 07/26/19 18:20: pCO2 54.8 H, pO2 72.3 L, HCO3 31.3 H, Total CO2 32.9 H, Base Excess 4.8 H, ABG pH 7.37, ABG O2 Sat (Measured) 93.9 L 07/26/19 18:24: Group A Strep Rapid Negative 07/26/19 18:59: Urine Color Pale yellow, Urine Appearance Clear, Urine pH 8.0 H, Ur Specific [place] 1.015, Urine Protein 30 H, Urine Glucose (UA) Negative, Urine Ketones Negative, Urine Blood 5 H, Urine Nitrate Negative, Urine Bilirubin Negative, Prot Sulfosalicylic Acd 1+, Urine Urobilinogen Normal, Ur Leukocyte Esterase Negative, Urine RBC 0-5, Urine WBC 0-5, Ur Epithelial Cells 5-10 H, Urine Bacteria None seen, Urine Culture Comments Culture to follow 07/27/19 00:00: Sodium 138, Plasma Sodium 138, Potassium 3.8, Chloride 98, Carbon Dioxide 37.9 H, Anion Gap 5.9 L, BUN 14, Creatinine 0.72, Est GFR (Non-Af Amer) 83, BUN/Creatinine Ratio 19.4, Random Glucose 116 H, Calcium 10.3, Calcium Adj for Albumin 10.8 H, Total Bilirubin 1.4 H, AST 12, ALT 9 L, Alkaline Phosphatase 60, Lactate Dehydrogenase 118, Creatine Kinase 35, CK-MB (CK-2) Less than 0.5, CK-MB (CK-2) Rel Index 1.4, Troponin I 0.021, C-Reactive Prot, Quant 8.4 H, Total Protein 6.5, Albumin 3.0 L 07/27/19 00:00: Lactic Acid, Venous 1.4 07/27/19 00:00: WBC 28.0 H D, RBC 4.10 L, Hgb 11.5 L, Hct 38.3, MCV 93.4, MCH 28.0, MCHC 30.0 L, RDW 13.1, Plt Count 292, MPV 9.8, Neutrophils % (Manual) 67, Band Neuts % (Manual) 20 H, Lymphocytes % (Manual) 1 L, Monocytes % (Manual) 7, Basophils % (Manual) 1, Immature Granulocytes 4 H, Neutrophils # (Manual) 18.8 H, Lymphocytes # (Manual) 0.3 L, Monocytes # (Manual) 2.0 H, Basophils # (Manual) 0.3 H, Toxic Granulation 2+, Hypochromasia 1+, Stomatocytes 1+ 07/27/19 00:00: PT 10.8 H, INR (Anticoag Therapy) 1.09 H 07/27/19 00:00: D-Dimer 0.59 H 07/27/19 00:00: Procalcitonin 0.94 H 07/27/19 05:50: WBC 26.1 H, RBC 4.21, Hgb 11.9 L, Hct 39.4, MCV 93.6, MCH 28.3, MCHC 30.2 L, RDW 13.1, Plt Count 274, MPV 10.1, Neutrophils % (Manual) 82 H, Band Neuts % (Manual) 11 H, Lymphocytes % (Manual) 3 L, Monocytes % (Manual) 2, Immature Granulocytes 2 H, Neutrophils # (Manual) 21.4 H, Lymphocytes # (Manual) 0.8 L, Monocytes # (Manual) 0.5, Toxic Granulation Trace, Platelet Estimate Normal, Stomatocytes 1+ 07/27/19 05:50: Sodium 135, Plasma Sodium 136, Potassium 3.7, Chloride 95 L, Carbon Dioxide 35.1 H, Anion Gap 8.6, BUN 13, Creatinine 0.62, Est GFR (Non-Af Amer) 99, BUN/Creatinine Ratio 21.0, Random Glucose 134 H, Calcium 10.4, Calcium Adj for Albumin 10.8 H, Total Bilirubin 1.1, AST 15, ALT 13 L, Alkaline Phosphatase 62, Total Protein 7.0, Albumin 3.1 L 07/27/19 05:50: C-React Prot High Sens >10.0 H 07/27/19 13:10: Creatine Kinase 36, CK-MB (CK-2) 0.9 D, CK-MB (CK-2) Rel Index 2.5, Troponin I Less than 0.017, C-Reactive Prot, Quant 22.4 H 07/27/19 13:10: Procalcitonin 0.93 H 07/27/19 13:30: pCO2 51.9 H, pO2 87.6, HCO3 27.9, Total CO2 29.5 H, Base Excess 1.6, ABG pH 7.35, ABG O2 Sat (Measured) 96.1 07/28/19 05:45: WBC 19.1 H D, RBC 3.81 L, Hgb 10.7 L, Hct 35.8 L, MCV 94.0, MCH 28.1, MCHC 29.9 L, RDW 13.0, Plt Count 283, MPV 10.3, Immature Gran % (Auto) 0.70 H, Immature Gran # (Auto) 0.13 H, Neutrophils % 84.6 H, Lymphocytes % 7.1 L, Monocytes % 7.5, Eosinophils % 0.0, Basophils % 0.1, Nucleated RBC % 0.0, Neutrophils # 16.2 H, Lymphocytes # 1.36 L, Monocytes # 1.4 H, Eosinophils # 0.0, Absolute Basophils 0.0 07/28/19 05:45: Sodium 138, Plasma Sodium 138, Potassium 3.4, Chloride 97, Carbon Dioxide 38.3 H, Anion Gap 6.1 L, BUN 12, Creatinine 0.61, Est GFR (Non-Af Amer) 101, BUN/Creatinine Ratio 19.7, Random Glucose 112 H, Calcium 10.6, Calcium Adj for Albumin 11.3 H, Total Bilirubin 0.4, AST 13, ALT 15 L, Alkaline Phosphatase 62, Total Protein 6.5, Albumin 2.7 L 07/28/19 12:25: Vancomycin Trough 14.9 07/29/19 05:15: WBC 12.9 H D, RBC 3.94 L, Hgb 10.9 L, Hct 37.0, MCV 93.9, MCH 27 .7, MCHC 29.5 L, RDW 12.6, Plt Count 283, MPV 9.9, Immature Gran % (Auto) 0.50 H, Immature Gran # (Auto) 0.06 H, Neutrophils % 80.8 H, Lymphocytes % 9.5 L, Monocytes % 9.0, Eosinophils % 0.0, Basophils % 0.2, Nucleated RBC % 0.0, Neutrophils # 10.4 H, Lymphocytes # 1.23 L, Monocytes # 1.2 H, Eosinophils # 0.0, Absolute Basophils 0.0 07/29/19 05:15: Sodium 138, Plasma Sodium 138, Potassium 3.5, Chloride 98, Carbon Dioxide 38.6 H, Anion Gap 4.9 L, BUN 11, Creatinine 0.62, Est GFR (Non-Af Amer) 99, BUN/Creatinine Ratio 17.7, Random Glucose 101, Calcium 10.9, Calcium Adj for Albumin 11.6 H, Total Bilirubin 0.4, AST 11, ALT 16 L, Alkaline Phosphatase 55, Total Protein 6.5, Albumin 2.7 L Discharge Location: [facility] Disposition: SNF Condition: Fair Face to Face Encounter completed per [facility] Guidelines: Yes Level of Care: SNF Discharge Activity: Activity as tolerated Discharge Diet: Consistent carbs, Low salt, Low fat/chol Half-Way Therapy: Physical Therapy, Occupation Therapy Additional Patient Instructions (free text): [facility], please call and fax discharge information. PT and OT to evaluate and treat. Complete Home Medications List: Complete Home Medication List: acetaminophen 325 mg tablet 650 mg PO Q4H PRN tab 03/05/18 aspirin 81 mg tablet,delayed release 81 mg PO DAILY 03/05/18 gabapentin 300 mg capsule 300 mg PO TID 28 Days #84 cap 03/05/18 magnesium hydroxide 400 mg/5 mL oral suspension 30 ml PO DAILY PRN ml 03/05/18 metoprolol tartrate 25 mg tablet 25 mg PO BID 28 Days #56 tab 03/05/18 tolterodine 1 mg tablet 1 mg PO BID 14 Days #28 tab 03/05/18 tramadol 50 mg tablet 50 mg PO Q6H PRN 4 Days #16 tab 03/05/18 Loratadine 10 mg PO DAILY 05/10/18 Furosemide [Lasix] 40 mg PO DAILY 28 Days #28 tab 07/27/18 fluticasone propionate 50 mcg/actuation nasal spray,suspension 2 spray NATE DAILY #15.8 g 07/30/18 tramadol 50 mg tablet 50 mg PO DAILY #30 tab 09/06/18 Levalbuterol Tartrate [Xopenex Hfa] 45 mcg INHALATION Q4H PRN 09/12/18 polysaccharide iron complex 150 mg iron capsule 150 mg PO DAILY 09/22/18 escitalopram oxalate 10 mg tablet 10 mg PO DAILY #30 tab 02/03/19 Cholecalciferol (Vitamin D3) [Vitamin D3] 4,000 unit PO DAILY 04/09/19 Cyanocobalamin (Vitamin B-12) [Vitamin B-12] 500 mcg SUBLINGUAL DAILY 04/09/19 Dextromethorphan Polistirex [Delsym] 30 mg PO Q12H PRN 04/09/19 Eucalyptus/Menthol [Sm Cough Drops] 1 ea MM PRN PRN 04/09/19 Ipratropium/Albuterol Sulfate [Iprat-Albut 0.5-3(2.5) mg/3 ml] 3 ml INHALATION Q4H PRN 04/09/19 Psyllium Husk/Aspartame [Metamucil Sugar-Free Powder] 2 tbs PO DAILY PRN 04/09/19 Sucralfate [Carafate Suspension] 1 g PO ACHS #120 udc 04/09/19 Omeprazole 40 mg PO DAILY 05/02/19 Vitamin C 500 mg PO DAILY 05/02/19 oxycodone-acetaminophen 2.5 mg-325 mg tablet 1 tab PO HS #30 tab 06/07/19 Glycopyrrolate/Formoterol Fum [Bevespi Aerosphere Inhaler] 2 puff INHALATION BID 06/29/19 Acetaminophen [Tylenol] 325 mg PO HS #0 tab 07/29/19 Acetaminophen [Tylenol] 650 mg PO Q6H PRN tab 07/29/19 Levofloxacin [Levaquin] 750 mg PO DAILY 3 Days #3 tab 07/29/19 predniSONE [Prednisone] 40 mg PO QAM 2 Days #4 tab 07/29/19
[2019-07-29 13:07] VITALS: BP 115/46
== END 2019-07-29 13:00 | DRG 871 ==
LOC: ER 17:29 → MS 20:17
PROVIDERS: ADMIT Family Medicine; ATTEND Family Medicine
DX: Z99.81 Dependence on supplemental oxygen; Z87.891 Personal history of nicotine dependence; J18.9 Pneumonia, unspecified organism; J96.92 Respiratory failure, unspecified with hypercapnia; Y95 Nosocomial condition; M62.81 Muscle weakness (generalized); A41.9 Sepsis, unspecified organism; J44.1 Chronic obstructive pulmonary disease with (acute) exacerbation; R26.89 Other abnormalities of gait and mobility; E66.01 Morbid (severe) obesity due to excess calories; I87.8 Other specified disorders of veins; J44.0 Chronic obstructive pulmonary disease with (acute) lower respiratory infection; Z68.43 Body mass index [BMI] 50.0-59.9, adult; I73.9 Peripheral vascular disease, unspecified; I10 Essential (primary) hypertension
CPT/HCPCS: 36415; 36600; 71010; 71045; 80053; 80202; 81001; 82550; 82553; 82803; 83519; 83605; 83615; 83880; 84145; 84484; 85007; 85025; 85379; 85610; 86140; 86141; 87040; 87081; 87086; 87430; 87633; 93005; 94640; 94660; 94664; 94760; 96365; 96375; 97161; 99283; 99285; C9803; J0131; J2405

== ENCOUNTER 2020-01-09 15:54 | Inpatient (IN) ==
[2020-01-09] MEDS ORDERED: FUROSEMIDE 10 MG/ML VIAL IV ONE (16:22)
--- NOTE | 2020-01-09 16:34 | ERNOTE ---
Dyspnea - Date Date of Service: 01/09/20 - General Presenting Symptoms: shortness of breath, difficulty of breathing, wheezing Time Seen by Provider: 01/09/20 16:14 Source: patient, EMS Exam Limitations: clinical condition - Immun/Allergies/Home Medications Immunizations: IMMUNIZATION HX Immunizations Up to Date Yes History of Influenza Vaccine Yes Hx Pneumococcal Vaccination Yes Allergies/Adverse Reactions: Allergies cephalexin Allergy (Severe, Verified 07/26/19 17:41) RASH albuterol Allergy (Verified 07/26/19 17:41) unknown cefdinir Allergy (Verified 07/26/19 17:41) unknown Sulfa (Sulfonamide Antibiotics) Allergy (Verified 07/26/19 17:41) unknown Home Medications: HOME MEDICATIONS acetaminophen 325 mg tablet 650 mg PO Q4H PRN tab 03/05/18 [Last Taken 04/30/19] aspirin 81 mg tablet,delayed release 81 mg PO DAILY 03/05/18 [Last Taken 05/02/19] gabapentin 300 mg capsule 300 mg PO TID 28 Days #84 cap 03/05/18 [Last Taken 05/02/19] magnesium hydroxide 400 mg/5 mL oral suspension 30 ml PO DAILY PRN ml 03/05/18 [Last Taken 09/11/18] metoprolol tartrate 25 mg tablet 25 mg PO BID 28 Days #56 tab 03/05/18 [Last Taken 05/02/19] tolterodine 1 mg tablet 1 mg PO BID 14 Days #28 tab 03/05/18 [Last Taken 05/02/19] tramadol 50 mg tablet 50 mg PO Q6H PRN 4 Days #16 tab 03/05/18 [Last Taken 04/30/19] Loratadine 10 mg PO DAILY 05/10/18 [Last Taken 05/02/19] fluticasone propionate 50 mcg/actuation nasal spray,suspension 2 spray NATE DAILY #15.8 g 07/30/18 [Last Taken 05/02/19] tramadol 50 mg tablet 50 mg PO DAILY #30 tab 09/06/18 [Last Taken 05/02/19] Levalbuterol Tartrate [Xopenex Hfa] 45 mcg INHALATION Q4H PRN 09/12/18 [Last Taken Unknown] polysaccharide iron complex 150 mg iron capsule 150 mg PO DAILY 09/22/18 [Last Taken 05/02/19] escitalopram oxalate 10 mg tablet 10 mg PO DAILY #30 tab 02/03/19 [Last Taken 05/02/19] Cholecalciferol (Vitamin D3) [Vitamin D3] 4,000 unit PO DAILY 04/09/19 [Last Taken 05/02/19] Cyanocobalamin (Vitamin B-12) [Vitamin B-12] 500 mcg SUBLINGUAL DAILY 04/09/19 [Last Taken 05/02/19] Dextromethorphan Polistirex [Delsym] 30 mg PO Q12H PRN 04/09/19 [Last Taken Unknown] Ipratropium/Albuterol Sulfate [Iprat-Albut 0.5-3(2.5) mg/3 ml] 3 ml INHALATION Q4H PRN 04/09/19 [Last Taken Unknown] Psyllium Husk/Aspartame [Metamucil Sugar-Free Powder] 2 tbs PO DAILY PRN 04/09/19 [Last Taken Unknown] Sucralfate [Carafate Suspension] 1 g PO ACHS #120 udc 04/09/19 [Last Taken 05/02/19] Omeprazole 40 mg PO DAILY 05/02/19 [Last Taken 05/02/19] Vitamin C 500 mg PO DAILY 05/02/19 [Last Taken 05/02/19] Glycopyrrolate/Formoterol Fum [Bevespi Aerosphere Inhaler] 2 puff INHALATION BID 06/29/19 [Last Taken Unknown] Acetaminophen [Tylenol] 325 mg PO HS #0 tab 07/29/19 [Last Taken Unknown] Acetaminophen [Tylenol] 650 mg PO Q6H PRN tab 07/29/19 [Last Taken Unknown] calcium carbonate 400 mg calcium (1,000 mg) chewable tablet 400 mg PO QID PRN #90 tab 11/04/19 [Last Taken Unknown] furosemide 40 mg tablet 80 mg PO DAILY 28 Days #56 tab 11/25/19 [Last Taken Unknown] oxycodone-acetaminophen 2.5 mg-325 mg tablet 1 tab PO HS #30 tab 12/31/19 [Last Taken Unknown] - History of Present Illness Narrative: patient presents to ed with c/o severe respiratory distress, known hx of chf, copd and chronic respiratory failure Severity: severe Treatment [employer]CTION[employer]GEANT: other - cpap Initiating event: Reports: unknown Frequency of episodes: Reports: frequent episodes Modifying Factors - (Improves): Reports: nothing Modifying Factors (Worsens): Reports: activity Associated Symptoms-Dyspnea: Reports: palpitations, wheezing, lightheadedness Prior Treatment: Reports: recently seen, treated by physician Review of Systems - Review of Systems Constitutional: Present: See HPI, weakness, fatigue, malaise EYE: Present: no symptoms reported ENT: Present: no symptoms reported Respiratory: Present: See HPI, shortness of breath, orthopnea, wheezing Cardiology: Present: See HPI, chest pain Gastrointestinal/Abdominal: Present: no symptoms reported Genitourinary: Present: no symptoms reported Musculoskeletal: Present: no symptoms reported Skin: Present: no symptoms reported Neurological: Present: no symptoms reported Endocrine: Present: no symptoms reported Hematologic/Lymphatic: Present: no symptoms reported Psych: Present: no symptoms reported All Other Systems: All systems neg except as marked Medical History (Last Reviewed 07/27/19 @ 01:36 by Shirley Singh RN) Osteoarthritis (arthritis due to wear and tear of joints) (Chronic) Depression (Acute) Bilateral bunions Bilateral knee pain Onset Date: Unknown Bilateral lower extremity edema COPD (chronic obstructive pulmonary disease) Chronic respiratory failure, unspecified whether with hypoxia or hypercapnia Dependence on supplemental oxygen Essential (primary) hypertension Flat feet, bilateral Gastro-esophageal reflux disease without esophagitis Hx of breast lump Hypothyroidism, unspecified Iron deficiency anemia, unspecified Major depressive disorder with single episode Morbid (severe) obesity due to excess calories Morbid (severe) obesity with alveolar hypoventilation Muscle weakness (generalized) Onychomycosis Other abnormalities of gait and mobility Other forms of dyspnea Other sleep apnea Pain in unspecified knee Peripheral vascular disease, unspecified Polyp of colon Toe pain, bilateral Unspecified cataract Vitamin B12 deficiency anemia due to intrinsic factor deficiency Vitamin D deficiency, unspecified Surgical History: Surgical History (Last Reviewed 07/27/19 @ 00:01 by Shirley Singh RN) Hx laparoscopic cholecystectomy Hx of breast lump removal Hx of hernia repair Hx of hysterectomy Hx of total knee replacement Family History: Family History (Last Reviewed 07/27/19 @ 00:01 by Shirley Singh RN) Mother Cancer Father Hypertension Other No pertinent family history Social History: (Last Reviewed 07/27/19 @ 00:01 by Shirley Singh RN) Social History: retirement: Yes Marital status: / current occupational status: retired Highest education level completed: high school graduate Tobacco: Smoking Status: Former smoker Alcohol: alcohol intake: never Substance Use: substance use type: does not use Dietary Habits: caffeine: Yes Type: coffee Physical Exam - Physical Exam General Appearance: Present: severe distress, anxious, lethargic Head Exam: Present: normal inspection, no evidence of injury Eye Exam: Normal inspection: bilateral, PERRL: bilateral, EOMI: bilateral Ears, Nose, Throat: Present: normal ENT inspection, normal pharynx Neck: Present: normal inspection, nontender Respiratory: Present: chest tenderness, respiratory distress, accessory muscle use, crackles, rales, rhonchi Cardiovascular/Chest: Present: tachycardia, gallop/S3 Gastrointestinal/Abdominal: Present: normal bowel sounds, nontender, nondistended, soft, no organomegaly Back Exam: Present: normal inspection, normal range of motion, no CVA tenderness, no vertebral tenderness Extremity Exam: Present: normal except -, pedal edema, calf tenderness Neurological Exam: Present: alert Skin Exam: Present: normal color, warm/dry Lymphatic Exam: Present: no adenopathy Progress - Date and Time Seen: Date and Time: 01/09/20 18:43 patient has improved, case discussed with dr gao, to be admitted to hospital - Results and Orders Patient's Lab Results:: I have reviewed the patient's lab results. - Vital Signs Patient's Vital Signs:: I have reviewed the patient's vital signs. Vital Signs: Vital Signs 01/09/20 15:58 Temperature 37.8 C Pulse Rate 125 H Respiratory Rate 30 H Blood Pressure 155/87 H O2 Sat by Pulse Oximetry 99 - EKG EKG #1 EKG: supraventricular tachycardia - X-Ray X-Ray #1 X-Ray: chest - vascular congestion Interpretation: Interp. by me - Progress/Reassessment Chief Complaint: Dyspnea Progress:: Improved - Transfer of Care Expected Disposition: Admit Plan - Plan Plan: to admit to hospital Departure Clinical Impression: CHF (congestive heart failure), Respiratory failure with hypercapnia - Departure Disposition: Short Term Hospital Inpatient Condition: Serious
[2020-01-09 16:51] LABS: Urine Bilirubin Negative (NEGATIVE); Urine Ketone Negative (NEGATIVE); Urine Nitrite Negative (NEGATIVE); Urine Protein Negative (NEGATIVE); Urine Specific Gravity 1.015 SP.GR. (1.005-1.010); Urine Urobilinogen Normal (NORMAL)
[2020-01-09 16:58] LABS: Hematocrit 44.5 % (37.0-47.0); Mean Cell Volume 93.7 fl (78-100); Mean Corpuscular Hemoglobin 27.4 pg (27-31); Mean Corpuscular Hgb Conc 29.2 g/dl (32-36); Mean Platelet Volume 9.4 fl (8-12.5); Neutrophil # 12.7 K/mm3 (1.3-6.0); Neutrophil % 89.9 % (42-75.0); Platelet Count 284 K/mm3 (150-450); Red Blood Count 4.75 M/mm3 (4.2-5.4); Red Cell Distribution Width 12.5 % (11.5-14.0); White Blood Count 14.1 K/mm3 (4.0-10.5)
[2020-01-09 17:03] LABS: Urine Appearance Clear (CLEAR); Urine Bacteria 1+; Urine Blood 5 /ul (NEGATIVE); Urine Color Pale Yellow; Urine RBC 0-5 /hpf (0-5); Urine WBC None Seen /hpf (0-5)
[2020-01-09 17:13] LABS: Troponin I Less than 0.017 ng/mL (0.00-0.10)
[2020-01-09 17:14] LABS: ALT 21 U/L (19-67); AST 18 U/L (0-48); Albumin * 3.8 gm/dl (3.4-5.0); Alkaline Phosphatase * 105 U/L (50-170); Anion Gap 9.3 mmol/L (6.8-13.8); BNP * 177 pg/mL (5-550); Bilirubin, Total 0.7 mg/dL (0.0-1.1); Blood Urea Nitrogen 14 mg/dL (3-23); Ca. Corrected For Albumin 10.9 mg/dL (8.4-10.2); Calcium * 11.1 mg/dL (7.9-10.9); Carbon Dioxide 37.6 mmol/L (24-32.6); Chloride 94 mmol/L (97-106); Glucose * 109 mg/dL (70-110); Potassium 3.9 mmol/L (3.4-4.6); Sodium 137 mmol/L (132-142); Total Protein 8.2 gm/dL (6.2-8.2)
[2020-01-09] MEDS ORDERED: ACETAMINOPHEN 325 MG TABLET PO PRN (19:51)
[2020-01-09] MEDS ORDERED: ALBUTEROL SULFATE/IPRATROPIUM 3 ML NEBU IH PRN (19:51)
[2020-01-09] MEDS ORDERED: LEVALBUTEROL HCL 1.25 MG/3 ML AMPUL IH PRN (19:51)
[2020-01-09] MEDS ORDERED: DEXTROMETHORPHAN POLISTIREX SUS.ER.12H PO PRN (19:51)
[2020-01-09] MEDS ORDERED: MAGNESIUM HYDROXIDE 30 ML UDC PO PRN (19:51)
[2020-01-09] MEDS ORDERED: ENOXAPARIN SODIUM 40 MG/0.4 ML SYRG SC SCH (20:00)
[2020-01-09] MEDS ORDERED: CALCIUM CARBONATE 500 MG TAB.CHEW PO PRN (20:15)
--- NOTE | 2020-01-09 20:35 | HP ---
Chief Complaint - Chief Complaint Date of Service: 01/09/20 Time of Service: 20:18 Chief Complaint: Fever, cellulitis, shortness of breath, hypercarbia, leukocytosis History of Present Illness: Sandra Montgomery is a 79-year-old female resident at a local [facility] who became more dyspneic and confused and agitated. She was brought to the hospital and evaluated in ER and found to be in congestive heart failure. The chest x-ray suggest that it is mild with some mild cardiomegaly and increased pulmonary vascular markings. Her blood gases showed PO2 of 62 and a PCO2 of 59.9 on 6 L nonrebreather mask O2. She desaturates without her oxygen on. I have placed her on BiPAP and will recheck her blood gases again tomorrow morning. Her temperature on admission is 39 degrees and her blood pressure is 87/53. I will give her a 500 cc bolus of normal saline. She pulled her catheter out with the balloon inflated. She was quite nervous anxious and agitated but has quieted down a lot since applying the BiPAP. She seems to be resting comfortably with that. I suggested putting the Lemus catheter back in so we can monitor her output more accurately. I reconciled all her medications which there are many. Examination of her legs shows bilateral lower extremity edema below the knees with moderate to heavy crusting. There is erythema and palpable fever. There is an area on the right anterior min that appears to have been draining although it is not draining at this time. When the dressing was removed there was evidence of drainage there. Therefore I have chosen vancomycin over Rocephin. Blood cultures were drawn in the emergency room. I will repeat her lactic acid since she is febrile and hypotensive. Apparently she suffers from dementia as she is unable to correspond with me at this time. Medical History (Last Reviewed 01/09/20 @ 19:13 by Johnna Galvez RN) Osteoarthritis (arthritis due to wear and tear of joints) (Chronic) Depression (Acute) Bilateral bunions Bilateral knee pain Onset Date: Unknown Bilateral lower extremity edema COPD (chronic obstructive pulmonary disease) Chronic respiratory failure, unspecified whether with hypoxia or hypercapnia Dependence on supplemental oxygen Essential (primary) hypertension Flat feet, bilateral Gastro-esophageal reflux disease without esophagitis Hx of breast lump Hypothyroidism, unspecified Iron deficiency anemia, unspecified Major depressive disorder with single episode Morbid (severe) obesity due to excess calories Morbid (severe) obesity with alveolar hypoventilation Muscle weakness (generalized) Onychomycosis Other abnormalities of gait and mobility Other forms of dyspnea Other sleep apnea Pain in unspecified knee Peripheral vascular disease, unspecified Polyp of colon Toe pain, bilateral Unspecified cataract Vitamin B12 deficiency anemia due to intrinsic factor deficiency Vitamin D deficiency, unspecified Surgical History: Surgical History (Last Reviewed 01/09/20 @ 19:13 by Johnna Galvez RN) Hx laparoscopic cholecystectomy Hx of breast lump removal Hx of hernia repair Hx of hysterectomy Hx of total knee replacement Family History: Family History (Last Reviewed 01/09/20 @ 19:13 by Johnna Galvez RN) Mother Cancer Father Hypertension Other No pertinent family history Social History: (Last Reviewed 01/09/20 @ 19:13 by Johnna Galvez RN) Social History: penitentiary: Yes Marital status: / current occupational status: retired Highest education level completed: high school graduate Tobacco: Smoking Status: Former smoker Alcohol: alcohol intake: never Substance Use: substance use type: does not use Dietary Habits: caffeine: Yes Type: coffee Review Of Systems (GEN) - Review of Systems Generalized/Overall Review: Present: Weakness, Fever, Malaise EENTM: Present: No Symptoms Reported Respiratory: Present: Shortness of Breath Cardiac: Present: No Symptoms Reported Abdominal: Present: No Symptoms Reported Genitourinary: Present: Incontinent Musculoskeletal: Present: No Symptoms Reported Neurological: Present: Pre-existing Deficit - Diminished mental status. Skin: Present: Dryness, Change in Color - Bilateral lower extremities with erythema, palpable fever, moderate to heavy crusting, small area of drainage in the right anterior min, and morbid obesity Endocrine: Present: No Symptoms Reported Immunizations: IMMUNIZATION HX Immunizations Up to Date Yes History of Influenza Vaccine Yes Hx Pneumococcal Vaccination Yes Allergies/Adverse Reactions: Allergies Allergy/AdvReac Type Severity Reaction Status Date / Time cephalexin Allergy Severe RASH Verified 07/26/19 17:41 albuterol Allergy unknown Verified 07/26/19 17:41 cefdinir Allergy unknown Verified 07/26/19 17:41 Sulfa (Sulfonamide Allergy unknown Verified 07/26/19 17:41 Antibiotics) Home Medications: HOME MEDICATIONS acetaminophen 325 mg tablet 650 mg PO Q4H PRN tab 03/05/18 [Last Taken 04/30/19] aspirin 81 mg tablet,delayed release 81 mg PO DAILY 03/05/18 [Last Taken 05/02/19] gabapentin 300 mg capsule 300 mg PO TID 28 Days #84 cap 03/05/18 [Last Taken 05/02/19] magnesium hydroxide 400 mg/5 mL oral suspension 30 ml PO DAILY PRN ml 03/05/18 [Last Taken 09/11/18] metoprolol tartrate 25 mg tablet 25 mg PO BID 28 Days #56 tab 03/05/18 [Last Taken 05/02/19] tolterodine 1 mg tablet 1 mg PO BID 14 Days #28 tab 03/05/18 [Last Taken 05/02/19] tramadol 50 mg tablet 50 mg PO Q6H PRN 4 Days #16 tab 03/05/18 [Last Taken 04/30/19] Loratadine 10 mg PO DAILY 05/10/18 [Last Taken 05/02/19] fluticasone propionate 50 mcg/actuation nasal spray,suspension 2 spray NATE DAILY #15.8 g 07/30/18 [Last Taken 05/02/19] tramadol 50 mg tablet 50 mg PO DAILY #30 tab 09/06/18 [Last Taken 05/02/19] Levalbuterol Tartrate [Xopenex Hfa] 45 mcg INHALATION Q4H PRN 09/12/18 [Last Taken Unknown] polysaccharide iron complex 150 mg iron capsule 150 mg PO DAILY 09/22/18 [Last Taken 05/02/19] escitalopram oxalate 10 mg tablet 10 mg PO DAILY #30 tab 02/03/19 [Last Taken 05/02/19] Cholecalciferol (Vitamin D3) [Vitamin D3] 4,000 unit PO DAILY 04/09/19 [Last Taken 05/02/19] Cyanocobalamin (Vitamin B-12) [Vitamin B-12] 500 mcg SUBLINGUAL DAILY 04/09/19 [Last Taken 05/02/19] Dextromethorphan Polistirex [Delsym] 30 mg PO Q12H PRN 04/09/19 [Last Taken Unknown] Ipratropium/Albuterol Sulfate [Iprat-Albut 0.5-3(2.5) mg/3 ml] 3 ml INHALATION Q4H PRN 04/09/19 [Last Taken Unknown] Psyllium Husk/Aspartame [Metamucil Sugar-Free Powder] 2 tbs PO DAILY PRN 04/09/19 [Last Taken Unknown] Sucralfate [Carafate Suspension] 1 g PO ACHS #120 udc 04/09/19 [Last Taken 05/02/19] Omeprazole 40 mg PO DAILY 05/02/19 [Last Taken 05/02/19] Vitamin C 500 mg PO DAILY 05/02/19 [Last Taken 05/02/19] Glycopyrrolate/Formoterol Fum [Bevespi Aerosphere Inhaler] 2 puff INHALATION BID 06/29/19 [Last Taken Unknown] Acetaminophen [Tylenol] 325 mg PO HS #0 tab 07/29/19 [Last Taken Unknown] Acetaminophen [Tylenol] 650 mg PO Q6H PRN tab 07/29/19 [Last Taken Unknown] calcium carbonate 400 mg calcium (1,000 mg) chewable tablet 400 mg PO QID PRN #90 tab 11/04/19 [Last Taken Unknown] furosemide 40 mg tablet 80 mg PO DAILY 28 Days #56 tab 11/25/19 [Last Taken Un known] oxycodone-acetaminophen 2.5 mg-325 mg tablet 1 tab PO HS #30 tab 12/31/19 [Last Taken Unknown] Exam - Exam Vital Signs: Vital Signs - Last Taken Temp 37.8 C 01/09/20 16:03 Pulse 121 H 01/09/20 19:59 Resp 24 H 01/09/20 19:59 BP 114/41 01/09/20 19:24 Pulse Ox 96 01/09/20 19:59 Constitutional: Present: Well developed, Well nourished, Elderly, Morbidly obese ENT Exam: Present: normal ENT inspection Eye Exam: bilateral eye: normal inspection, PERRL, EOMI Neck: Present: non-tender, supple, limited range of motion Back Exam: Present: normal inspection Breasts: Present: Exam deferred Respiratory: Present: decreased breath sounds Cardiovascular/Chest: Present: regular rate, rhythm, no gallop, no JVD, other - Pulses are weak, edema Peripheral Pulses: carotid (R): 2+, carotid (L): 2+, dorsalis-pedis (R): 1+, dorsalis-pedis (L): 1+, radial (R): 1+, radial (L): 1+ Abdomen: Present: Normal bowel sounds, soft, nontender, nondistended, no rebound tenderness, no hepatospenomegaly, no masses, obese /Rectal: Present: Exam deferred Extremity: Present: inflammation, lower extremity edema, leg pain, pedal edema, slow capillary refill, swelling Skin Exam: Present: normal color - Except for the erythema in the bilateral lower extremities Lymphatic: Present: no adenopathy 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 Poor mental status. Appearance: Present: neat, impaired insight, impaired recent memory, impaired remote memory Eye contact: Present: other - Patient is unable to cooperate with this exam. Thoughts: Present: incoherent Diagnostic Studies: Abnormal Lab Results 01/09/20 01/09/20 01/09/20 Range/Units 16:40 16:40 16:40 WBC 14.1 H (4.0-10.5) K/mm3 MCHC 29.2 L (32-36) g/dl Immature Gran % (Auto) 0.60 H (0.001-0.429) % Immature Gran # (Auto) 0.08 H (0.000-0.0310) K/mm3 Neutrophils % 89.9 H (42-75.0) % Lymphocytes % 6.2 L (20-51) % Neutrophils # 12.7 H (1.3-6.0) K/mm3 Lymphocytes # 0.87 L (1.5-3.5) k/mm3 pCO2 (32.0-45.0) mmHg pO2 (83.0-108.0) mmHg HCO3 (21.0-28.0) mmol/L Total CO2 (19.0-24.0) mmol/L Base Excess (-2.0-3.0) mmol/L ABG O2 Sat (Measured) (94.0-98.0) % Chloride 94 L (97-106) mmol/L Carbon Dioxide 37.6 H (24-32.6) mmol/L Calcium 11.1 H (7.9-10.9) mg/dL Calcium Adj for Albumin 10.9 H (8.4-10.2) mg/dL Urine Blood 5 H (NEGATIVE) /ul Ur Epithelial Cells 5-10 H (0-5) /hpf Urine Bacteria 1+ H (NONE) 01/09/20 Range/Units 17:50 WBC (4.0-10.5) K/mm3 MCHC (32-36) g/dl Immature Gran % (Auto) (0.001-0.429) % Immature Gran # (Auto) (0.000-0.0310) K/mm3 Neutrophils % (42-75.0) % Lymphocytes % (20-51) % Neutrophils # (1.3-6.0) K/mm3 Lymphocytes # (1.5-3.5) k/mm3 pCO2 59.9 H (32.0-45.0) mmHg pO2 63.0 L (83.0-108.0) mmHg HCO3 35.6 H (21.0-28.0) mmol/L Total CO2 37.4 H (19.0-24.0) mmol/L Base Excess 8.6 H (-2.0-3.0) mmol/L ABG O2 Sat (Measured) 91.4 L (94.0-98.0) % Chloride (97-106) mmol/L Carbon Dioxide (24-32.6) mmol/L Calcium (7.9-10.9) mg/dL Calcium Adj for Albumin (8.4-10.2) mg/dL Urine Blood (NEGATIVE) /ul Ur Epithelial Cells (0-5) /hpf Urine Bacteria (NONE) Laboratory Results WBC 14.1 K/mm3 (4.0-10.5) H 01/09/20 16:40 RBC 4.75 M/mm3 (4.2-5.4) 01/09/20 16:40 Hgb 13.0 gm/dL (12.5-16.0) 01/09/20 16:40 Hct 44.5 % (37.0-47.0) 01/09/20 16:40 MCV 93.7 fl (78-100) 01/09/20 16:40 MCH 27.4 pg (27-31) 01/09/20 16:40 MCHC 29.2 g/dl (32-36) L 01/09/20 16:40 RDW 12.5 % (11.5-14.0) 01/09/20 16:40 Plt Count 284 K/mm3 (150-450) 01/09/20 16:40 MPV 9.4 fl (8-12.5) 01/09/20 16:40 Immature Gran % (Auto) 0.60 % (0.001-0.429) H 01/09/20 16:40 Immature Gran # (Auto) 0.08 K/mm3 (0.000-0.0310) H 01/09/20 16:40 Neutrophils % 89.9 % (42-75.0) H 01/09/20 16:40 Lymphocytes % 6.2 % (20-51) L 01/09/20 16:40 Monocytes % 1.8 % (0.0-9) 01/09/20 16:40 Eosinophils % 1.3 % (0.0-3.0) 01/09/20 16:40 Basophils % 0.2 % (0.0-1.0) 01/09/20 16:40 Nucleated RBC % 0.0 k/mm3 (0-1) 01/09/20 16:40 Neutrophils # 12.7 K/mm3 (1.3-6.0) H 01/09/20 16:40 Lymphocytes # 0.87 k/mm3 (1.5-3.5) L 01/09/20 16:40 Monocytes # 0.3 k/mm3 (0.0-1.0) 01/09/20 16:40 Eosinophils # 0.2 k/mm3 (0.0-0.7) 01/09/20 16:40 Absolute Basophils 0.0 k/mm3 (0.0-0.1) 01/09/20 16:40 pCO2 59.9 mmHg (32.0-45.0) H 01/09/20 17:50 pO2 63.0 mmHg (83.0-108.0) L 01/09/20 17:50 HCO3 35.6 mmol/L (21.0-28.0) H 01/09/20 17:50 Total CO2 37.4 mmol/L (19.0-24.0) H 01/09/20 17:50 Base Excess 8.6 mmol/L (-2.0-3.0) H 01/09/20 17:50 ABG pH 7.39 (7.35-7.45) 01/09/20 17:50 ABG O2 Sat (Measured) 91.4 % (94.0-98.0) L 01/09/20 17:50 Sodium 137 mmol/L (132-142) 01/09/20 16:40 Plasma Sodium 137 mmol/L (130-142) 01/09/20 16:40 Potassium 3.9 mmol/L (3.4-4.6) 01/09/20 16:40 Chloride 94 mmol/L (97-106) L 01/09/20 16:40 Carbon Dioxide 37.6 mmol/L (24-32.6) H 01/09/20 16:40 Anion Gap 9.3 mmol/L (6.8-13.8) 01/09/20 16:40 BUN 14 mg/dL (3-23) D 01/09/20 16:40 Creatinine 0.70 mg/dL (0.4-1.4) 01/09/20 16:40 Est GFR (Non-Af Amer) 86 mL/min (60-130) 01/09/20 16:40 BUN/Creatinine Ratio 20.0 (9.0-21.6) 01/09/20 16:40 Random Glucose 109 mg/dL (70-110) 01/09/20 16:40 Lactic Acid, Venous 2.0 mmol/L (0.4-2.0) 01/09/20 16:40 Calcium 11.1 mg/dL (7.9-10.9) H 01/09/20 16:40 Calcium Adj for Albumin 10.9 mg/dL (8.4-10.2) H 01/09/20 16:40 Total Bilirubin 0.7 mg/dL (0.0-1.1) 01/09/20 16:40 AST 18 U/L (0-48) 01/09/20 16:40 ALT 21 U/L (19-67) 01/09/20 16:40 Alkaline Phosphatase 105 U/L (50-170) 01/09/20 16:40 Troponin I Less than 0.017 ng/mL (0.00-0.10) 01/09/20 16:40 B-Natriuretic Peptide 177 pg/mL (5-550) 01/09/20 16:40 Total Protein 8.2 gm/dL (6.2-8.2) 01/09/20 16:40 Albumin 3.8 gm/dl (3.4-5.0) 01/09/20 16:40 Urine Color Pale yellow 01/09/20 16:40 Urine Appearance Clear (CLEAR) 01/09/20 16:40 Urine pH 6.0 pH (5.0-7.0) 01/09/20 16:40 Ur Specific [place] 1.015 SP.GR. (1.005-1.010) 01/09/20 16:40 Urine Protein Negative mg/dL (NEGATIVE) 01/09/20 16:40 Urine Glucose (UA) Negative mg/dL (NEGATIVE) 01/09/20 16:40 Urine Ketones Negative mg/dL (NEGATIVE) 01/09/20 16:40 Urine Blood 5 /ul (NEGATIVE) H 01/09/20 16:40 Urine Nitrate Negative (NEGATIVE) 01/09/20 16:40 Urine Bilirubin Negative mg/dl (NEGATIVE) 01/09/20 16:40 Urine Urobilinogen Normal EU/dl (NORMAL) 01/09/20 16:40 Ur Leukocyte Esterase Negative /ul (NEGATIVE) 01/09/20 16:40 Urine RBC 0-5 /hpf (0-5) 01/09/20 16:40 Urine WBC None seen /hpf (0-5) 01/09/20 16:40 Ur Epithelial Cells 5-10 /hpf (0-5) H 01/09/20 16:40 Urine Bacteria 1+ (NONE) H 01/09/20 16:40 Urine Culture Comments No culture indicated 01/09/20 16:40 Assessment/Plan - Narrative Narrative: 1. Give 500 cc bolus to see if her pressure will improve 2. Start vancomycin and have pharmacy manage the dose 3. Continue on BiPAP and repeat blood gases tomorrow morning 4. A.m. lab ordered 5. Meds have been reconciled. 6. Patient is a DO NOT RESUSCITATE status. - Assessment/Plan (1) Hypercapnic respiratory failure Problem: Resolved Qualifiers: (2) MRSA (methicillin resistant staph aureus) culture positive Problem: Acute (3) Venous stasis dermatitis of both lower extremities Problem: Acute (4) COPD (chronic obstructive pulmonary disease) Problem: Chronic Qualifiers: COPD type: chronic bronchitis Chronic bronchitis type: simple Qualified Code(s): J41.0 - Simple chronic bronchitis (5) Dependence on continuous supplemental oxygen Problem: Chronic (6) Morbid obesity with BMI of 50.0-59.9, adult Problem: Chronic (7) Venous stasis dermatitis of both lower extremities Problem: Chronic (8) CHF (congestive heart failure) Problem: Chronic Qualifiers: Heart failure type: diastolic Heart failure chronicity: acute on chronic Qualified Code(s): I50.33 - Acute on chronic diastolic (congestive) heart failure
[2020-01-09] MEDS: NORMAL SALINE 1,000 ML IV PRN (20:54)
[2020-01-09] MEDS ORDERED: ACETAMINOPHEN 325 MG TABLET PO SCH ×2 (21:00)
[2020-01-09] MEDS ORDERED: oxyCODONE HCL 5 MG TABLET PO SCH (21:00)
[2020-01-09] MEDS ORDERED: VANCOMYCIN/WATER FOR INJ (PEG) 2 GM/400 ML BAG IV ONE (21:00)
[2020-01-09] MEDS: METOPROLOL TARTRATE 25 MG TABLET PO SCH (21:11)
[2020-01-10] MEDS: ACETAMINOPHEN 325 MG TABLET PO PRN ×2 (04:47→04:55)
[2020-01-10] MEDS ORDERED: NORMAL SALINE 500 ML IV PRN (05:15)
[2020-01-10] MEDS: ACETAMINOPHEN 1,000 MG/100 ML BTL IV PRN ×2 (05:42→15:02)
[2020-01-10 06:34] LABS: Hematocrit 37.1 % (37.0-47.0); Hemoglobin 11.1 gm/dL (12.5-16.0); Mean Corpuscular Hemoglobin 27.8 pg (27-31); Mean Corpuscular Hgb Conc 29.9 g/dl (32-36); Platelet Count 218 K/mm3 (150-450); Red Blood Count 3.99 M/mm3 (4.2-5.4); White Blood Count 13.2 K/mm3 (4.0-10.5)
[2020-01-10 06:52] LABS: Total Cells Counted 100
[2020-01-10] MEDS ORDERED: PANTOPRAZOLE SODIUM 40 MG TABLET.EC PO SCH (07:00)
[2020-01-10 07:17] LABS: Albumin * 2.4 gm/dl (3.4-5.0); Anion Gap 14.6 mmol/L (6.8-13.8); Bilirubin, Total 0.9 mg/dL (0.0-1.1); Ca. Corrected For Albumin 10.8 mg/dL (8.4-10.2); Calcium * 9.8 mg/dL (7.9-10.9); Carbon Dioxide 29.8 mmol/L (24-32.6); Potassium 3.4 mmol/L (3.4-4.6); Total Protein 5.2 gm/dL (6.2-8.2)
[2020-01-10 07:44] LABS: Atypical (Reactive) Lymph 1 % (0-2); Band 42 % (0-2.0); Immature Granulocyte 7 (0-1); Lymphocyte 1 % (20-51); Monocyte 3 % (0-9); Neutrophil 46 % (42-75); Neutrophil # 6.1 K/mm3 (1.3-6.0)
[2020-01-10 07:50] LABS: Hypochromia 1+; Platelet Estimate Normal (NORMAL)
[2020-01-10] MEDS ORDERED: FUROSEMIDE 80 MG TABLET PO SCH (09:00)
[2020-01-10] MEDS ORDERED: FUROSEMIDE 40 MG TABLET PO SCH (09:00)
[2020-01-10] MEDS ORDERED: TOLTERODINE TARTRATE 2 MG CAPSULE PO SCH (09:00)
[2020-01-10] MEDS ORDERED: LORATADINE 10 MG TABLET PO SCH (09:00)
[2020-01-10] MEDS ORDERED: ASPIRIN 81 MG TABLET.DR PO SCH (09:00)
[2020-01-10] MEDS ORDERED: FLUTICASONE PROPIONATE 120 SPRAY INHALER NS SCH (09:00)
[2020-01-10] MEDS ORDERED: ESCITALOPRAM OXALATE 10 MG TAB PO SCH (09:00)
[2020-01-10] MEDS ORDERED: CHOLECALCIFEROL 1,000 UNIT CAPSULE PO SCH (09:00)
[2020-01-10] MEDS ORDERED: NORMAL SALINE 1,000 ML IV PRN ×2 (09:46)
[2020-01-10] MEDS: GABAPENTIN 300 MG CAPSULE PO SCH ×3 (10:12→17:51)
[2020-01-10] MEDS: METOPROLOL TARTRATE 25 MG TABLET PO SCH (10:12)
[2020-01-10] MEDS: NORMAL SALINE 1,000 ML IV PRN (10:13)
[2020-01-10] MEDS ORDERED: VANCOMYCIN/WATER FOR INJ (PEG) 1.5 GM/300 ML BAG IV SCH (11:00)
[2020-01-10] MEDS ORDERED: DOBUTAMINE HCL IV PRN (12:58)
[2020-01-10] MEDS ORDERED: D5W IV PRN (12:58)
[2020-01-10] MEDS ORDERED: PANTOPRAZOLE SODIUM 40 MG in NORMAL SALINE 100 ML IV SCH (13:00)
[2020-01-10 15:12] LABS: Anion Gap 11.5 mmol/L (6.8-13.8); BUN/Creatinine Ratio 13.1 (9.0-21.6); Calcium * 9.9 mg/dL (7.9-10.9); Carbon Dioxide 33.3 mmol/L (24-32.6); Estimated Creat Clear 14.8; Potassium 3.8 mmol/L (3.4-4.6)
[2020-01-10 15:14] LABS: Prothrombin Time (Patient) 12.1 Seconds (9.1-10.7)
[2020-01-10 15:18] LABS: INR 1.23 INR (0.92-1.08); Partial Thrombolplastin Time 33.6 Seconds (24-32)
[2020-01-10] MEDS ORDERED: CIPROFLOXACIN IN 5 % DEXTROSE 400 MG/200 ML BAG IV SCH (16:45)
[2020-01-10] MEDS ORDERED: NORMAL SALINE 1,000 ML IV ONE (17:05)
--- NOTE | 2020-01-10 17:23 | CONS ---
[facility] - General Date of Service: 01/10/20 Narrative: 79-year-old female with a past medical history of COPD, chronic respiratory failure, oxygen dependent, hypertension, depression, GERD, bilateral lower extremity edema, hypothyroidism, iron deficiency anemia, morbid obesity, osteoarthritis, peripheral vascular disease [facility] with severe respiratory distress. Chest x-ray showed mild pulmonary vascular congestion, interstitial pulmonary edema or infection, no consolidation. She reduce received a dose of 80 mg of IV Lasix in the emergency room and was admitted for acute respiratory failure. Overnight she developed hypotension and has received 1.5 L of IV fluids. She also had a fever, blood work this morning was positive for GFR of 27, creatinine of 1.92, her creatinine on admission was 0.7 and GFR was 86. Creatinine repeated this afternoon was 2.45 and GFR dropped to 20. She is not making any urine and bladder scan only shows 12 cc of fluid. Lactic acid has bumped up to 4.9. She is hypotensive and currently her pressure is not being read by the monitor. I checked her blood pressure via palpation and her systolic blood pressure was 60. I suspect her kidneys are not being adequately perfused in order for her to make urine. Plan: We are unable to give the patient pressors because we do not have staffing for the SCU. This patient is critically ill and needs urgent higher level of care. I recommend that she be transferred to a facility with an ICU and nephrology. I have spoken with Dr. Boone regarding my recommendations. - History of Present Illness Allergies/Adverse Reactions: Allergies cephalexin Allergy (Severe, Verified 07/26/19 17:41) RASH albuterol Allergy (Verified 07/26/19 17:41) unknown cefdinir Allergy (Verified 07/26/19 17:41) unknown Sulfa (Sulfonamide Antibiotics) Allergy (Verified 07/26/19 17:41) unknown Home Medications: Home Medications Medication Instructions Recorded Last Taken acetaminophen 325 mg tablet 650 mg PO Q6H PRN tab 03/05/18 01/09/20 14:02 aspirin 81 mg tablet,delayed 81 mg PO DAILY 03/05/18 01/09/20 06:00 release gabapentin 300 mg capsule 300 mg PO TID 28 Days #84 cap 03/05/18 01/09/20 11:00 magnesium hydroxide 400 mg/5 mL 30 ml PO DAILY PRN ml 03/05/18 09/11/18 oral suspension metoprolol tartrate 25 mg tablet 25 mg PO BID 28 Days #56 tab 03/05/18 01/09/20 06:00 tolterodine 1 mg tablet 1 mg PO BID 14 Days #28 tab 03/05/18 01/09/20 06:00 tramadol 50 mg tablet 50 mg PO Q6H PRN 4 Days #16 tab 03/05/18 01/09/20 13:48 Loratadine 10 mg PO DAILY 05/10/18 01/09/20 06:00 fluticasone propionate 50 2 spray NATE DAILY #15.8 g 07/30/18 01/09/20 06:00 mcg/actuation nasal spray,suspension tramadol 50 mg tablet 50 mg PO DAILY #30 tab 09/06/18 01/09/20 06:00 Levalbuterol Tartrate [Xopenex Hfa] 45 mcg INHALATION Q4H PRN 09/12/18 Unknown polysaccharide iron complex 150 mg 150 mg PO DAILY 09/22/18 01/09/20 06:00 iron capsule Cholecalciferol (Vitamin D3) 4,000 unit PO DAILY 04/09/19 01/09/20 06:00 [Vitamin D3] Cyanocobalamin (Vitamin B-12) 500 mcg SUBLINGUAL DAILY 04/09/19 01/09/20 06:00 [Vitamin B-12] Dextromethorphan Polistirex 30 mg PO Q12H PRN 04/09/19 Unknown [Delsym] Ipratropium/Albuterol Sulfate 3 ml INHALATION Q4H PRN 04/09/19 Unknown [Iprat-Albut 0.5-3(2.5) mg/3 ml] Psyllium Husk/Aspartame [Metamucil 2 tbs PO DAILY PRN 04/09/19 Unknown Sugar-Free Powder] Sucralfate [Carafate Suspension] 1 g PO ACHS #120 udc 04/09/19 01/09/20 11:00 Omeprazole 40 mg PO DAILY 05/02/19 01/09/20 06:00 Vitamin C 500 mg PO DAILY 05/02/19 01/09/20 06:00 Glycopyrrolate/Formoterol Fum 2 puff INHALATION BID 06/29/19 01/09/20 06:00 [Bevespi Aerosphere Inhaler] Acetaminophen [Tylenol] 325 mg PO HS #0 tab 07/29/19 01/08/20 20:00 Acetaminophen [Tylenol] 650 mg PO Q6H PRN tab 07/29/19 Unknown calcium carbonate 400 mg calcium 400 mg PO QID PRN #90 tab 11/04/19 Unknown (1,000 mg) chewable tablet furosemide 40 mg tablet 80 mg PO DAILY 28 Days #56 tab 11/25/19 01/09/20 13:00 oxycodone-acetaminophen 2.5 mg-325 1 tab PO HS #30 tab 12/31/19 01/08/20 22:30 mg tablet Escitalopram Oxalate 5 mg PO DAILY 01/09/20 01/09/20 06:00 Medications - Medications Current Medications: Current Medications Acetaminophen (Tylenol) 325 mg PO HS [facility]ON Stop: 02/08/20 21:01 Last Admin: 01/09/20 21:14 Dose: 325 mg Documented by: Aspirin (Aspirin Enteric Coated) 81 mg PO DAILY [facility] Stop: 02/09/20 09:01 Last Admin: 01/10/20 10:10 Dose: Not Given Documented by: Cholecalciferol (Vitamin D) 4,000 unit PO DAILY [facility] Stop: 02/09/20 09:01 Last Admin: 01/10/20 10:12 Dose: Not Given Documented by: Enoxaparin Sodium (Lovenox) 40 mg SC Q24H [facility] Stop: 02/08/20 20:01 Last Admin: 01/09/20 21:10 Dose: 40 mg Documented by: Escitalopram Oxalate (Lexapro) 10 mg PO DAILY [facility] Stop: 02/09/20 09:01 Last Admin: 01/10/20 10:12 Dose: Not Given Documented by: Fluticasone Propionate (Flonase) 2 spray NS DAILY [facility] Stop: 02/09/20 09:01 Last Admin: 01/10/20 10:11 Dose: Not Given Documented by: Furosemide (Lasix) 80 mg PO DAILY [facility] Stop: 02/09/20 09:01 Last Admin: 01/10/20 10:11 Dose: Not Given Documented by: Gabapentin (Neurontin) 300 mg PO TID [facility] Stop: 02/09/20 09:01 Last Admin: 01/10/20 13:00 Dose: Not Given Documented by: Sodium Chloride (Sodium Chloride 0.9%) 1,000 mls @ 250 mls/hr IV .Q4H PRN PRN Reason: HYDRATION Last Admin: 01/10/20 10:13 Dose: 250 mls/hr Documented by: VANCOMYCIN/WATER FOR INJ (PEG) (Vancomycin) 1.5 gm in 300 mls @ 100 mls/hr IV Q24H [facility]; Protocol Stop: 02/09/20 11:01 Last Infusion: 01/10/20 13:21 Dose: Infused Documented by: Acetaminophen (Ofirmev) 1,000 mg in 100 mls @ 400 mls/hr IV Q4H PRN PRN Reason: Pain/Fever Stop: 02/09/20 05:12 Last Admin: 01/10/20 15:02 Dose: 400 mls/hr Documented by: Sodium Chloride (Sodium Chloride 0.9%) 500 mls @ 250 mls/hr IV .Q2H PRN PRN Reason: HYDRATION Stop: 02/09/20 05:16 Last Infusion: 01/10/20 08:45 Dose: Infused Documented by: Pantoprazole Sodium 40 mg/ (Sodium Chloride) 100 mls @ 400 mls/hr IV Q24H [facility] Stop: 02/09/20 13:01 Last Infusion: 01/10/20 15:39 Dose: Infused Documented by: Loratadine (Claritin) 10 mg PO DAILY [facility] Stop: 02/09/20 09:01 Last Admin: 01/10/20 10:11 Dose: Not Given Documented by: Metoprolol Tartrate (Lopressor) 25 mg PO BID [facility] Stop: 02/08/20 21:01 Last Admin: 01/10/20 10:12 Dose: Not Given Documented by: Oxycodone HCl (Oxycodone) 2.5 mg PO HS [facility] Stop: 02/08/20 21:01 Last Admin: 01/09/20 21:11 Dose: 2.5 mg Documented by: Tolterodine Tartrate (Detrol La) 2 mg PO DAILY [facility] Stop: 02/09/20 09:01 Last Admin: 01/10/20 10:11 Dose: Not Given Documented by: Review of Systems - Review of Systems Generalized/Overall Review: Present: Fever Respiratory: Present: Shortness of Breath Misc: All systems neg except as marked Physical Examination - Exam Vital Signs: Vital Signs - Last Taken Temp 37.8 C 01/10/20 16:17 Pulse 107 H 01/10/20 16:17 Resp 23 H 01/10/20 16:17 BP 98/42 01/10/20 16:17 Pulse Ox 95 01/10/20 16:17 O2 Oxygen Delivery Method Bi-pap Constitutional: Present: Well developed, Well nourished, Elderly, Morbidly obese. Absent: Alert Neck: Present: supple. Absent: lymphadenopathy (R), lymphadenopathy (L) Respiratory: Present: lungs clear, no accessory muscle use, No wheezing. Absent: crackles, rhonchi Cardiovascular/Chest: Present: normal peripheral pulses, regular rate, rhythm, no murmur, edema - Bilateral lower extremities Peripheral Pulses: dorsalis-pedis (R): 1+, dorsalis-pedis (L): 1+ Abdomen: Present: Normal bowel sounds, soft Extremity: Present: lower extremity edema - Bilateral lower extremities Skin Exam: Present: warm/dry, other - Erythema of left lower extremity Eye contact: Absent: good eye contact - Results and Findings: Lab/Microbiology results last 24 hrs: Abnormal/Pending Laboratory Last 24 HRS 01/10/20 01/10/20 01/10/20 14:58 14:58 14:58 WBC RBC Hgb MCHC Immature Gran % (Auto) Immature Gran # (Auto) Neutrophils % Band Neuts % (Manual) Lymphocytes % Lymphocytes % (Manual) Immature Granulocytes Neutrophils # Neutrophils # (Manual) Lymphocytes # Lymphocytes # (Manual) PT 12.1 H INR (Anticoag Therapy) 1.23 H PTT ([place]) 33.6 H D-Dimer 3.96 H pCO2 pO2 HCO3 Total CO2 Base Excess ABG O2 Sat (Measured) Chloride 95 L Carbon Dioxide 33.3 H Anion Gap BUN 32 H Creatinine 2.45 H D Est GFR (Non-Af Amer) 20 L D Lactic Acid, Venous Calcium Calcium Adj for Albumin Total Protein Albumin 01/10/20 01/10/20 01/10/20 12:40 10:02 06:31 WBC RBC Hgb MCHC Immature Gran % (Auto) Immature Gran # (Auto) Neutrophils % Band Neuts % (Manual) Lymphocytes % Lymphocytes % (Manual) Immature Granulocytes Neutrophils # Neutrophils # (Manual) Lymphocytes # Lymphocytes # (Manual) PT INR (Anticoag Therapy) PTT ([place]) D-Dimer pCO2 pO2 HCO3 Total CO2 Base Excess ABG O2 Sat (Measured) Chloride 96 L Carbon Dioxide Anion Gap 14.6 H BUN Creatinine 1.92 H D Est GFR (Non-Af Amer) 27 L D Lactic Acid, Venous 4.5 H* 4.9 H* Calcium Calcium Adj for Albumin 10.8 H Total Protein 5.2 L Albumin 2.4 L 01/10/20 01/10/20 01/09/20 06:31 06:00 17:50 WBC 13.2 H RBC 3.99 L Hgb 11.1 L MCHC 29.9 L Immature Gran % (Auto) Immature Gran # (Auto) Neutrophils % Band Neuts % (Manual) 42 H Lymphocytes % Lymphocytes % (Manual) 1 L Immature Granulocytes 7 H Neutrophils # Neutrophils # (Manual) 6.1 H Lymphocytes # Lymphocytes # (Manual) 0.1 L PT INR (Anticoag Therapy) PTT ([place]) D-Dimer pCO2 57.3 H 59.9 H pO2 61.2 L 63.0 L HCO3 32.2 H 35.6 H Total CO2 34.0 H 37.4 H Base Excess 5.5 H 8.6 H ABG O2 Sat (Measured) 90.2 L 91.4 L Chloride Carbon Dioxide Anion Gap BUN Creatinine Est GFR (Non-Af Amer) Lactic Acid, Venous Calcium Calcium Adj for Albumin Total Protein Albumin 01/09/20 01/09/20 16:40 16:40 WBC 14.1 H RBC Hgb MCHC 29.2 L Immature Gran % (Auto) 0.60 H Immature Gran # (Auto) 0.08 H Neutrophils % 89.9 H Band Neuts % (Manual) Lymphocytes % 6.2 L Lymphocytes % (Manual) Immature Granulocytes Neutrophils # 12.7 H Neutrophils # (Manual) Lymphocytes # 0.87 L Lymphocytes # (Manual) PT INR (Anticoag Therapy) PTT ([place]) D-Dimer pCO2 pO2 HCO3 Total CO2 Base Excess ABG O2 Sat (Measured) Chloride 94 L Carbon Dioxide 37.6 H Anion Gap BUN Creatinine Est GFR (Non-Af Amer) Lactic Acid, Venous Calcium 11.1 H Calcium Adj for Albumin 10.9 H Total Protein Albumin Culture 01/09/20 16:57 Blood Culture - Preliminary Blood Ruling Out Pathogen 01/09/20 16:40 Blood Culture - Preliminary Blood Ruling Out Pathogen - Assessments/Findings (1) Hypotension Problem: Acute (2) SAE (acute kidney injury) Problem: Acute (3) Oligouria Problem: Acute (4) Respiratory failure with hypercapnia Problem: Acute (5) Sepsis associated hypotension Problem: Acute (6) Cellulitis Problem: Acute Qualifiers: Site of cellulitis: extremity Site of cellulitis of extremity: lower extremity Laterality: left Qualified Code(s): L03.116 - Cellulitis of left lower limb (7) Dependence on continuous supplemental oxygen Problem: Chronic (8) Morbid obesity with BMI of 50.0-59.9, adult Problem: Chronic
--- NOTE | 2020-01-10 17:28 | DS ---
Transfer Discharge Summary - Diagnosis(s)/Problems (1) Sepsis associated hypotension Problem: Acute (2) Hypercapnic respiratory failure Problem: Acute (3) MRSA (methicillin resistant staph aureus) culture positive Problem: Acute (4) Venous stasis dermatitis of both lower extremities Problem: Acute (5) COPD (chronic obstructive pulmonary disease) Problem: Chronic (6) Dependence on continuous supplemental oxygen Problem: Chronic (7) Morbid obesity with BMI of 50.0-59.9, adult Problem: Chronic (8) Venous stasis dermatitis of both lower extremities Problem: Chronic (9) CHF (congestive heart failure) Problem: Chronic (10) Sepsis Problem: Resolved - Course Description of Stay: Sandra Montgomery is a 79-year-old female patient who presented to the emergency room with tachypnea, hypoxemia, and hypercarbia. The work-up in the emergency room revealed that she was in respiratory failure. Blood gases showed a pH of 7.37 with a PCO2 of 59 and a PO2 of 60 on ABGs. Her O2 sat was 90% on 6 L per nonrebreather mask. She was started on BiPAP at 35% FiO2. That was decreased to 30% FiO2 because of improved O2 saturation readings. Her white count was elevated at 14,000And this morning was at 13,200. She has a 42% bandemia. Her lactic acid level initially was normal at 2.0. However she developed hypotension, acute kidney injury, and blood cultures x2 demonstrated a gram-negative cocci in chains primarily. Her nasal MRSA swab was positive. On my exam I found her legs to be red and swollen and hot to touch below the knees. I believe this to probably be the source of her infection. There was one area that was oozing over the lower anterior min of the right leg. I started her on vancomycin. Repeat lactic acid this morning showed it had increased to 4.5 and then the reflex is 4.9. I have added Cipro per the recommendation of Safia Ashley Pharm.D. Her creatinineIn ER was normal. This morning's EGFR is 27 and the creatinine had increased to 1.92. I repeated the BMP at 1500 and the creatinine has increased to 2.45 and the lactic acid has increased to 4.9. Because she had a history of CHF I have been careful about fluid replacement although I have been giving it at 250 cc/h through the night and this morning and afternoon. She is still a liter and a half behind and I have just ordered a full bolus of a liter. Her blood pressure had improved with rehydration. She has remained an uric. Attempts at placing a Lemus catheter have failed. It was initially placed and then she pulled it out with the balloon inflated and 3 subsequent attempts at replacing the catheter have all failed. I ordered Protonix for her and ordered dobutamine as a pressor but they were not compatible. Dr. Ashley recommended I changed to Pepcid. I had Dr. Banks see her in consultation [place]. She believes that Mrs. Montgomery needs to be in an ICU. Shelbie Howell RN has spoken with the family and they desire to have her transferred as well. Therefore she will be transferred to [facility] for further care. She has remained anuric. She did have a bowel movement earlier today. Also her d-dimer is elevated at 3.96. The PT was 12.1 with an INR 1.23. The PTT is 33.6. Her hemoglobin is 11.1 g. I spoke with Dr. Landrum who is the hospitalist at [facility] this evening and she is graciously agreed to accept this patient in transfer. It was verified that they had an ICU bed available for her. Procedures Performed: none - Results and Findings Results and Findings: Laboratory Results - last 24 hr 01/09/20 01/09/20 01/09/20 16:40 16:40 16:40 WBC 14.1 H RBC 4.75 Hgb 13.0 Hct 44.5 MCV 93.7 MCH 27.4 MCHC 29.2 L RDW 12.5 Plt Count 284 MPV 9.4 Immature Gran % (Auto) 0.60 H Immature Gran # (Auto) 0.08 H Neutrophils % 89.9 H Neutrophils % (Manual) Band Neuts % (Manual) Lymphocytes % 6.2 L Lymphocytes % (Manual) Monocytes % 1.8 Monocytes % (Manual) Eosinophils % 1.3 Basophils % 0.2 Nucleated RBC % 0.0 Immature Granulocytes Neutrophils # 12.7 H Neutrophils # (Manual) Lymphocytes # 0.87 L Lymphocytes # (Manual) Monocytes # 0.3 Monocytes # (Manual) Eosinophils # 0.2 Absolute Basophils 0.0 Atypic/Reactive Lymphs Platelet Estimate Hypochromasia ESR PT INR (Anticoag Therapy) PTT ([facility]) D-Dimer pCO2 pO2 HCO3 Total CO2 Base Excess ABG pH ABG O2 Sat (Measured) Sodium 137 Plasma Sodium 137 Potassium 3.9 Chloride 94 L Carbon Dioxide 37.6 H Anion Gap 9.3 BUN 14 D Creatinine 0.70 Est GFR (Non-Af Amer) 86 BUN/Creatinine Ratio 20.0 Random Glucose 109 Lactic Acid, Venous 2.0 Calcium 11.1 H Calcium Adj for Albumin 10.9 H Total Bilirubin 0.7 AST 18 ALT 21 Alkaline Phosphatase 105 Troponin I Less than 0.017 B-Natriuretic Peptide 177 Total Protein 8.2 Albumin 3.8 01/09/20 01/10/20 01/10/20 17:50 06:00 06:31 WBC 13.2 H RBC 3.99 L Hgb 11.1 L Hct 37.1 MCV 93.0 MCH 27.8 MCHC 29.9 L RDW 13.0 Plt Count 218 MPV 10.0 Immature Gran % (Auto) Immature Gran # (Auto) Neutrophils % Neutrophils % (Manual) 46 Band Neuts % (Manual) 42 H Lymphocytes % Lymphocytes % (Manual) 1 L Monocytes % Monocytes % (Manual) 3 Eosinophils % Basophils % Nucleated RBC % Immature Granulocytes 7 H Neutrophils # Neutrophils # (Manual) 6.1 H Lymphocytes # Lymphocytes # (Manual) 0.1 L Monocytes # Monocytes # (Manual) 0.4 Eosinophils # Absolute Basophils Atypic/Reactive Lymphs 1 Platelet Estimate Normal Hypochromasia 1+ ESR PT INR (Anticoag Therapy) PTT (Ginny) D-Dimer pCO2 59.9 H 57.3 H pO2 63.0 L 61.2 L HCO3 35.6 H 32.2 H Total CO2 37.4 H 34.0 H Base Excess 8.6 H 5.5 H ABG pH 7.39 7.37 ABG O2 Sat (Measured) 91.4 L 90.2 L Sodium Plasma Sodium Potassium Chloride Carbon Dioxide Anion Gap BUN Creatinine Est GFR (Non-Af Amer) BUN/Creatinine Ratio Random Glucose Lactic Acid, Venous Calcium Calcium Adj for Albumin Total Bilirubin AST ALT Alkaline Phosphatase Troponin I B-Natriuretic Peptide Total Protein Albumin 01/10/20 01/10/20 01/10/20 06:31 06:31 10:02 WBC RBC Hgb Hct MCV MCH MCHC RDW Plt Count MPV Immature Gran % (Auto) Immature Gran # (Auto) Neutrophils % Neutrophils % (Manual) Band Neuts % (Manual) Lymphocytes % Lymphocytes % (Manual) Monocytes % Monocytes % (Manual) Eosinophils % Basophils % Nucleated RBC % Immature Granulocytes Neutrophils # Neutrophils # (Manual) Lymphocytes # Lymphocytes # (Manual) Monocytes # Monocytes # (Manual) Eosinophils # Absolute Basophils Atypic/Reactive Lymphs Platelet Estimate Hypochromasia ESR 13 PT INR (Anticoag Therapy) PTT ([facility]) D-Dimer pCO2 pO2 HCO3 Total CO2 Base Excess ABG pH ABG O2 Sat (Measured) Sodium 137 Plasma Sodium 137 Potassium 3.4 Chloride 96 L Carbon Dioxide 29.8 Anion Gap 14.6 H BUN 23 D Creatinine 1.92 H D Est GFR (Non-Af Amer) 27 L D BUN/Creatinine Ratio 12.0 Random Glucose 93 Lactic Acid, Venous 4.9 H* Calcium 9.8 Calcium Adj for Albumin 10.8 H Total Bilirubin 0.9 AST 26 ALT 21 Alkaline Phosphatase 57 Troponin I B-Natriuretic Peptide Total Protein 5.2 L Albumin 2.4 L 01/10/20 01/10/20 01/10/20 12:40 14:58 14:58 WBC RBC Hgb Hct MCV MCH MCHC RDW Plt Count MPV Immature Gran % (Auto) Immature Gran # (Auto) Neutrophils % Neutrophils % (Manual) Band Neuts % (Manual) Lymphocytes % Lymphocytes % (Manual) Monocytes % Monocytes % (Manual) Eosinophils % Basophils % Nucleated RBC % Immature Granulocytes Neutrophils # Neutrophils # (Manual) Lymphocytes # Lymphocytes # (Manual) Monocytes # Monocytes # (Manual) Eosinophils # Absolute Basophils Atypic/Reactive Lymphs Platelet Estimate Hypochromasia ESR PT 12.1 H INR (Anticoag Therapy) 1.23 H PTT (Ginny) 33.6 H D-Dimer 3.96 H pCO2 pO2 HCO3 Total CO2 Base Excess ABG pH ABG O2 Sat (Measured) Sodium Plasma Sodium Potassium Chloride Carbon Dioxide Anion Gap BUN Creatinine Est GFR (Non-Af Amer) BUN/Creatinine Ratio Random Glucose Lactic Acid, Venous 4.5 H* Calcium Calcium Adj for Albumin Total Bilirubin AST ALT Alkaline Phosphatase Troponin I B-Natriuretic Peptide Total Protein Albumin 01/10/20 14:58 WBC RBC Hgb Hct MCV MCH MCHC RDW Plt Count MPV Immature Gran % (Auto) Immature Gran # (Auto) Neutrophils % Neutrophils % (Manual) Band Neuts % (Manual) Lymphocytes % Lymphocytes % (Manual) Monocytes % Monocytes % (Manual) Eosinophils % Basophils % Nucleated RBC % Immature Granulocytes Neutrophils # Neutrophils # (Manual) Lymphocytes # Lymphocytes # (Manual) Monocytes # Monocytes # (Manual) Eosinophils # Absolute Basophils Atypic/Reactive Lymphs Platelet Estimate Hypochromasia ESR PT INR (Anticoag Therapy) PTT (Ginny) D-Dimer pCO2 pO2 HCO3 Total CO2 Base Excess ABG pH ABG O2 Sat (Measured) Sodium 136 Plasma Sodium 136 Potassium 3.8 Chloride 95 L Carbon Dioxide 33.3 H Anion Gap 11.5 BUN 32 H Creatinine 2.45 H D Est GFR (Non-Af Amer) 20 L D BUN/Creatinine Ratio 13.1 Random Glucose 83 Lactic Acid, Venous Calcium 9.9 Calcium Adj for Albumin Total Bilirubin AST ALT Alkaline Phosphatase Troponin I B-Natriuretic Peptide Total Protein Albumin - Medications Medications: Active Medications Acetaminophen (Tylenol) 325 mg PO HS [facility] Stop: 02/08/20 21:01 Last Admin: 01/09/20 21:14 Dose: 325 mg Documented by: Aspirin (Aspirin Enteric Coated) 81 mg PO DAILY [facility] Stop: 02/09/20 09:01 Last Admin: 01/10/20 10:10 Dose: Not Given Documented by: Cholecalciferol (Vitamin D) 4,000 unit PO DAILY [facility] Stop: 02/09/20 09:01 Last Admin: 01/10/20 10:12 Dose: Not Given Documented by: Enoxaparin Sodium (Lovenox) 40 mg SC Q24H [facility] Stop: 02/08/20 20:01 Last Admin: 01/09/20 21:10 Dose: 40 mg Documented by: Escitalopram Oxalate (Lexapro) 10 mg PO DAILY [facility] Stop: 02/09/20 09:01 Last Admin: 01/10/20 10:12 Dose: Not Given Documented by: Fluticasone Propionate (Flonase) 2 spray NS DAILY [facility] Stop: 02/09/20 09:01 Last Admin: 01/10/20 10:11 Dose: Not Given Documented by: Furosemide (Lasix) 80 mg PO DAILY [facility] Stop: 02/09/20 09:01 Last Admin: 01/10/20 10:11 Dose: Not Given Documented by: Gabapentin (Neurontin) 300 mg PO TID [facility] Stop: 02/09/20 09:01 Last Admin: 01/10/20 13:00 Dose: Not Given Documented by: Sodium Chloride (Sodium Chloride 0.9%) 1,000 mls @ 250 mls/hr IV .Q4H PRN PRN Reason: HYDRATION Last Admin: 01/10/20 10:13 Dose: 250 mls/hr Documented by: VANCOMYCIN/WATER FOR INJ (PEG) (Vancomycin) 1.5 gm in 300 mls @ 100 mls/hr IV Q24H [facility]; Protocol Stop: 02/09/20 11:01 Last Infusion: 01/10/20 13:21 Dose: Infused Documented by: Acetaminophen (Ofirmev) 1,000 mg in 100 mls @ 400 mls/hr IV Q4H PRN PRN Reason: Pain/Fever Stop: 02/09/20 05:12 Last Admin: 01/10/20 15:02 Dose: 400 mls/hr Documented by: Sodium Chloride (Sodium Chloride 0.9%) 500 mls @ 250 mls/hr IV .Q2H PRN PRN Reason: HYDRATION Stop: 02/09/20 05:16 Last Infusion: 01/10/20 08:45 Dose: Infused Documented by: Pantoprazole Sodium 40 mg/ (Sodium Chloride) 100 mls @ 400 mls/hr IV Q24H [facility] Stop: 02/09/20 13:01 Last Infusion: 01/10/20 15:39 Dose: Infused Documented by: Loratadine (Claritin) 10 mg PO DAILY [facility] Stop: 02/09/20 09:01 Last Admin: 01/10/20 10:11 Dose: Not Given Documented by: Metoprolol Tartrate (Lopressor) 25 mg PO BID [facility] Stop: 02/08/20 21:01 Last Admin: 01/10/20 10:12 Dose: Not Given Documented by: Oxycodone HCl (Oxycodone) 2.[address] [facility] Stop: 02/08/20 21:01 Last Admin: 01/09/20 21:11 Dose: 2.5 mg Documented by: Tolterodine Tartrate (Detrol La) 2 mg PO DAILY [facility] Stop: 02/09/20 09:01 Last Admin: 01/10/20 10:11 Dose: Not Given Documented by: Discontinued Medications Acetaminophen (Tylenol) [address] [facility] Stop: 02/08/20 21:01 Last Admin: 01/09/20 21:15 Dose: 325 mg Documented by: Furosemide (Lasix) 80 mg IV ONCE ONE Stop: 09/21/20 16:23 Last Admin: 01/09/20 17:15 Dose: 80 mg Documented by: VANCOMYCIN/WATER FOR INJ (PEG) (Vancomycin) 2 gm in 400 mls @ 75 mls/hr IV ONCE ONE Stop: 01/10/20 02:19 Last Admin: 01/09/20 23:03 Dose: 75 mls/hr Documented by: Pantoprazole Sodium (Protonix) 40 mg PO DAILY@0700 [facility] Stop: 02/09/20 07:01 Last Admin: 01/10/20 07:36 Dose: Not Given Documented by: - Disposition Disposition: Home self-care Condition: Critical Discharge Date: 01/10/20
[2020-01-10 19:59] VITALS: BP 91/46
[2020-01-11] MEDS ORDERED: ESCITALOPRAM OXALATE 10 MG TAB PO SCH (09:00)
[2020-01-13] MEDS ORDERED: VANCOMYCIN HCL LEVEL XX ONE (10:30)
== END 2020-01-10 18:59 | disposition short-term general hospital (02) | DRG 871 ==
LOC: ER 15:54 → MS 15:54 → OBSVTOIN 18:39 → MS 19:50
PROVIDERS: ADMIT Family Medicine; ATTEND Family Medicine
DX: I87.2 Venous insufficiency (chronic) (peripheral); F03.90 Unspecified dementia, unspecified severity, without behavioral disturbance, psychotic disturbance, mood disturbance, and anxiety; L03.116 Cellulitis of left lower limb; R34 Anuria and oliguria; J44.9 Chronic obstructive pulmonary disease, unspecified; I50.33 Acute on chronic diastolic (congestive) heart failure; A40.8 Other streptococcal sepsis; Z68.44 Body mass index [BMI] 60.0-69.9, adult; I47.1 Supraventricular tachycardia; R60.0 Localized edema; I95.89 Other hypotension; J96.02 Acute respiratory failure with hypercapnia; N17.9 Acute kidney failure, unspecified; R65.21 Severe sepsis with septic shock; L03.115 Cellulitis of right lower limb; E66.01 Morbid (severe) obesity due to excess calories; Z99.81 Dependence on supplemental oxygen